=== PATIENT | female | born 1935 | race Caucasian/White ===

== ENCOUNTER 2017-04-22 11:33 | Emergency (ER) | payer MEDICARE, BC ==
[2017-04-22] MEDS: BENZONATATE 100 MG CAPSULE PO ONE (12:03)
--- NOTE | 2017-04-22 12:15 | Emergency Department Record ---
History of Present Illness - General Chief Complaint: Cough Stated Complaint: COUGH Time Seen by Provider: 04/22/17 11:52 Source: Patient Mode of Arrival: Wheelchair Limitations: No limitations - History of Present Illness Initial Comments: The patient is here due to coughing for one day. She denies any CP, SOB, fever, chills, or sputum production but is having significant coughing fits. There is no reported Ap, nausea, vomiting, or diarrhea. MD Complaint: Cough Onset/Timin -: Days(s) Consistency: Constant - Related Data Home Medications Medication Instructions Recorded Confirmed Last Taken Aspirin [Adult Aspirin Regimen] 81 mg PO DAILY 04/22/17 04/22/17 04/22/17 Diltiazem HCl [Diltiazem 24Hr ER] 180 mg PO DAILY 04/22/17 04/22/17 04/22/17 Furosemide [Furosemide] 40 mg PO DAILY 04/22/17 04/22/17 04/22/17 Potassium Chloride [Klor-Con M20] 20 meq PO DAILY 04/22/17 04/22/17 04/22/17 Rosuvastatin Calcium [Rosuvastatin 10 mg PO DAILY 04/22/17 04/22/17 04/22/17 Calcium] Warfarin Sodium [Warfarin Sodium] 2.5 mg PO DAILY 04/22/17 04/22/17 04/22/17 Previous Rx's Medication Instructions Recorded Albuterol Sulfate [Proair Hfa] 2 puff IH QID PRN #1 inhaler 04/22/17 Benzonatate [Tessalon] 1 cap PO Q8H PRN #20 cap 04/22/17 Doxycycline Monohydrate [Mondoxyne 100 mg PO BID #14 capsule 04/22/17 Nl] Allergies Allergy/AdvReac Type Severity Reaction Status Date / Time NO KNOWN DRUG ALLERGY Allergy PT UNSURE Uncoded 04/22/17 11:34 OF REACTION Travel Screening - Travel/Exposure Within Last 30 Days Have you traveled within the last 30 days?: No - Travel/Exposure Within Last Year Have you traveled outside the [place] in the last year?: No - Additonal Travel Details Have you been exposed to anyone with a communicable illness?: No - Travel Symptoms Symptom Screening: None Review of Systems Constitutional: Reports: Malaise. Denies: Chills, Fever Eyes: Denies: Eye discharge ENT: Denies: Congestion Respiratory: Reports: Cough. Denies: Dyspnea, Hemoptysis, Stridor, Wheezes Cardiovascular: Denies: Arrhythmia, Chest pain Past Medical History - SOCIAL HISTORY Smoking Status: Never smoker Alcohol Use: None Drug Use: None - RESPIRATORY Hx Respiratory Disorders: No - CARDIOVASCULAR Hx Cardio Disorders: Yes Hx CHF: Yes Comment:: high cholesterol - NEURO Hx Neuro Disorders: No - GI Hx GI Disorders: No - Hx Genitourinary Disorders: No - ENDOCRINE Hx Endocrine Disorders: Yes Hx Diabetes: Yes (diet controlled) - MUSCULOSKELETAL Hx Musculoskeletal Disorders: No - PSYCH Hx Psych Problems: No - HEMATOLOGY/ONCOLOGY Hx Hematology/Oncology Disorders: No Family Medical History Any Significant Family History?: No Physical Exam - General General Appearance: Alert, Oriented x3, Cooperative, No acute distress - Head Head exam: Atraumatic, Normocephalic, Normal inspection - Eye Eye exam: Normal appearance, PERRL - ENT Throat exam: Normal inspection. negative: Tonsillar erythema, Tonsillar exudate - Neck Neck exam: Normal inspection, Full ROM. negative: Tenderness - Respiratory Respiratory exam: Normal lung sounds bilaterally. negative: Rales, Respiratory distress, Rhonchi, Stridor, Wheezes - Cardiovascular Cardiovascular Exam: Regular rate, Normal rhythm, Normal heart sounds - Extremities Extremities exam: Pedal edema (chronic.). negative: Normal inspection Course Vital Signs 04/22/17 11:46 Temperature 98.4 F Pulse Rate 74 Respiratory 20 Rate Blood Pressure 129/49 Pulse Ox 92 L - Reevaluation(s) Reevaluation #1: The patient is doing OK at this time. She is still coughing but her O2 sats are 92-95%. I did discuss the lab results and the need for F/U. 04/22/17 13:08 Medical Decision Making - Data Complexity MDM Data: Labs Ordered and/or Reviewed, X-Ray Ordered and/or Reviewed - Lab Data Result diagrams: 04/22/17 12:06 04/22/17 12:06 - Radiology Data Radiology results: Report reviewed (CXR: Chronic interstitial changes, no acute infiltrate.) Disposition Disposition: Discharge Clinical Impression: Upper respiratory infection, acute Disposition: Home, Self-Care Condition: (2) Stable Instructions: Upper Respiratory Infection (ED) Additional Instructions: Please take the Doxycycline as directed and use the Tessalon and Proventil as directed. Please see your PCP early next week for recheck. Return to the ER for any worsening cough, any trouble breathing or fever. Prescriptions: Albuterol Sulfate [Proair Hfa] 2 puff IH QID PRN #1 inhaler PRN Reason: Cough And Difficulty Breathing Benzonatate [Tessalon] 1 cap PO Q8H PRN #20 cap PRN Reason: Cough Doxycycline Monohydrate [Mondoxyne Nl] 100 mg PO BID #14 capsule Forms: Patient Portal Access Time of Disposition: 13:11 Quality - Quality Measures Quality Measures: N/A - Blood Pressure Screening View Details: Yes Does Patient Have Any of the Following: No Blood Pressure Classification: Normal BP Reading Systolic Measurement: 119 Diastolic Measurement: 57 Screening for High Blood Pressure: < Normal BP, F/U Not Required > [G8783]
[2017-04-22 12:18] LABS: HEMATOCRIT 39.1 % (35.0-47.0); HEMOGLOBIN 12.2 gm/dl (11.6-16.0); MEAN CORPUSCULAR HEMOGLOBIN 26.5 pg (27-33); MEAN CORPUSCULAR HGB CONC 31.2 g/dl (32-36); MEAN PLATELET VOLUME 9.5 fl (7.4-10.4); PLATELET COUNT 222 K/uL (130-400); RED CELL DISTRIBUTION WIDTH 18.5 % (11.5-14.5)
[2017-04-22 12:30] LABS: INR 2.19; PARTIAL THROMBOPLASTIN TIME 36.3 SECONDS (24.5-39.1); PLATELET ESTIMATE NORMAL (NORMAL); PROTHROMBIN TIME (PATIENT) 23.8 SECONDS (9.5-12.1)
[2017-04-22 12:31] LABS: CREATININE 1.1 mg/dL (0.5-0.9)
[2017-04-22] MEDS: DOXYCYCLINE HYCLATE 100 MG CAPSULE PO ONE (12:59)
--- NOTE | 2017-04-23 07:20 | RADIOLOGY REPORT ---
EXAM: CHEST, TWO VIEWS HISTORY: CHRONIC NONPRODUCTIVE COUGH. TECHNIQUE: Upright PA and lateral views of the chest were obtained. Comparison: Chest single view dated 09/06/11. FINDINGS: The cardiac silhouette projects mildly enlarged. No pulmonary venous hypertension is seen. Mixed primarily coarse reticular opacities are noted in each lung most pronounced in the lower zones. These are more pronounced than previously demonstrated. These findings are suspicious for pulmonary fibrosis/chronic interstitial change. Mild superimposed alveolitis particularly in the right mid to lower lung would be difficult to, however, exclude. No lung consolidation, costophrenic angle blunting or pneumothorax. There are degenerative changes scattered within the visualized spine associated with accentuation of the normal thoracic kyphosis, IMPRESSION: 1. CARDIOMEGALY WITHOUT PULMONARY VENOUS HYPERTENSION. 2. MIXED PRIMARILY RETICULAR OPACITIES SCATTERED IN EACH LUNG MOST PRONOUNCED IN THE LOWER ZONES SUSPICIOUS FOR CHRONIC INTERSTITIAL CHANGE/FIBROSIS. MINOR UNDERLYING ALVEOLITIS WOULD BE DIFFICULT TO EXCLUDE, PARTICULARLY AT THE MID TO LOWER RIGHT LUNG LEVEL. A COMPONENT OF INTERSTITIAL EDEMA THOUGH LESS LIKELY IS NOT EXCLUDED. JOB NUMBER: [id number] [facility]
== END 2017-04-22 13:24 | disposition home or self-care (01) ==
LOC: ER 11:33
DX: J06.9 Acute upper respiratory infection, unspecified (principal); R05 Cough; I50.9 Heart failure, unspecified; Z79.01 Long term (current) use of anticoagulants
CPT/HCPCS: 71046; 80048; 85027; 85610; 85730; 99283; 99284

== ENCOUNTER 2017-04-23 08:26 | Inpatient (IN) | payer MEDICARE, BC ==
[2017-04-23] MEDS ORDERED: SODIUM CHLORIDE 0.9% 500 ML IV ONE (08:27)
[2017-04-23] MEDS ORDERED: ACETAMINOPHEN 1,000 MG/100 ML BTL IVPB ONE (08:28)
--- NOTE | 2017-04-23 08:34 | Emergency Department Record ---
History of Present Illness - General Chief Complaint: Fall Injury Stated Complaint: fall Time Seen by Provider: 04/23/17 08:26 Source: Patient, Family, EMS Mode of Arrival: Ambulatory Limitations: No limitations - History of Present Illness Initial Comments: 81 yo female presents after a fall. She was using her walker going to the bathroom. She lost control and fell. She injured her left knee. She was not able to stand up du to pain and swelling. She is on Coumadin. She did not his her head. No other injuries. She denies any LOC. No neck pain, chest pain or back pain. No hip pain. She has had a recent URI. Her PCP is Dr Shelby. She is on Coumadin for atrial fibrillation. The patient lives with her son. She had called him for help when she was unable to get up on her own. Complaint: Fall -: Hour(s) (1) Fall From: Standing When Fall Occurred: 1 hour DEBONER Fall Witnessed: No Place Fall Occurred: Home Loss of Consciousness: None Symptoms Prior to Fall: None Location: Other (knee left) Location - Extremities: Left: Knee Severity: Severe Quality: Aching Context: Recent illness (URI) Associated Symptoms: Denies - Beata Coma Scale Eye Response: (4) Open spontaneously Motor Response: (6) Obeys commands Verbal Response: (5) Oriented Beata Total: 15 - Related Data Home Medications Medication Instructions Recorded Confirmed Last Taken Metoprolol Tartrate [Lopressor] 50 mg PO BID 04/23/17 04/23/17 1 Day Ago ~04/22/17 Previous Rx's Medication Instructions Recorded Albuterol Sulfate [Proair Hfa] 2 puff IH QID PRN #1 inhaler 04/22/17 Benzonatate [Tessalon] 1 cap PO Q8H PRN #20 cap 04/22/17 Doxycycline Monohydrate [Mondoxyne 100 mg PO BID #14 capsule 04/22/17 Nl] Allergies Allergy/AdvReac Type Severity Reaction Status Date / Time NO KNOWN DRUG ALLERGY Allergy PT UNSURE Uncoded 04/23/17 08:33 OF REACTION Review of Systems Constitutional: Denies: Chills, Fever, Malaise, Night sweats, Weakness Eyes: Denies: Eye discharge, Eye pain, Photophobia, Vision change ENT: Reports: Congestion. Denies: Throat pain Respiratory: Reports: Cough. Denies: Dyspnea, Hemoptysis, Stridor, Wheezes Cardiovascular: Reports: Arrhythmia, Edema. Denies: Chest pain, Palpitations, Syncope Endocrine: Denies: Fatigue, Polydipsia Gastrointestinal: Denies: Abdominal pain, Diarrhea, Nausea, Vomiting Genitourinary: Denies: Dysuria Musculoskeletal: Reports: As per HPI, Arthralgia, Joint swelling, Myalgia. Denies: Back pain, Neck pain Skin: Reports: As per HPI, Bruising, Change in color Neurological: Denies: Confusion, Headache, Numbness, Tremors, Vertigo, Weakness Psychiatric: Denies: Anxiety Hematological/Lymphatic: Denies: Blood Clots, Easy bleeding, Easy bruising Past Medical History - SOCIAL HISTORY Smoking Status: Never smoker Drug Use: None - RESPIRATORY Hx Respiratory Disorders: No - CARDIOVASCULAR Hx Cardio Disorders: Yes Hx CHF: Yes Comment:: high cholesterol - NEURO Hx Neuro Disorders: No - GI Hx GI Disorders: No - Hx Genitourinary Disorders: No - ENDOCRINE Hx Endocrine Disorders: Yes Hx Diabetes: Yes (diet controlled) - MUSCULOSKELETAL Hx Musculoskeletal Disorders: No - PSYCH Hx Psych Problems: No - HEMATOLOGY/ONCOLOGY Hx Hematology/Oncology Disorders: No Physical Exam - General General Appearance: Alert, Oriented x3, Cooperative, No acute distress Limitations: No limitations - Head Head exam: Atraumatic, Normocephalic, Normal inspection Head exam detail: negative: Abrasion, Contusion, Hematoma, Laceration - Eye Eye exam: Normal appearance, PERRL. negative: Conjunctival injection, Periorbital swelling, Scleral icterus - ENT ENT exam: Normal exam, Mucous membranes moist Ear exam: Normal external inspection Nasal Exam: Normal inspection Mouth exam: Normal external inspection Teeth exam: Normal inspection Throat exam: Normal inspection. negative: Tonsillar erythema, Tonsillomegaly, Tonsillar exudate, R peritonsillar mass, L peritonsillar mass - Neck Neck exam: Normal inspection, Full ROM. negative: Tenderness - Respiratory Respiratory exam: Normal lung sounds bilaterally, Decreased breath sounds, Rhonchi. negative: Accessory muscle use, Prolonged expiratory, Respiratory distress, Stridor, Wheezes - Cardiovascular Cardiovascular Exam: Irregular rhythm. negative: Regular rate Peripheral Pulses: 2+: Radial (R), Radial (L) - GI/Abdominal GI/Abdominal exam: Soft. negative: Distended, Guarding, Rebound, Rigid, Tenderness - Rectal Rectal exam: Deferred - exam: Deferred - Extremities Extremities exam: Joint swelling, Normal capillary refill, Tenderness, Other ( hip and ankle are non tender, She was able to bear weight. She has some pain laterally with ROM). negative: Normal inspection, Calf tenderness, Full ROM, Pedal edema Image of Full Body: 1 - lateral knee tenderness, lateral knee hematoma, intact skin, pain with ROM - Back Back exam: Reports: Normal inspection, Full ROM. Denies: Muscle spasm, Rash noted, Tenderness - Neurological Neurological exam: Alert, Normal gait, Oriented X3 - Psychiatric Psychiatric exam: Normal affect, Normal mood - Skin Skin exam: Dry, Intact, Warm. negative: Normal color (bruise to lateral knee) Course - Reevaluation(s) Reevaluation #1: 04/23/17 08:39 ED visit from yesterday reviewed Chronic changes on the CXR. Rx provided for bronchitis. EKG 08:34 Atrial fibrillation, rate of 99, intervals RBBB, Qtc 493, diffuse non specific ST changes. Prior was on 10/16/11 was afib 04/23/17 08:44 04/23/17 08:51 No acute changes on the CBC 04/23/17 09:06 The Influenza A is positive The CMP with mild changes in AG and HCO3. 04/23/17 09:07 INR is 2.2 04/23/17 09:08 The XR was read as osteopenia no acute fracture 04/23/17 09:20 The patient is not better from her fly symptoms. Her oxygen levels drop to upper 80's. Given her frail state and injury she will be admitted to [facility]. I LINDA Bain regarding admission. Tamiflu started. 04/23/17 09:29 Admission orders were placed Medical Decision Making - Lab Data Result diagrams: 04/23/17 08:30 04/23/17 08:30 Disposition Disposition: Admit Clinical Impression: Influenza A, Hematoma, Hypoxia Knee contusion Qualifiers: Encounter type: initial encounter Laterality: left Qualified Code(s): S80.02XA - Contusion of left knee, initial encounter Disposition: Still a Patient at [facility] Decision to Admit: Admit from ER Decision to Admit Date: 04/23/17 Decision to Admit Time: :11 Forms: Patient Portal Access Time of Disposition: :11 Quality - Quality Measures Quality Measures: N/A - Blood Pressure Screening Does Patient Have Any of the Following: No Blood Pressure Classification: Hypertensive Reading Systolic Measurement: 132 Diastolic Measurement: 115 Screening for High Blood Pressure: < Pre-Hypertensive BP, F/U Documented > [ G8950] Pre-Hypertensive Follow-up Interventions: Referral to alternative/primary care provider.
[2017-04-23 08:41] LABS: BASO % 0.2 % (0-6); EOS % 0.2 % (0-6); HEMATOCRIT 40.5 % (35.0-47.0); HEMOGLOBIN 12.6 gm/dl (11.6-16.0); LYMPH % 4.9 % (16-45); MEAN CELL VOLUME 85.4 fl (81-97); MEAN CORPUSCULAR HEMOGLOBIN 26.6 pg (27-33); MEAN CORPUSCULAR HGB CONC 31.1 g/dl (32-36); MEAN PLATELET VOLUME 9.5 fl (7.4-10.4); MONO % 9.7 % (0-9); PLATELET COUNT 207 K/uL (130-400); RED BLOOD COUNT 4.74 M/uL (3.80-5.40); RED CELL DISTRIBUTION WIDTH 18.7 % (11.5-14.5); WHITE BLOOD COUNT W/O DIFF 4.9 K/uL (4.2-12.2)
[2017-04-23 08:54] LABS: INR 2.26; PARTIAL THROMBOPLASTIN TIME 37.1 SECONDS (24.5-39.1); PROTHROMBIN TIME (PATIENT) 24.6 SECONDS (9.5-12.1)
[2017-04-23 08:55] LABS: BLOOD UREA NITROGEN 21 mg/dL (8-23); CREATININE 0.9 mg/dL (0.5-0.9); EST GLOMERULAR FILTRATION RATE > 60 mL/min
[2017-04-23 08:56] LABS: TOTAL PROTEIN 7.5 g/dL (6.6-8.7)
[2017-04-23 08:58] LABS: GLUCOSE,RANDOM 149 mg/dL (74-109)
[2017-04-23 09:00] LABS: ALT/SGPT 13 U/L (<33)
[2017-04-23 09:01] LABS: ALB/GLOB RATIO 1.1 (1.1-1.8); ALKALINE PHOSPHATASE 103 U/L (35-104); AST/SGOT 31 U/L (10.0-35.0)
[2017-04-23 09:03] LABS: INFLUENZA A POSITIVE (NEGATIVE); INFLUENZA B NEGATIVE (NEGATIVE)
[2017-04-23] MEDS ORDERED: OSTELTAMIVIR 75 MG CAP PO ONE (09:05)
[2017-04-23] MEDS ORDERED: BENZONATATE 100 MG CAPSULE PO PRN (09:18)
[2017-04-23 09:45] LABS: ABO GROUP O; RH TYPE POSITIVE
[2017-04-23 09:51] LABS: ANTIBODY SCREEN NEGATIVE (NEGATIVE)
[2017-04-23] MEDS ORDERED: DOXYCYCLINE HYCLATE 100 MG CAPSULE PO SCH (10:00)
[2017-04-23] MEDS ORDERED: POTASSIUM CHLORIDE 20 MEQ TABLET PO SCH (10:00)
[2017-04-23] MEDS: FUROSEMIDE 40 MG TABLET PO SCH ×2 (11:17→13:53)
[2017-04-23] MEDS: METOPROLOL TART 50 MG TABLET PO SCH ×2 (11:17→22:55)
[2017-04-23] MEDS: ATORVASTATIN 20 MG TABLET PO SCH (11:17)
[2017-04-23] MEDS: DILTIAZEM 180MG CR CAPSULE PO SCH (11:18)
[2017-04-23] MEDS ORDERED: ACETAMINOPHEN 1,000 MG/100 ML BTL IVPB SCH (12:41)
[2017-04-23] MEDS ORDERED: 0.9 % SODIUM CHLORIDE 1000ML 1,000 ML IV PRN (12:41)
[2017-04-23] MEDS ORDERED: MORPHINE SULFATE 5 MG/ML PFS IVP PRN ×2 (12:41→15:21)
--- NOTE | 2017-04-23 14:30 | RADIOLOGY REPORT ---
EXAM: LEFT KNEE, TWO VIEWS HISTORY: FALL WITH TRAUMA TO ANTEROLATERAL ASPECT OF KNEE. COUMADIN THERAPY. TECHNIQUE: AP and crosstable lateral views of the left knee were obtained. Encounter: Initial. FINDINGS: There is mild diffuse osteopenia. No acute fracture, dislocation, or destructive bone lesion is seen. There are mild osteoarthritic changes of the medial and lateral compartments. Moderate to severe degenerative change of the patellofemoral compartment. No definite joint effusion. There is an area of soft tissue swelling anterolaterally measuring approximately 5.8 x 4.9 cm. Given history of trauma, this is likely a hematoma. IMPRESSION: 1. OSTEOPENIA. NO ACUTE FRACTURE NOR DISLOCATION. 2. TRICOMPARTMENTAL DEGENERATIVE CHANGES MOST PRONOUNCED IN THE PATELLOFEMORAL JOINT WHERE THE CHANGES ARE MODERATE TO SEVERE. 3. MODERATE ANTEROLATERAL SOFT TISSUE SWELLING SUSPICIOUS FOR HEMATOMA. JOB NUMBER: [id number] MTDD
[2017-04-23] MEDS ORDERED: 0.9 % SODIUM CHLORIDE 1000ML 1,000 ML IV ONE (15:20)
[2017-04-23] MEDS: ACETAMINOPHEN 500 MG TABLET PO SCH (17:33)
[2017-04-23] MEDS: OSTELTAMIVIR 75 MG CAP PO SCH (22:55)
[2017-04-24] MEDS: ACETAMINOPHEN 500 MG TABLET PO SCH ×4 (05:43→17:25)
[2017-04-24 07:44] LABS: INR 1.67; PROTHROMBIN TIME (PATIENT) 18.1 SECONDS (9.5-12.1)
[2017-04-24] MEDS: METOPROLOL TART 50 MG TABLET PO SCH ×2 (10:16→22:01)
[2017-04-24] MEDS: DILTIAZEM 180MG CR CAPSULE PO SCH (10:16)
[2017-04-24] MEDS: ATORVASTATIN 20 MG TABLET PO SCH (10:17)
[2017-04-24] MEDS: OSTELTAMIVIR 75 MG CAP PO SCH ×2 (10:17→22:02)
[2017-04-25] MEDS: ACETAMINOPHEN 500 MG TABLET PO SCH ×3 (06:07→13:12)
[2017-04-25 07:30] LABS: HEMATOCRIT 36.4 % (35.0-47.0); HEMOGLOBIN 11.2 gm/dl (11.6-16.0)
[2017-04-25 07:40] LABS: INR 1.58; PROTHROMBIN TIME (PATIENT) 17.1 SECONDS (9.5-12.1)
[2017-04-25 07:47] LABS: BLOOD UREA NITROGEN 20 mg/dL (8-23); CREATININE 0.7 mg/dL (0.5-0.9); EST GLOMERULAR FILTRATION RATE > 60 mL/min; GLUCOSE,RANDOM 88 mg/dL (74-109)
[2017-04-25] MEDS: ATORVASTATIN 20 MG TABLET PO SCH (10:45)
[2017-04-25] MEDS: OSTELTAMIVIR 75 MG CAP PO SCH (10:46)
[2017-04-25] MEDS: METOPROLOL TART 50 MG TABLET PO SCH (10:46)
[2017-04-25] MEDS: DILTIAZEM 180MG CR CAPSULE PO SCH (10:47)
[2017-04-25] MEDS ORDERED: ALBUTEROL HFA 8 GM INHALER INH SCH (14:00)
--- NOTE | 2017-04-25 14:37 | Discharge Note ---
VTE H&P Assessment - Risk for VTE Risk for VTE: Yes Risk Level: Moderate Risk Assessment Date: 04/23/17 Risk Assessment Time: 10:00 VTE Orders Placed or Will Be Placed: No VTE Reason for No Prophylaxis: Complication of Medical Care (on coumadin ) Discharge Medications - Discharge Medications Prescriptions: Albuterol Sulfate [Ventolin Hfa] 2 puff INH RESP.Q4H.WA #1 inhaler Oseltamivir Phosphate [Tamiflu] 75 mg PO BID #10 capsule Home Medications: Ambulatory Orders Albuterol Sulfate [Proair Hfa] 2 puff IH QID PRN #1 inhaler 04/22/17 [Last Taken 1 Day Ago ~04/22/17] Benzonatate [Tessalon Perles] 1 cap PO Q8H PRN #20 cap 04/22/17 [Last Taken 1 Day Ago ~04/22/17] Diltiazem HCl [Diltiazem 24Hr ER] 180 mg PO DAILY 04/22/17 [Last Taken 04/22/17] Rosuvastatin Calcium 10 mg PO DAILY 04/22/17 [Last Taken 04/22/17] Metoprolol Tartrate [Lopressor] 50 mg PO BID 04/23/17 [Last Taken 1 Day Ago ~02/27] Albuterol Sulfate [Ventolin Hfa] 2 puff INH RESP.Q4H.WA #1 inhaler 04/25/17 [ Last Taken Unknown] Oseltamivir Phosphate [Tamiflu] 75 mg PO BID #10 capsule 04/25/17 [Last Taken Unknown] Discharge Note - Date Date of Discharge Note: 04/25/17 Disposition: Home, Self-Care Condition: (1) Good Additional Instructions: follow up with Dr. Shelby in one week off coumadin and aspirin for one week because of large hematoma left knee abelino wrap for left leg may leave it off at night tamiflu 75 mg Twice a day for 5 more days stop lasix and potassium Forms: Patient Portal Access
--- NOTE | 2017-04-26 07:52 | History and Physical Report ---
DATE OF ADMISSION: 04/23/2017 Surgeon: Wilbur Bain DO CHIEF COMPLAINT: Cough, wheezing, short of breath, positive for influenza, weakness, and large hematoma on the left lateral knee area, from a fall. HISTORY OF PRESENT ILLNESS: This 81-year-old female has a cough, congestion, wheezing, and weakness. She fell down at home and she came in by ambulance to the ER, evaluated by Dr. Forte. The patient was evaluated the day before by Dr. Wylie with a diagnosis of upper respiratory infection and started on doxycycline twice a day. The patient was too weak to go home, Dr. Forte felt that her respiratory status was worse with wheezing and having a pulse OX of 91% on room air, occasionally dipping down to 88% according to my phone conversation with him, but it is not documented in the chart. PAST MEDICAL HISTORY: Atrial fibrillation, on Coumadin therapy. Hypercholesterolemia, hypertension, diet-controlled diabetes. PAST SURGICAL HISTORY: Hysterectomy, breast biopsy. MEDICATIONS ON ADMISSION: 1. Coumadin daily, the exact dose will have to be explored, says 2.5 on the chart. 2. Crestor 10 mg daily. 3. Potassium chloride 20 mg daily. 4. Metoprolol tartrate 50 mg b.i.d. 5. Lasik 40 mg daily. 6. She was started on doxycycline yesterday twice a day. I am going to stop that at this time, because of diagnosis of influenza. 7. Diltiazem 180 mg daily. 8. Tessalon 1 cap q.8h. p.r.n. 9. Aspirin 81 mg daily. 10. ProAir inhaler 2 puffs q.i.d. p.r.n. ALLERGIES: No known drug allergies. FAMILY PSYCHOSOCIAL HISTORY: Documented in chart. She has never smoked. No drug or alcohol use. REVIEW OF SYSTEMS: HEENT: She has congestion, cough, cold for the last 3 days. CARDIOVASCULAR: No chest pain, palpitations, or arrhythmias. RESPIRATORY: She is wheezing and coughing, congested. GASTROINTESTINAL: No nausea, vomiting, diarrhea, black stools or bloody stools. GENITOURINARY: No dysuria, hematuria, or frequency or burning on urination. MUSCULOSKELETAL: No joint or bone abnormalities. She does have a large bruise on the left knee, lateral side, with an Deyvi wrap on it from the emergency department. NEUROLOGIC: No CVA paralysis or paresthesias. GYNECOLOGIC: No abnormal lumps in her breasts or vaginal bleeding. ENDOCRINE: She has diet controlled diabetes. No hypothyroidism. INTEGUMENT: No rash, ulcer, changes of moles, yellow skin, but she has a large hematoma on the lateral side of her left knee. PHYSICAL EXAMINATION: GENERAL: Height is 4 feet 11 inches, weight is 162 pounds. VITAL SIGNS: Temperature 98.7, pulse is 76, blood pressure is 131/67, respiratory rate is 22, pulse OX is 91% on 2 liters of O2. HEENT: Pupils are equal, round, and reactive to light and accomodation. Extraocular muscles intact. Throat is clear. Nose is clear. Tympanic membranes are leonard. She has congestion and posterior nasal drainage. No sore throat. NECK: Supple. No jugular venous distention, no hepatojugular reflux, no carotid bruits. Thyroid is smooth. CARDIOVASCULAR: Regular rate and rhythm without murmurs, clicks, rubs, or gallops. RESPIRATORY: Wheezing bilaterally with deep inspiration and coughing with deep inspiration, spasmodic. ABDOMEN: Soft, nontender, no hepatosplenomegaly, no mass, no tenderness. Bowel sounds are active, no bruits. EXTREMITIES: No pitting edema, no cyanosis, no clubbing. Full range of motion, peripheral pulses are good. There is a hematoma on the left lateral knee with an Deyvi wrap on it. BREASTS: Deferred. GYNECOLOGIC: Deferred. RECTAL: Deferred. NEUROLOGIC: Cranial nerves 2 through 12 intact. No gross defects. Sensation normal, strength normal, deep tendon reflexes equal bilaterally. Babinski's is negative. MENTAL STATUS: Alert and oriented x 3. IMPRESSION: 1. Influenza A. 2. Bronchitis. 3. Hypoxia with wheezing and coughing. 4. Hematoma of the left lateral leg area with an Deyvi wrap on it. 5. History of atrial fibrillation, on Coumadin therapy. 6. History of hypercholesterolemia. 7. History of hypertension. PLAN: 1. Cautious IV fluids. 2. We will stop the Lasik and potassium, stop the doxycycline. Continue the Tamiflu. 3. Gentle Deyvi wrap on the hematoma. 4. Stop the Coumadin for a few days to let this hematoma at least solidify. MTDD
--- NOTE | 2017-04-26 08:10 | Discharge Summary ---
DATE OF ADMISSION: 04/23/2017 DATE OF DISCHARGE: 04/25/2017 Attending physician: Wilbur Bain DO DISCHARGE DIAGNOSES: 1. Influenza bronchitis. 2. Hypoxia, which has resolved. 3. Hematoma, large, left knee area. 4. History of atrial fibrillation, on Coumadin. REASON FOR HOSPITALIZATION: Cough, congestion, and she fell, was very weak, could not get up, had a large hematoma to the left lower leg, and then she is positive for influenza A. She also has atrial fibrillation, on Coumadin therapy, and because of the hematoma, will stop the Coumadin and aspirin while the hematoma is at least coalescing, approximately 1 week. SIGNIFICANT FINDINGS: X-ray of the knee was negative for fracture. The chest x-ray, which was done on 04/22/2017, when she was in the emergency department, saw Dr. Wylie, showed cardiomegaly without pulmonary vascular congestion, chronic interstitial changes, fibrosis, but no acute infiltrate identified. LABORATORY AND TEST DATA: Influenza A positive. Her white count was 4900, hemoglobin was 12.6, her pulse OX in the emergency department was 88-87%. Dr. Wylie was concerned, wanted her admitted to the hospital to make sure she was stable. The PT/INR when she came in was 2.26. We let it drift down because of the large hematoma on the leg, rather than reversing it. On discharge, the PT/INR was 1.58. I recommended staying off the Coumadin and aspirin for 1 week and then restarting the Coumadin at that time if Dr. Shelby feels it is okay. The patient was started on Tamiflu 75 mg twice a day. The doxycycline was stopped. The Lasix and potassium were stopped. She was started on Ventolin inhaler 2 puffs 4 times a day. HOSPITAL COURSE: Gradually improved, walking around the room, with pulse OX being checked for respiratory. She did not qualify for home oxygen. She is stable to go home at this time. CONDITION ON DISCHARGE: Much improved. DISCHARGE INSTRUCTIONS: 1. Follow up with Dr. Shelyb in 1 week, sometime next week. 2. Off the Coumadin for [address] Shelby feels it is okay, she can restart the Coumadin back up again. 3. Ventolin inhaler 2 puffs 4 times a day. 4. Stop the Lasix. 5. Stop the potassium. 6. Tamiflu 75 mg b.i.d. for 5 more days. 7. Deyvi wrap to the left leg and the Deyvi wrap can be left off at night. 8. Continue her home medications of Crestor daily. 9. Lopressor twice a day 50 mg. 10. Stop the doxycycline because she has got influenza. 11. Diltiazem 180 mg once a day. 12. Tessalon Stevenes p.r.n. 13. Stop the aspirin. 14. Continue the inhaler of Ventolin. CC: Feliciano Shelby, DO KHAND
== END 2017-04-25 16:45 | disposition home or self-care (01) | DRG 195 ==
LOC: ER 08:26 → MEDSURG 10:47
PROVIDERS: ADMIT Emergency Medicine; ATTEND Emergency Medicine
DX: J10.1 Influenza due to other identified influenza virus with other respiratory manifestations (principal); I48.91 Unspecified atrial fibrillation; Z79.01 Long term (current) use of anticoagulants; E78.00 Pure hypercholesterolemia, unspecified; I10 Essential (primary) hypertension; S80.02XA Contusion of left knee, initial encounter; W18.30XA Fall on same level, unspecified, initial encounter; Z91.81 History of falling
CPT/HCPCS: 36416; 80048; 80053; 80320; 82948; 85014; 85018; 85027; 85610; 85730; 86850; 86900; 86901; 87400; 93005; 93010; 93041; 94620; 94640; 94760; 94761; 96374; 99223; 99233; 99239; 99285

== ENCOUNTER 2017-06-06 19:26 | Inpatient (IN) | payer MEDICARE, BC ==
[2017-06-06 19:50] LABS: BASO % 0.2 % (0-6); EOS % 0.6 % (0-6); GRAN % 79.2 % (47-80); HEMATOCRIT 41.1 % (35.0-47.0); HEMOGLOBIN 12.6 gm/dl (11.6-16.0); LYMPH % 6.5 % (16-45); MEAN CELL VOLUME 88.6 fl (81-97); MEAN CORPUSCULAR HEMOGLOBIN 27.2 pg (27-33); MEAN CORPUSCULAR HGB CONC 30.7 g/dl (32-36); MEAN PLATELET VOLUME 9.2 fl (7.4-10.4); MONO % 13.5 % (0-9); PLATELET COUNT 230 K/uL (130-400); RED BLOOD COUNT 4.64 M/uL (3.80-5.40); RED CELL DISTRIBUTION WIDTH 20.4 % (11.5-14.5); WHITE BLOOD COUNT W/O DIFF 6.2 K/uL (4.2-12.2)
[2017-06-06 19:59] LABS: BLOOD UREA NITROGEN 14 mg/dL (8-23); CREATININE 0.8 mg/dL (0.5-0.9); EST GLOMERULAR FILTRATION RATE > 60 mL/min
[2017-06-06 20:00] LABS: TOTAL PROTEIN 7.1 g/dL (6.6-8.7)
[2017-06-06 20:02] LABS: GLUCOSE,RANDOM 148 mg/dL (74-109)
[2017-06-06 20:05] LABS: ALB/GLOB RATIO 1.1 (1.1-1.8); ALBUMIN 3.7 g/dL (4.0-5.0); ALKALINE PHOSPHATASE 103 U/L (35-104); ALT/SGPT 9 U/L (<33); AST/SGOT 18 U/L (10.0-35.0)
--- NOTE | 2017-06-06 20:13 | Emergency Department Record ---
History of Present Illness - General Chief Complaint: Shortness of breath Stated Complaint: JOB,CANT EAT,NAUSEA,WEAK Time Seen by Provider: 06/06/17 19:46 Source: Patient, Family Mode of Arrival: Wheelchair Limitations: No limitations - History of Present Illness Initial Comments: pt was recently hospitalized for the flu and had fallen injuring her knee, therefore her coumadin was stopped. she has a hx of a fib. she has been getting increasingly sob the last 2 days. MD Complaint: Cough, Shortness of breath Onset/Timin -: Days(s) Consistency: Getting worse Improves With: Nothing Worsens With: Exertion Known History Of: Congestive heart failure, Recurrent pneumonia Context: Recent illness, Recent URI Associated Symptoms: Cough, lower extremity pain, Sputum production - Related Data Home Oxygen Therapy: No Home Medications Medication Instructions Recorded Confirmed Last Taken Aspirin 81 mg PO DAILY 06/06/17 06/06/17 Unknown Previous Rx's Medication Instructions Recorded Albuterol Sulfate [Proair Hfa] 2 puff IH QID PRN #1 inhaler 04/22/17 Albuterol Sulfate [Ventolin Hfa] 2 puff INH RESP.Q4H.WA #1 inhaler 04/25/17 Allergies Allergy/AdvReac Type Severity Reaction Status Date / Time NO KNOWN DRUG ALLERGY Allergy PT UNSURE Uncoded 04/23/17 08:33 OF REACTION Travel Screening - Travel/Exposure Within Last 30 Days Have you traveled within the last 30 days?: No - Travel Symptoms Symptom Screening: None Review of Systems Reviewed: No additional complaints except as noted below Constitutional: Reports: As per HPI. Denies: Chills, Fever, Malaise, Night sweats, Weakness, Weight change Eyes: Reports: As per HPI. Denies: Eye discharge, Eye pain, Photophobia, Vision change ENT: Reports: As per HPI, Congestion. Denies: Dental pain, Ear pain, Epistaxis , Hearing loss, Throat pain Respiratory: Reports: As per HPI, Cough, Dyspnea. Denies: Hemoptysis, Stridor, Wheezes Cardiovascular: Reports: As per HPI. Denies: Arrhythmia, Chest pain, Dyspnea on exertion, Edema, Murmurs, Orthopnea, Palpitations, Paroxysmal nocturnal dyspnea, Rheumatic Fever, Syncope Endocrine: Reports: As per HPI. Denies: Fatigue, Heat or cold intolerance, Polydipsia, Polyuria Gastrointestinal: Reports: As per HPI. Denies: Abdominal pain, Constipation, Diarrhea, Hematemesis, Hematochezia, Melena, Nausea, Vomiting Genitourinary: Reports: As per HPI. Denies: Abnormal menses, Discharge, Dyspareunia, Dysuria, Frequency, Hematuria, Incontinence, Retention, Urgency Musculoskeletal: Reports: As per HPI. Denies: Arthralgia, Back pain, Gout, Joint swelling, Myalgia, Neck pain Skin: Reports: As per HPI, Rash. Denies: Bruising, Change in color, Change in hair/nails, Lesions, Pruritus Neurological: Reports: As per HPI. Denies: Abnormal gait, Confusion, Headache, Numbness, Paresthesias, Seizure, Tingling, Tremors, Vertigo, Weakness Psychiatric: Reports: As per HPI. Denies: Anxiety, Auditory hallucinations, Depression, Homicidal thoughts, Suicidal thoughts, Visual hallucinations Hematological/Lymphatic: Reports: As per HPI. Denies: Anemia, Blood Clots, Easy bleeding, Easy bruising, Swollen glands Past Medical History - SOCIAL HISTORY Smoking Status: Never smoker - RESPIRATORY Hx Respiratory Disorders: No - CARDIOVASCULAR Hx Cardio Disorders: Yes Hx CHF: Yes Hx Irregular Heartbeat: Yes (Atrial fib) Comment:: high cholesterol - NEURO Hx Neuro Disorders: No - GI Hx GI Disorders: No - Hx Genitourinary Disorders: No - ENDOCRINE Hx Endocrine Disorders: Yes Hx Diabetes: Yes (diet controlled) - MUSCULOSKELETAL Hx Musculoskeletal Disorders: No - PSYCH Hx Psych Problems: No - HEMATOLOGY/ONCOLOGY Hx Hematology/Oncology Disorders: No Family Medical History Any Significant Family History?: Yes Hx Diabetes: Mother Hx Resp Disorders: Mother *Resp Comment: TB Physical Exam - General General Appearance: Alert, Oriented x3, Cooperative, Mild distress - Head Head exam: Normal inspection - Eye Eye exam: Normal appearance, PERRL, EOMI Pupils: Normal accommodation - ENT ENT exam: Normal exam, Mucous membranes moist, Normal external ear exam, Normal orophraynx Ear exam: Normal external inspection. negative: External canal tenderness Nasal Exam: Normal inspection. negative: Discharge, Sinus tenderness Mouth exam: Normal external inspection, Tongue normal Teeth exam: Normal inspection. negative: Dental caries Throat exam: Normal inspection. negative: Tonsillar erythema, Tonsillar exudate - Neck Neck exam: Normal inspection, Full ROM. negative: Tenderness - Respiratory Respiratory exam: Normal lung sounds bilaterally. negative: Respiratory distress - Cardiovascular Cardiovascular Exam: Regular rate, Normal rhythm, Normal heart sounds - GI/Abdominal GI/Abdominal exam: Soft, Normal bowel sounds. negative: Tenderness - Rectal Rectal exam: Deferred - exam: Deferred - Extremities Extremities exam: Full ROM, Normal capillary refill, Pedal edema, Tenderness - Back Back exam: Reports: Normal inspection, Full ROM. Denies: Muscle spasm, Rash noted, Tenderness - Neurological Neurological exam: Alert, CN II-XII intact, Normal gait, Oriented X3 - Psychiatric Psychiatric exam: Normal affect, Normal mood - Skin Skin exam: Dry, Intact, Normal color, Warm Course Vital Signs 06/06/17 06/06/17 19:31 19:38 Temperature 97.4 F L Pulse Rate 73 Pulse Rate [ 70 Pulse Ox Probe] Respiratory 26 H 24 Rate Blood Pressure 138/52 Blood Pressure 138/52 [Left Arm] Pulse Ox 86 L 93 L Medical Decision Making - Lab Data Result diagrams: 06/06/17 19:40 06/06/17 19:40 Lab Results 06/06/17 06/06/17 06/06/17 Range/Units 19:40 19:40 19:40 WBC 6.2 (4.2-12.2) K/uL RBC 4.64 (3.80-5.40) M/uL Hgb 12.6 (11.6-16.0) gm/dl Hct 41.1 (35.0-47.0) % MCV 88.6 (81-97) fl MCH 27.2 (27-33) pg MCHC 30.7 L (32-36) g/dl RDW 20.4 H (11.5-14.5) % Plt Count 230 (130-400) K/uL MPV 9.2 (7.4-10.4) fl Gran % 79.2 (47-80) % Lymphocytes % 6.5 L (16-45) % Monocytes % 13.5 H (0-9) % Eosinophils % 0.6 (0-6) % Basophils % 0.2 (0-6) % D-Dimer 0.80 H (0-0.59) mg/L FEU Sodium 137 (136-145) mmol/L Potassium 4.3 (3.4-4.5) mmol/L Chloride 102 (98-107) mmol/L Carbon Dioxide 22.0 (22-29) mmol/L Anion Gap 13.0 (7-16) BUN 14 (8-23) mg/dL Creatinine 0.8 (0.5-0.9) mg/dL Estimated GFR > 60 mL/min Random Glucose 148 H (74-109) mg/dL Calcium 8.8 (8.8-10.2) mg/dL Total Bilirubin 1.70 H (0.2-1.0) mg/dL Total Protein 7.1 (6.6-8.7) g/dL Disposition Disposition: Admit Clinical Impression: Hypoxia Pneumonia Qualifiers: Pneumonia type: due to unspecified organism Laterality: unspecified laterality Lung location: unspecified part of lung Qualified Code(s): J18.9 - Pneumonia, unspecified organism CHF (congestive heart failure) Qualifiers: Heart failure type: unspecified Heart failure chronicity: acute Qualified Code( s): I50.9 - Heart failure, unspecified Disposition: Still a Patient at [facility] Decision to Admit: Admit from ER Decision to Admit Date: 06/06/17 Decision to Admit Time: 22:51 Condition: (2) Stable Forms: Patient Portal Access Quality - Quality Measures Quality Measures: N/A - Blood Pressure Screening Does Patient Have Any of the Following: No Blood Pressure Classification: Pre-Hypertensive BP Reading Systolic Measurement: 138 Diastolic Measurement: 52 Screening for High Blood Pressure: < Pre-Hypertensive BP, F/U Documented > [ [id number]] Pre-Hypertensive Follow-up Interventions: Follow-up with rescreen every year.
[2017-06-06] MEDS ORDERED: FUROSEMIDE IV 40MG/4ML VIAL IVP ONE (22:42)
[2017-06-06] MEDS ORDERED: CEFTRIAXONE SODIUM 1 GM in 0.9 % SODIUM CHLORIDE 100ML 100 ML IVPB ONE (22:46)
[2017-06-06] MEDS ORDERED: CEFTRIAXONE SODIUM 1 GM in 0.9 % SODIUM CHLORIDE 100ML 100 ML IVPB SCH (23:39)
[2017-06-06] MEDS ORDERED: TEMAZEPAM 15 MG CAPSULE PO PRN (23:39)
[2017-06-06] MEDS ORDERED: NITROGLYCERIN 0.4MG SL TABLET #25 BTL SL PRN (23:39)
[2017-06-06] MEDS ORDERED: ACETAMINOPHEN 500 MG TABLET PO PRN (23:39)
[2017-06-07] MEDS: AZITHROMYCIN 500 MG in 0.9 % SODIUM CHLORIDE 250ML 250 ML IVPB SCH ×2 (01:24→22:51)
[2017-06-07] MEDS ORDERED: PNEUM 13-VAL/PF 0.5 ML IM ONE (01:31)
[2017-06-07 05:30] LABS: CKMB 1.8 ng/mL (<3.77)
--- NOTE | 2017-06-07 07:05 | History & Physical ---
History of Present Illness - Date of Service Date of Service for History & Physical: 06/07/17 - History of Present Illness Admitting Diagnosis: chf, pneumonia, sob, hypoxia History of Present Illness: 81 yo female admitted w/ PNA and fluid overload. Patient presented to our ED after 3-4 days of worsening weakness, shortness of breath and decreased appetite. States she was admitted to Dr. Bain about four weeks ago with influenza. Since patient's previous hospitalization, she's been off her anticoagulation and diuretic therapy. Patient's anticoagulation was stopped due to hematoma of lateral left knee. Prior to her last admission, patient had fallen and hit her left knee. This area has not completely healed and she has continues to have drainage from site. While in the ED, VS's relatively stable aside from O2 of 86% on RA and RR of 26. Blood work obtained and demonstrated normal H/H, glucose 148, d-dimer 0.80 , BNP 7861, trop 0.014, 0.010, CKMB 1.8, EKG: a flutter, and CTA: negative for PE, aneurysm, CMG, interstitial edema, pneumonitis, air space opacities b/l , fibrotic changes of the lung and small B/L pleural effusions. Patient was started on 1 gm of IV Rocephin Q24H, 500 mg of IV Azithromycin daily, 40 mg of IV Lasix, monorail hooker and 2L's of supplemental O2. Patient admitted to the floor for further medical management. 06/07- This morning, patient is lying comfortably in bed with her son at bedside. States she wants to get out of here and go home. She was up all night urination as she received 40 mg of IV Lasix in the ED prior to admission. She admits to frequent urination, weakness, LLE pain where she injured it 4 weeks ago, SOB, cough (non productive), and decreased appetite. She denies CP, heart palpitations, abd pain, n/v, dysuria, hematuria, fever, chills, headache, lightheadedness or dizziness. Patient denies history of CHF. states she has not been taking her Lasix or potassium over the past 4 weeks. She's also been without her anticoagulation since her previous admission. According to Inez, she saw Dr. Shelby a few weeks ago and he placed her on an antibiotic cream for her left knee wound. No cultures of area have been obtained. She was placed on a regular aspirin and coumadin held. She denies h/o MRSA. She's a patient of Dr. Fierro, though hasn't seen him in 2 years. She denies any additional concerns at this time. PCP: Dr. Lindsey Correction[facility] Therapy Director: Dr. Fierro Travel Screening - Travel/Exposure Within Last 30 Days Have you traveled within the last 30 days?: No - Travel/Exposure Within Last Year Have you traveled outside the [place] in the last year?: No - Additonal Travel Details Have you been exposed to anyone with a communicable illness?: No - Travel Symptoms Symptom Screening: Weakness Review of Systems Constitutional: Reports: Chills (at night), Weakness. Denies: Fever, Malaise, Night sweats, Weight change Eyes: Denies: Eye discharge ENT: Reports: Congestion. Denies: Dental pain, Ear pain, Epistaxis, Hearing loss, Throat pain Respiratory: Reports: Cough, Dyspnea. Denies: Hemoptysis, Stridor, Wheezes Cardiovascular: Reports: Arrhythmia (atrial flutter), Dyspnea on exertion, Edema (stable per patient and son, stasis dermatitis w/ bulla noted b/l LE), Paroxysmal nocturnal dyspnea. Denies: Chest pain, Orthopnea, Palpitations, Syncope Endocrine: Reports: Fatigue Gastrointestinal: Denies: Abdominal pain, Constipation, Diarrhea, Hematochezia, Melena, Nausea, Vomiting Genitourinary: Denies: Dysuria, Hematuria, Incontinence Musculoskeletal: Reports: Back pain (chornic). Denies: Gout, Joint swelling Skin: Reports: Change in color (left knee wound, drainage, pain at site, swelling of LE at baseline per patient). Denies: Bruising, Change in hair/nails , Lesions, Pruritus, Rash Neurological: Reports: Weakness. Denies: Abnormal gait, Confusion, Headache, Numbness, Paresthesias, Seizure, Tingling, Tremors, Vertigo Psychiatric: Denies: Anxiety, Auditory hallucinations, Depression, Homicidal thoughts, Suicidal thoughts, Visual hallucinations Hematological/Lymphatic: Denies: Anemia, Blood Clots, Easy bleeding, Easy bruising, Swollen glands Past Medical History - SOCIAL HISTORY Smoking Status: Never smoker Alcohol Use: None Drug Use: None - RESPIRATORY Hx Respiratory Disorders: No Hx Asthma: No Hx Bronchitis: No Hx COPD: No Hx Dyspnea: No Hx Pneumonia: No Hx Pulmonary Embolism: No Hx Sleep Apnea: No Hx Tuberculosis: No Hx of CPAP: No - CARDIOVASCULAR Hx Cardio Disorders: Yes Hx Abnormal EKG: No Hx Cardiac Cath: No Hx Chest Pain: No Hx CHF: Yes (patient denies CHF) Hx Deep Vein Thrombosis: No Hx Edema: Yes Hx Heart Attack: No Hx Hypertension: No Hx Hypotension: No Hx Irregular Heartbeat: Yes (Atrial fib) Hx Palpitations: No Hx Pacemaker/Defib: No Hx Vascular Disease: No Comment:: high cholesterol - NEURO Hx Neuro Disorders: No Hx Brain Tumor: No Hx CVA: No Hx Dementia: No Hx Dizziness: No Hx Headaches: No Hx Neuropathy: No Hx Parkinson's Disease: No Hx Seizures: No Hx Speech Problem: No Hx TIA: No - GI Hx GI Disorders: No Hx Abdominal Pain: No Hx Celiac Disease: No Hx Crohn's Disease: No Hx Diverticulitis: No Hx GI Bleed: No Hx Reflux: No Hx Hepatitis/Jaundice: No Hx Hiatal Hernia: No Hx Irritable Bowel: No Hx Liver Disease: No Hx Nausea/Vomiting: No Hx Obstructive Bowel: No Hx Pancreatitis: No Hx Rectal Bleeding: No Hx Ulcer: No Hx Wt Loss/Wt Gain: No Hx of Polyps: No - Hx Genitourinary Disorders: No Hx Bladder Problem: No Hx Dialysis: No Hx Kidney Stones: No Hx Renal Disease: No Hx UTI: No - ENDOCRINE Hx Endocrine Disorders: Yes Hx Diabetes: Yes (diet controlled) Hx Thyroid Disease: No - MUSCULOSKELETAL Hx Musculoskeletal Disorders: No Hx Arthritis: No Hx Back Injury: No Hx Fibromyalgia: No Hx Gout: No Hx Musculoskeletal Disease: No Hx Osteoporosis: No - PSYCH Hx Psych Problems: No Hx Anxiety: No Hx Behavior Problems: No Hx Depression: No Hx Emotional Abuse: No Hx Sexual Abuse: No Hx Suicide Attempt: No Major Depressive Episode: No Feelings of Hopelessness: No - HEMATOLOGY/ONCOLOGY Hx Hematology/Oncology Disorders: No Hx Anemia: No Hx Blood Disorders: No Hx Bruising: No Hx Cancer: No Hx Clotting Problems: No Hx Sickle Cell Disease: No Hx Unexplained Bleeding: No Hx Blood Transfusions: No Hx Blood Transfusion Reaction: No Family Medical History Any Significant Family History?: Yes Hx Diabetes: Mother Hx Heart Disease: Father *Heart Comment: afib Hx Resp Disorders: Grandparents *Resp Comment: TB H&P Meds/Allergies - Allergies Allergies: Allergies Allergy/AdvReac Type Severity Reaction Status Date / Time NO KNOWN DRUG ALLERGY Allergy PT UNSURE Uncoded 04/23/17 08:33 OF REACTION - Home Medications Home Medications Medication Instructions Recorded Confirmed Last Taken Aspirin 81 mg PO DAILY 06/06/17 06/06/17 Unknown Previous Rx's Medication Instructions Recorded Albuterol Sulfate [Proair Hfa] 2 puff IH QID PRN #1 inhaler 04/22/17 Albuterol Sulfate [Ventolin Hfa] 2 puff INH RESP.Q4H.WA #1 inhaler 04/25/17 - Active Medications Active Medications: Current Medications Acetaminophen (Tylenol 500mg Tab) 1,000 mg PO Q6H PRN PRN Reason: PAIN/TEMP Albuterol Sulfate () 2.5 mg INH RESP.Q4H.WA PRN PRN Reason: DIFFICULTY IN BREATHING Aspirin (Ecotrin (Ec)) 325 mg PO DAILY [facility] Furosemide (Lasix Iv) 20 mg IVP DAILY [facility] Azithromycin 500 mg/ Sodium (Chloride) 250 mls @ 250 mls/hr IVPB Q24H [facility] Stop: 06/11/17 23:40 Last Infusion: 06/07/17 02:30 Dose: Infused Ceftriaxone Sodium 1 gm/ (Sodium Chloride) 100 mls @ 200 mls/hr IVPB Q24H [facility] Stop: 06/11/17 23:40 Last Admin: 06/06/17 23:43 Dose: Not Given Metoprolol Tartrate (Lopressor) 50 mg PO BID [facility] Nitroglycerin (Nitrostat 0.4mg) 0.4 mg SL Q5MIN PRN PRN Reason: CHEST PAIN Non-Formulary Medication (Diltiazem Hcl [Diltiazem 24hr Er]) 180 mg PO DAILY [facility] Non-Formulary Medication (Rosuvastatin Calcium [Rosuvastatin Calcium]) 10 mg PO DAILY [facility] Temazepam (Restoril) 15 mg PO QHS PRN PRN Reason: INSOMNIA Physical Exam - Vital Signs Vital Signs: Vital Signs - Last 24 Hrs Temp Pulse Pulse Resp BP Pulse Ox 06/07/17 05:00 97.5 F L 74 20 134/69 93 L 06/06/17 23:39 97.9 F 75 24 131/71 93 L - General General Appearance: Alert, Oriented x3, Cooperative, No acute distress Limitations: No limitations - Head Head exam: Normal inspection - Eye Eye exam: Normal appearance, PERRL, EOMI Pupils: Normal accommodation - ENT ENT exam: Normal exam, Mucous membranes moist, Normal external ear exam, Normal orophraynx Ear exam: Normal external inspection. negative: External canal tenderness Nasal Exam: Normal inspection. negative: Discharge, Sinus tenderness Mouth exam: Normal external inspection, Tongue normal Teeth exam: Normal inspection. negative: Dental caries Throat exam: Normal inspection. negative: Tonsillar erythema, Tonsillar exudate - Neck Neck exam: Normal inspection, Full ROM. negative: Tenderness - Respiratory Respiratory exam: Normal lung sounds bilaterally, Rhonchi (b/l bases). negative : Respiratory distress, Wheezes - Cardiovascular Cardiovascular Exam: Regular rate, Irregular rhythm. negative: Tachycardia - GI/Abdominal GI/Abdominal exam: Soft, Normal bowel sounds. negative: Tenderness - Rectal Rectal exam: Deferred - exam: Deferred - Extremities Extremities exam: Full ROM, Normal capillary refill, Pedal edema, Tenderness - Back Back exam: Reports: Normal inspection, Full ROM. Denies: Muscle spasm, Rash noted, Tenderness - Neurological Neurological exam: Alert, CN II-XII intact, Oriented X3 - Psychiatric Psychiatric exam: Normal affect, Normal mood - Skin Skin exam: Abrasion (left lateral knee- open wound, drainage present, packed, 4cm deep, wounds connect), Dry, Erythema (left lateral knee wound), Intact, Warm Type of lesion: Other (b/l LE stasis dermaitits, bulla b/l). negative: Rash Description of rash: negative: Swelling Results - Labs Result Diagrams: 06/06/17 19:40 06/06/17 19:40 Labs Last 24 Hours: Laboratory Results - last 24 hr 06/07/17 06/07/17 05:00 05:05 CK-MB (CK-2) Cancelled 1.8 Troponin T < 0.010 VTE H&P Assessment - Risk for VTE Risk for VTE: Yes Risk Level: High Risk Assessment Date: 06/07/17 Risk Assessment Time: 10:00 VTE Orders Placed or Will Be Placed: No VTE Reason for No Prophylaxis: Not Indicated (patient with left knee hematoma/ wound) Plan - Inpatient Certification Inpatient Certification: Admit to inpatient care: Based on my medical assessment, after consideration of patient's risk factors (age, co-morbidities and patient presenting symptoms and acuity), I expect that this patient will remain in the hospital greater than or equal to two midnights and that the services needed warrant inpatient care because: Patient Risk Factors: [] Estimated length of stay: [] The patient may reasonably be expected to be discharged or transferred to a hospital within 96 hours after admission to [facility]. Services needed: [] Post hospital care (if known): [] I certify that my determination is in accordance with my understanding of Medicare requirements for reasonable and necessary inpatient services. - Detailed Diagnosis and Plan (1) CHF (congestive heart failure) Current Visit: Yes Status: Acute Qualifiers: Heart failure type: unspecified Heart failure chronicity: acute Qualified Code(s): I50.9 - Heart failure, unspecified Base Code: I50.9 - HEART FAILURE, UNSPECIFIED Comment: 06/07 - DC IV Lasix, 40 mg of PO Lasix w/ potassium supplemenation - ECHO, complete cardiac enzymes, monorail hooker - monitor Is & Os - cardiac, low sodium diet - Outpatient Cardiology follow up with Dr. Fierro (2) Pneumonia Current Visit: Yes Status: Acute Qualifiers: Pneumonia type: due to unspecified organism Laterality: unspecified laterality Lung location: unspecified part of lung Qualified Code(s): J18.9 - Pneumonia, unspecified organism Base Code: J18.9 - PNEUMONIA, UNSPECIFIED ORGANISM Comment: 06/07 - CTA: B/L air space opacities - no sputum productive - normal WBC, afebrile - IV Rocephin changed to Q12H, Continue 500 mg of IV Azithromycin daily - repeat imaging once d/cd (3) Knee contusion Current Visit: No Status: Acute Base Code: S80.00XA - CONTUSION OF UNSPECIFIED KNEE, INITIAL ENCOUNTER Comment: 06/07 - large, open, draining left lateral knee wound. Two separate areas, 4cm in depth which fistulize. - CT of left knee - cultures of open wound obtained - IV Rocephin and Azithromycin on board - daily packing and dressing changes - keep site clean and covered - hold anticoag until wound is more healed (4) DVT prophylaxis Current Visit: Yes Status: Acute Base Code: [id number] - Comment: 06/07 - CHADVASC score >3 noting age, female, likely HF. Patient will need anticoagulation. - patient is high risk. discussed risk vs. beneft with patient and son. will continue full asa noting left knee hematoma. once wound has healed, will re start anticoagulation. Encouraged frequent ambulation. (5) DNR (do not resuscitate) Current Visit: Yes Status: Acute Base Code: Z66 - DO NOT RESUSCITATE Comment: 06/07 - discussed with patient and son. DPOA paper work given. will place order for DNR.
--- NOTE | 2017-06-07 07:34 | CT ANGIOGRAM REPORT ---
EXAM: CTA OF THE CHEST HISTORY: SHORTNESS OF BREATH. TECHNIQUE: CTA of the chest was performed using the pulmonary embolus protocol following IV administration of 90 ml of Omnipaque 350 contrast. Axial images were obtained with coronal and sagittal MIP reconstructions. Comparison: None. FINDINGS: The visualized thyroid gland enhances normally. The mediastinal vasculature enhances normally. There is no intraluminal filling defect to suggest pulmonary embolus. Negative for thoracic aortic aneurysm or dissection. Cardiomegaly. Small bilateral pleural effusions. Multiple nonenlarged as well as enlarged mediastinal lymph nodes. The largest is in the subcarinal region and measures approximately 2.5 x 1.9 cm. Coronary artery calcification. Limited evaluation of the upper abdomen shows motion artifact. The osseous structures are grossly intact. No pneumothorax. The visualized airways are patent. Air space opacities bilaterally with coarse interstitial changes which may reflect interstitial edema and/or pneumonitis. Findings suggestive of minor fibrotic change in each lung base as well. IMPRESSION: 1. NEGATIVE FOR PULMONARY EMBOLUS, THORACIC AORTIC ANEURYSM, OR DISSECTION. 2. CARDIOMEGALY. FINDINGS SUGGESTIVE OF INTERSTITIAL EDEMA AND/OR PNEUMONITIS. SUPERIMPOSED AIR SPACE OPACITIES BILATERALLY. 3. UNDERLYING FIBROTIC CHANGES IN THE LUNG BASES. SMALL BILATERAL PLEURAL EFFUSIONS. JOB [facility]BER: [id number] [facility]
[2017-06-07] MEDS ORDERED: DILTIAZEM 180MG CR CAPSULE PO SCH (10:00)
[2017-06-07] MEDS: METOPROLOL TART 50 MG TABLET PO SCH ×2 (10:20→22:19)
[2017-06-07] MEDS: FUROSEMIDE IV 20MG/2ML VIAL IVP SCH (10:20)
[2017-06-07] MEDS: ASPIRIN 325 MG TAB ENTERIC-COATED PO SCH (10:20)
[2017-06-07] MEDS: CEFTRIAXONE SODIUM 1 GM in 0.9 % SODIUM CHLORIDE 100ML 100 ML IVPB SCH ×2 (11:35→22:14)
[2017-06-07] MEDS: ATORVASTATIN 20 MG TABLET PO SCH (14:16)
[2017-06-07] MEDS: DILTIAZEM 180MG CR CAPSULE PO SCH (14:16)
[2017-06-08 06:33] LABS: HEMATOCRIT 36.9 % (35.0-47.0); HEMOGLOBIN 10.8 gm/dl (11.6-16.0); MEAN CELL VOLUME 88.9 fl (81-97); MEAN CORPUSCULAR HGB CONC 29.3 g/dl (32-36); MEAN PLATELET VOLUME 9.7 fl (7.4-10.4); PLATELET COUNT 211 K/uL (130-400); RED BLOOD COUNT 4.15 M/uL (3.80-5.40); RED CELL DISTRIBUTION WIDTH 19.8 % (11.5-14.5); WHITE BLOOD COUNT W/O DIFF 4.3 K/uL (4.2-12.2)
[2017-06-08 07:14] LABS: BLOOD UREA NITROGEN 15 mg/dL (8-23); C-REACTIVE PROTEIN 5.11 mg/dL (<0.5); CREATININE 0.8 mg/dL (0.5-0.9); EST GLOMERULAR FILTRATION RATE > 60 mL/min; GLUCOSE,RANDOM 83 mg/dL (74-109)
[2017-06-08 07:55] LABS: ERYTHROCYTE SEDIMENTATION RATE 24 mm/hr (0-30)
[2017-06-08] MEDS: METOPROLOL TART 50 MG TABLET PO SCH ×2 (10:34→23:01)
[2017-06-08] MEDS: ASPIRIN 325 MG TAB ENTERIC-COATED PO SCH (10:34)
--- NOTE | 2017-06-08 10:51 | Physician Progress Note ---
Subjective - Date Date of Physician Progress Note: 06/08/17 - Subjective Subjective Comment: patient states she's feeling much better . she was able to get good sleep last night. cough is unchanged. afebrile. tolerating meals. no additional concerns at this time. Objective - Vital Signs Vital Signs: Vital Signs - Last 24 Hrs Temp Pulse Pulse Resp BP BP BP 06/08/17 09:31 20 06/08/17 09:00 91 H 79 20 06/08/17 08:12 98.5 F 79 20 106/50 06/08/17 05:00 98.5 F 75 20 118/66 06/08/17 01:00 60 20 06/07/17 21:00 97.7 F 80 22 122/54 06/07/17 17:00 97.8 F 73 18 107/55 06/07/17 13:00 97.8 F 87 18 104/48 06/07/17 11:25 97.5 F L 115/48 Pulse Ox 06/08/17 09:31 06/08/17 09:00 06/08/17 08:12 95 06/08/17 05:00 96 06/08/17 01:00 96 06/07/17 21:00 97 06/07/17 17:00 99 06/07/17 13:00 95 06/07/17 11:25 - General General Appearance: Alert, Oriented x3, Cooperative, No acute distress Limitations: No limitations - Head Head exam: Normal inspection - Eye Eye exam: Normal appearance, PERRL, EOMI Pupils: Normal accommodation - ENT ENT exam: Normal exam, Mucous membranes moist, Normal external ear exam, Normal orophraynx Ear exam: Normal external inspection. negative: External canal tenderness Nasal Exam: Normal inspection. negative: Discharge, Sinus tenderness Mouth exam: Normal external inspection, Tongue normal Teeth exam: Normal inspection. negative: Dental caries Throat exam: Normal inspection. negative: Tonsillar erythema, Tonsillar exudate - Neck Neck exam: Normal inspection, Full ROM. negative: Tenderness - Respiratory Respiratory exam: Normal lung sounds bilaterally, Rhonchi (b/l bases). negative : Respiratory distress, Wheezes - Cardiovascular Cardiovascular Exam: Regular rate, Irregular rhythm. negative: Tachycardia - GI/Abdominal GI/Abdominal exam: Soft, Normal bowel sounds. negative: Tenderness - Rectal Rectal exam: Deferred - exam: Deferred - Extremities Extremities exam: Full ROM, Normal capillary refill, Pedal edema, Tenderness - Back Back exam: Reports: Normal inspection, Full ROM. Denies: Muscle spasm, Rash noted, Tenderness - Neurological Neurological exam: Alert, CN II-XII intact, Oriented X3 - Psychiatric Psychiatric exam: Normal affect, Normal mood - Skin Skin exam: Abrasion (left lateral knee- open wound, drainage present, packed, 4cm deep, wounds connect), Dry, Erythema (left lateral knee wound), Intact, Warm Type of lesion: Other (b/l LE stasis dermaitits, bulla b/l). negative: Rash Description of rash: negative: Swelling Assessment and Plan - Assessment and Plan (1) CHF (congestive heart failure) Current Visit: Yes Status: Acute Qualifiers: Heart failure type: unspecified Heart failure chronicity: acute Qualified Code(s): I50.9 - Heart failure, unspecified Base Code: I50.9 - HEART FAILURE, UNSPECIFIED Comment: 06/08 - DC IV Lasix, 40 mg of PO Lasix w/ potassium supplemenation - CE negative x 3 - ECHO, manager room - monitor Is & Os, weight (165-> 162) - cardiac, low sodium diet - Outpatient Cardiology follow up with Dr. Fierro (2) Pneumonia Current Visit: Yes Status: Acute Qualifiers: Pneumonia type: due to unspecified organism Laterality: unspecified laterality Lung location: unspecified part of lung Qualified Code(s): J18.9 - Pneumonia, unspecified organism Base Code: J18.9 - PNEUMONIA, UNSPECIFIED ORGANISM Comment: 06/08 - CTA: B/L air space opacities - no sputum production - legionella pending - normal WBC, afebrile - Continue IV Rocephin Q12H. Azithromycin changed to PO 500 mg daily - repeat imaging once d/cd (3) Knee contusion Current Visit: No Status: Acute Base Code: S80.00XA - CONTUSION OF UNSPECIFIED KNEE, INITIAL ENCOUNTER Comment: 06/08 - large, open, draining left lateral knee wound. Two separate areas, 4cm in depth which fistulizes - CT of left knee today - cultures of open wound obtained & pending. - IV Rocephin Q12H and Azithromycin on board - daily packing and dressing changes - keep site clean and covered - hold anticoag until wound is more healed (4) DVT prophylaxis Current Visit: Yes Status: Acute Base Code: [id number] - Comment: 06/08 - CHADVASC score >3 noting age, female, likely HF. Patient will need anticoagulation. - patient is high risk. discussed risk vs. beneft with patient and son. will continue full asa noting left knee hematoma. once wound has healed, will re start anticoagulation. Encouraged frequent ambulation. (5) DNR (do not resuscitate) Current Visit: Yes Status: Acute Base Code: Z66 - DO NOT RESUSCITATE Comment: 06/08 - discussed with patient and son. DPOA paper work given. DNR order placed. Results - Labs Result Diagrams: 06/08/17 06:12 06/08/17 06:12 Labs Last 24 Hours: Laboratory Results - last 24 hr 06/07/17 06/07/17 06/07/17 13:29 13:29 21:00 WBC RBC Hgb Hct MCV MCH MCHC RDW Plt Count MPV Neutrophils % Band Neutrophils % Eosinophils % Basophils % Lymphocytes Monocytes Basophils ESR Eosinophil Count Sodium Potassium Chloride Carbon Dioxide Anion Gap BUN Creatinine Estimated GFR Random Glucose Calcium CK-MB (CK-2) 1.8 Troponin T < 0.010 Cancelled C-Reactive Protein NT-Pro-B Natriuret Pep 06/07/17 06/08/17 06/08/17 21:00 06:12 06:12 WBC 4.3 RBC 4.15 Hgb 10.8 L Hct 36.9 MCV 88.9 MCH 26.0 L MCHC 29.3 L RDW 19.8 H Plt Count 211 MPV 9.7 Neutrophils % 66.0 Band Neutrophils % 0.0 Eosinophils % Not Reportable Basophils % Not Reportable Lymphocytes 17.0 Monocytes 15.0 H Basophils 0.0 ESR 24 Eosinophil Count 2.0 Sodium 140 Potassium 3.3 L Chloride 102 Carbon Dioxide 26.0 Anion Gap 12.0 BUN 15 Creatinine 0.8 Estimated GFR > 60 Random Glucose 83 Calcium 8.2 L CK-MB (CK-2) Cancelled Troponin T C-Reactive Protein 5.11 H NT-Pro-B Natriuret Pep 3297.00 H 06/08/17 06:12 WBC RBC Hgb Hct MCV MCH MCHC RDW Plt Count MPV Neutrophils % Band Neutrophils % Eosinophils % Basophils % Lymphocytes Monocytes Basophils ESR Eosinophil Count Sodium Cancelled Potassium Cancelled Chloride Cancelled Carbon Dioxide Cancelled Anion Gap Cancelled BUN Cancelled Creatinine Cancelled Estimated GFR Cancelled Random Glucose Cancelled Calcium Cancelled CK-MB (CK-2) Troponin T C-Reactive Protein NT-Pro-B Natriuret Pep DVT/PE Assessment - Risk for VTE Risk for VTE: No Risk Level: High Risk Assessment Date: 06/07/17 Risk Assessment Time: 10:00 VTE Orders Placed or Will Be Placed: No VTE Reason for No Prophylaxis: Not Indicated (patient with left knee hematoma/ wound) - Active Medicaitons Current Medications: Current Medications Acetaminophen (Tylenol 500mg Tab) 1,000 mg PO Q6H PRN PRN Reason: PAIN/TEMP Albuterol Sulfate () 2.5 mg INH RESP.Q4H.WA PRN PRN Reason: DIFFICULTY IN BREATHING Aspirin (Ecotrin (Ec)) 325 mg PO DAILY [facility] Last Admin: 06/08/17 10:34 Dose: 325 mg Atorvastatin Calcium (Lipitor) 40 mg PO 1200 [facility] Last Admin: 06/07/17 14:16 Dose: 40 mg Azithromycin (Zithromax) 500 mg PO QHS [facility] Diltiazem HCl (Cardizem Cd) 180 mg PO 1500 [facility] Last Admin: 06/07/17 14:16 Dose: 180 mg Furosemide (Lasix Iv) 20 mg IVP DAILY [facility] Last Admin: 06/07/17 10:20 Dose: Not Given Ceftriaxone Sodium 1 gm/ (Sodium Chloride) 100 mls @ 200 mls/hr IVPB Q12H [facility] Stop: 06/12/17 11:01 Last Infusion: 06/07/17 22:45 Dose: Infused Metoprolol Tartrate (Lopressor) 50 mg PO BID [facility] Last Admin: 06/08/17 10:34 Dose: 50 mg Nitroglycerin (Nitrostat 0.4mg) 0.4 mg SL Q5MIN PRN PRN Reason: CHEST PAIN Temazepam (Restoril) 15 mg PO QHS PRN PRN Reason: INSOMNIA AMI Plan - Labs Result Diagrams: 06/08/17 06:12 06/08/17 06:12
[2017-06-08] MEDS: POTASSIUM CHLORIDE 10 MEQ TAB PO SCH (12:17)
[2017-06-08] MEDS: ATORVASTATIN 20 MG TABLET PO SCH (12:17)
[2017-06-08] MEDS: CEFTRIAXONE SODIUM 1 GM in 0.9 % SODIUM CHLORIDE 100ML 100 ML IVPB SCH ×2 (12:17→23:02)
[2017-06-08] MEDS: FUROSEMIDE IV 20MG/2ML VIAL IVP SCH (13:00)
--- NOTE | 2017-06-08 13:38 | CT SCAN REPORT ---
EXAM: CT OF THE LEFT LOWER EXTREMITY WITH CONTRAST HISTORY: FOLLOW-UP LEFT LOWER EXTREMITY HEMATOMA POST INJURY. OPEN WOUND. TECHNIQUE: Contrast enhanced helical CT examination of the left lower extremity was performed from the level of the distal thigh down to the level of the distal shafts of the tibia and fibula. 90 ml of Omnipaque 300 utilized. Comparison: Radiographic examination of the left knee dated 04/23/17. FINDINGS: There is diffuse osteopenia. No acute fracture, dislocation, nor destructive bone lesion is seen. 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 No lytic or blastic bone lesion. There is mild atherosclerosis involving the distal superficial femoral artery, popliteal artery, and lower leg artery is without evidence of clinically significant stenosis. There is diffuse skin thickening primarily involving the lower leg. There are associated skin nodules of indeterminate etiology. Additionally, there is a walled off cutaneous/subcutaneous fluid collection laterally at the level of the knee. This measures 7 cm in AP x 1.8 cm transverse x 6 cm craniocaudad. This collection does appear to communicate with the skin surface. Diagnostic considerations include abscess versus old hematoma. Mild adjacent subcutaneous fat stranding. No other soft tissue mass is seen. IMPRESSION: 1. DIFFUSE OSTEOPENIA. NO ACUTE OSSEOUS ABNORMALITY. TRICOMPARTMENTAL DEGENERATIVE CHANGES OF THE LEFT KNEE. 2. WALLED OFF CUTANEOUS/SUBCUTANEOUS FLUID COLLECTION IN THE LATERAL SOFT TISSUES AT THE LEVEL OF THE KNEE MEASURING 6-7 CM IN MAXIMUM DIAMETER AND 1.8 CM IN DEPTH. THIS APPEARS TO COMMUNICATE WITH THE SKIN SURFACE AND LIKELY RELATES TO A DRAINING CHRONIC HEMATOMA THOUGH ABSCESS FORMATION CANNOT BE EXCLUDED. 3. DIFFUSE SKIN THICKENING THROUGHOUT THE LOWER LEG. JOB NUMBER: [id number] [facility]
[2017-06-08] MEDS: DILTIAZEM 180MG CR CAPSULE PO SCH (15:25)
--- NOTE | 2017-06-08 16:40 | Physician Progress Note ---
Subjective - Date Date of Physician Progress Note: 06/08/17 - Subjective Subjective Comment: patient had a lot of artifact on cardiac rehabilitation program director around 1300 today. nursing replaced leads and cardiac rehabilitation program director demonstrates atrial fibrillation. Patient is asymptomatic and VSS. She denies cp, sob, walter, heart palpitations or lightheadedness. she has an ECHO ordered for today. she's on metoprolol and cardizem. not anti coagulated noting large left knee wound. Dr. Fierro is her quality assurance coach and will be consulted to see her in the morning. Objective - Vital Signs Vital Signs: Vital Signs - Last 24 Hrs Temp Pulse Pulse Resp BP BP Pulse Ox 06/08/17 13:00 83 18 119/65 94 L 06/08/17 09:31 20 06/08/17 09:00 91 H 79 20 06/08/17 08:12 98.5 F 79 20 106/50 95 06/08/17 05:00 98.5 F 75 20 118/66 96 06/08/17 01:00 60 20 96 06/07/17 21:00 97.7 F 80 22 122/54 97 06/07/17 17:00 97.8 F 73 18 107/55 99 - General General Appearance: Alert, Oriented x3, Cooperative, No acute distress Limitations: No limitations - Head Head exam: Normal inspection - Eye Eye exam: Normal appearance, PERRL, EOMI Pupils: Normal accommodation - ENT ENT exam: Normal exam, Mucous membranes moist, Normal external ear exam, Normal orophraynx Ear exam: Normal external inspection. negative: External canal tenderness Nasal Exam: Normal inspection. negative: Discharge, Sinus tenderness Mouth exam: Normal external inspection, Tongue normal Teeth exam: Normal inspection. negative: Dental caries Throat exam: Normal inspection. negative: Tonsillar erythema, Tonsillar exudate - Neck Neck exam: Normal inspection, Full ROM. negative: Tenderness - Respiratory Respiratory exam: Normal lung sounds bilaterally, Rhonchi (b/l bases). negative : Respiratory distress, Wheezes - Cardiovascular Cardiovascular Exam: Regular rate, Irregular rhythm. negative: Tachycardia - GI/Abdominal GI/Abdominal exam: Soft, Normal bowel sounds. negative: Tenderness - Rectal Rectal exam: Deferred - exam: Deferred - Extremities Extremities exam: Full ROM, Normal capillary refill, Pedal edema, Tenderness - Back Back exam: Reports: Normal inspection, Full ROM. Denies: Muscle spasm, Rash noted, Tenderness - Neurological Neurological exam: Alert, CN II-XII intact, Oriented X3 - Psychiatric Psychiatric exam: Normal affect, Normal mood - Skin Skin exam: Abrasion (left lateral knee- open wound, drainage present, packed, 4cm deep, wounds connect), Dry, Erythema (left lateral knee wound), Intact, Warm Type of lesion: Other (b/l LE stasis dermaitits, bulla b/l). negative: Rash Description of rash: negative: Swelling Assessment and Plan - Assessment and Plan (1) CHF (congestive heart failure) Current Visit: Yes Status: Acute Qualifiers: Heart failure type: unspecified Heart failure chronicity: acute Qualified Code(s): I50.9 - Heart failure, unspecified Base Code: I50.9 - HEART FAILURE, UNSPECIFIED Comment: 06/08 - DC IV Lasix, 40 mg of PO Lasix w/ potassium supplemenation - CE negative x 3 - ECHO, cardiac rehabilitation program director - monitor Is & Os, weight (165-> 162) - cardiac, low sodium diet - Outpatient Cardiology follow up with Dr. Fierro (2) Pneumonia Current Visit: Yes Status: Acute Qualifiers: Pneumonia type: due to unspecified organism Laterality: unspecified laterality Lung location: unspecified part of lung Qualified Code(s): J18.9 - Pneumonia, unspecified organism Base Code: J18.9 - PNEUMONIA, UNSPECIFIED ORGANISM Comment: 06/08 - CTA: B/L air space opacities - no sputum production - legionella pending - normal WBC, afebrile - Continue IV Rocephin Q12H. Azithromycin changed to PO 500 mg daily - repeat imaging once d/cd (3) Knee contusion Current Visit: No Status: Acute Base Code: S80.00XA - CONTUSION OF UNSPECIFIED KNEE, INITIAL ENCOUNTER Comment: 06/08 - large, open, draining left lateral knee wound. Two separate areas, 4cm in depth which fistulizes - CT of left knee today - cultures of open wound obtained & pending. - IV Rocephin Q12H and Azithromycin on board - daily packing and dressing changes - keep site clean and covered - hold anticoag until wound is more healed (4) DVT prophylaxis Current Visit: Yes Status: Acute Base Code: [id number] - Comment: 06/08 - CHADVASC score >3 noting age, female, likely HF. Patient will need anticoagulation. - patient is high risk. discussed risk vs. beneft with patient and son. will continue full asa noting left knee hematoma. once wound has healed, will re start anticoagulation. Encouraged frequent ambulation. (5) DNR (do not resuscitate) Current Visit: Yes Status: Acute Base Code: Z66 - DO NOT RESUSCITATE Comment: 06/08 - discussed with patient and son. DPOA paper work given. DNR order placed. Results - Labs Result Diagrams: 06/08/17 06:12 06/08/17 06:12 Labs Last 24 Hours: Laboratory Results - last 24 hr 06/07/17 06/07/17 06/08/17 21:00 21:00 06:12 WBC 4.3 RBC 4.15 Hgb 10.8 L Hct 36.9 MCV 88.9 MCH 26.0 L MCHC 29.3 L RDW 19.8 H Plt Count 211 MPV 9.7 Neutrophils % 66.0 Band Neutrophils % 0.0 Eosinophils % Not Reportable Basophils % Not Reportable Lymphocytes 17.0 Monocytes 15.0 H Basophils 0.0 ESR 24 Eosinophil Count 2.0 Sodium Potassium Chloride Carbon Dioxide Anion Gap BUN Creatinine Estimated GFR Random Glucose Calcium CK-MB (CK-2) Cancelled Troponin T Cancelled C-Reactive Protein NT-Pro-B Natriuret Pep 06/08/17 06/08/17 06:12 06:12 WBC RBC Hgb Hct MCV MCH MCHC RDW Plt Count MPV Neutrophils % Band Neutrophils % Eosinophils % Basophils % Lymphocytes Monocytes Basophils ESR Eosinophil Count Sodium 140 Cancelled Potassium 3.3 L Cancelled Chloride 102 Cancelled Carbon Dioxide 26.0 Cancelled Anion Gap 12.0 Cancelled BUN 15 Cancelled Creatinine 0.8 Cancelled Estimated GFR > 60 Cancelled Random Glucose 83 Cancelled Calcium 8.2 L Cancelled CK-MB (CK-2) Troponin T C-Reactive Protein 5.11 H NT-Pro-B Natriuret Pep 3297.00 H DVT/PE Assessment - Risk for VTE Risk for VTE: No Risk Level: High Risk Assessment Date: 06/07/17 Risk Assessment Time: 10:00 VTE Orders Placed or Will Be Placed: No VTE Reason for No Prophylaxis: Not Indicated (patient with left knee hematoma/ wound) - Active Medicaitons Current Medications: Current Medications Acetaminophen (Tylenol 500mg Tab) 1,000 mg PO Q6H PRN PRN Reason: PAIN/TEMP Albuterol Sulfate () 2.5 mg INH RESP.Q4H.WA PRN PRN Reason: DIFFICULTY IN BREATHING Aspirin (Ecotrin (Ec)) 325 mg PO DAILY [facility] Last Admin: 06/08/17 10:34 Dose: 325 mg Atorvastatin Calcium (Lipitor) 40 mg PO 1200 [facility] Last Admin: 06/08/17 12:17 Dose: 40 mg Azithromycin (Zithromax) 500 mg PO QHS [facility] Diltiazem HCl (Cardizem Cd) 180 mg PO 1500 [facility] Last Admin: 06/08/17 15:25 Dose: 180 mg Furosemide (Lasix) 20 mg PO DAILY [facility] Ceftriaxone Sodium 1 gm/ (Sodium Chloride) 100 mls @ 200 mls/hr IVPB Q12H [facility] Stop: 06/12/17 11:01 Last Infusion: 06/08/17 13:14 Dose: Infused Metoprolol Tartrate (Lopressor) 50 mg PO BID [facility] Last Admin: 06/08/17 10:34 Dose: 50 mg Nitroglycerin (Nitrostat 0.4mg) 0.4 mg SL Q5MIN PRN PRN Reason: CHEST PAIN Potassium Chloride (Klor-Con) 10 meq PO DAILY [facility] Last Admin: 06/08/17 12:17 Dose: 10 meq Temazepam (Restoril) 15 mg PO QHS PRN PRN Reason: INSOMNIA AMI Plan - Labs Result Diagrams: 06/08/17 06:12 06/08/17 06:12
[2017-06-08] MEDS: AZITHROMYCIN 500 MG TABLET PO SCH (23:01)
[2017-06-09 07:27] LABS: BLOOD UREA NITROGEN 15 mg/dL (8-23); C-REACTIVE PROTEIN 4.07 mg/dL (<0.5); CREATININE 0.8 mg/dL (0.5-0.9); EST GLOMERULAR FILTRATION RATE > 60 mL/min; GLUCOSE,RANDOM 115 mg/dL (74-109)
[2017-06-09] MEDS: ASPIRIN 325 MG TAB ENTERIC-COATED PO SCH (09:09)
[2017-06-09] MEDS: METOPROLOL TART 50 MG TABLET PO SCH ×2 (09:10→21:11)
[2017-06-09] MEDS: POTASSIUM CHLORIDE 10 MEQ TAB PO SCH (09:10)
[2017-06-09] MEDS: FUROSEMIDE 20 MG TABLET PO SCH (09:10)
--- NOTE | 2017-06-09 11:47 | Rehab Evaluation ---
Patient Information - Patient Information Diagnosis: CHF, Pneumonia, SOB, Hypoxia Ordered Treatment: PT Evaluate and Treat Status: Initial Evaluation Surgery: No Past Medical/Surgical Hx: PAST MEDICAL/SURGICAL HISTORY Past Surgical History hyst breast biopsy PMH - Respiratory Hx Respiratory Disorders No Hx Asthma No Hx Bronchitis No Hx Chronic Obstructive No Pulmonary Disease (COPD) Hx Dyspnea No Hx Pneumonia No Hx Pulmonary Embolism No Hx Sleep Apnea No Hx Tuberculosis No Hx of CPAP No PMH - Cardiovascular Hx Cardiovascular Disorders Yes Hx Abnormal EKG No Hx Cardiac Catheterization No Hx Chest Pain No Hx Congestive Heart Failure Yes: patient denies CHF Hx Deep Vein Thrombosis No Hx Edema Yes Hx Heart Attack No Hx Hypertension No Hx Hypotension No Hx Irregular Heartbeat Yes: Atrial fib Hx Palpitations No Hx Pacemaker/Defibrillator No Hx Vascular Disease No Hx Transient Ischemic Attacks No (TIA) Comment: high cholesterol PMH - Neuro Hx Neurological Disorders No Hx Brain Tumor No Hx Cerebrovascular Accident No Hx Dementia No Hx Dizziness No Hx Headaches No Hx Neuropathy No Hx Parkinson's Disease No Hx Seizures No Hx Speech Problem No Hx Syncope No Hx Transient Ischemic Attacks No (TIA) PMH - GI Hx Gastrointestinal Disorders No Hx Abdominal Pain No Hx Celiac Disease No Hx Crohn's Disease No Hx Diverticulitis No Hx Gastrointestinal Bleed No Hx Gastroesophageal Reflux No Hx Hepatitis/Jaundice No Hx Hiatal Hernia No Hx Irritable Bowel No Hx Liver Disease No Hx Nausea/Vomiting No Hx Obstructive Bowel No Hx Pancreatitis No Hx Rectal Bleeding No Hx Ulcer No Hx Weight Loss/Weight Gain No PMH - Hx Genitourinary Disorders No Patient No Hx Bladder Problem No Hx Dialysis No Hx Kidney Stones No Hx Renal Disease No Hx Urinary Tract Infection No PMH - Endocrine Hx Endocrine Disorders Yes Hx Diabetes Yes: diet controlled Hx Thyroid Disease No PMH - Musculoskeletal Hx Musculoskeletal Disorders No Hx Arthritis No Hx Back Injury No Hx Fibromyalgia No Hx Gout No Hx Musculoskeletal Disease No Hx Osteoporosis No PMH - Psych Hx Psychiatric Problems No Hx Anxiety No Hx Behavior Problems No Hx Depression No Hx Emotional Abuse No Hx Sexual Abuse No Hx Suicide Attempt No Major Depressive Episode No Feelings of Hopelessness No PMH - Hematology/Oncology Hx Hematology/Oncology No Disorders Hx Anemia No Hx Blood Disorders No Hx Bruising No Hx Cancer No Hx Clotting Problems No Hx Sickle Cell Disease No Hx Unexplained Bleeding No Hx Blood Transfusion Reaction No Social History: Detail (The patient lives in a basement apartment with her son who lives upstairs. The apartment has no steps to enter as it has an exposed basement. The restroom has a standard toilet seat with grab bars present. The patient does not have the ability to shower in the apartment, but goes to her daughter's or granddaughter's house. She uses a 4WW for ambulation in the home and in the community.) Precautions: Amory, Other (Droplet) - Time With Patient Total Time Spent With Patient (Min): 30 Treatment Procedures: Detail (PT Initial Evaluation) Subjective Information - Subjective Information Per Patient (Said that she has shortness of breath with activity, but has no pain at this time.) Objective Data - Pain Pain Present: No Pain Scale Used: Numeric (1 - 10) - Mental Status Patient Orientation: Oriented x3 - Visual Perception Appears within normal limits for therapeutic activities - ROM Within normal limits (B Knees, Hips, and ankles were WNL) - Strength/Tone Within normal limits (R Hip Flexion 4/5, Hip Adduction/Abduction 4+/5, Knee Flexion/Extension 4/5, Ankle Dorsiflexion/Plantarflexion 4+/5 L Hip Flexion 4/5 , Hip Adduction/Abduction 4+/5, Knee Flexion/Extension 4/5, Ankle Dorsiflexion/ Plantarflexion 4+/5) - Bed Mobility Independent (Supine to sit - Independent, Sit to Supine - Independent, Scooting in Bed - Independent) - Transfers Independent (Sit to Stand - Independent, Stand to Sit - Independent,) - Balance Balance Sitting: Good (No LOB with sitting at EOB) Balance Standing: Good (Was able to stand quietly without use of walker with eyes open and eyes closed and without LOB. She was able to turn in a [place] without LOB.) - Sensation Intact - Gait Detail (The patient was able to ambulate with use of 2WW within her room with supervision only and did not have any LOB.) - Special Tests No Therapy Assessment - Therapy Assessment Detail (The patient had no limitations with ROM in either LE. She had moderate strength deficits in the LEs, and she has complaints of difficulty with lifting her LEs into bed. She had no difficulty with ambulation in the room, but has had prior complaints of SOB with activity. The patient would benefit from further Home Based PT for LE strengthening, transfer training, and gait training.) Problem List - Problem List Physical Therapy Problem List: Detail (1) Decreased strength in B LEs 2) Complaints of SOB with activity 3) Difficulty with transfers due to weight of LEs) Goals - Goals Physical Therapy Goals: 1) Increasing strength in all LE muscle groups to 4+/5 to help the patient lift LEs for bed transfers. 2) The patient will tolerate at least 20 minutes of therapy to increase functional endurance. 3) The patient will be independent with HEP to increase functional strength for transfers and gait activities. Prognosis - Prognosis Good Plan - Plan Physical Therapy Plan: The patient will be seen 1-2x/wk M-F for LE Strengthening , Gait activities, and transfer training.
[2017-06-09] MEDS: ATORVASTATIN 20 MG TABLET PO SCH (12:15)
[2017-06-09] MEDS: CEFTRIAXONE SODIUM 1 GM in 0.9 % SODIUM CHLORIDE 100ML 100 ML IVPB SCH ×2 (12:15→23:03)
--- NOTE | 2017-06-09 12:15 | Rehab Evaluation ---
Patient Information - Patient Information Diagnosis: CHF, Pneumonia, SOB, Hypoxia Ordered Treatment: OT Evaluate and Treat Status: Initial Evaluation Surgery: No Past Medical/Surgical Hx: PAST MEDICAL/SURGICAL HISTORY Past Surgical History hyst breast biopsy PMH - Respiratory Hx Respiratory Disorders No Hx Asthma No Hx Bronchitis No Hx Chronic Obstructive No Pulmonary Disease (COPD) Hx Dyspnea No Hx Pneumonia No Hx Pulmonary Embolism No Hx Sleep Apnea No Hx Tuberculosis No Hx of CPAP No PMH - Cardiovascular Hx Cardiovascular Disorders Yes Hx Abnormal EKG No Hx Cardiac Catheterization No Hx Chest Pain No Hx Congestive Heart Failure Yes: patient denies CHF Hx Deep Vein Thrombosis No Hx Edema Yes Hx Heart Attack No Hx Hypertension No Hx Hypotension No Hx Irregular Heartbeat Yes: Atrial fib Hx Palpitations No Hx Pacemaker/Defibrillator No Hx Vascular Disease No Hx Transient Ischemic Attacks No (TIA) Comment: high cholesterol PMH - Neuro Hx Neurological Disorders No Hx Brain Tumor No Hx Cerebrovascular Accident No Hx Dementia No Hx Dizziness No Hx Headaches No Hx Neuropathy No Hx Parkinson's Disease No Hx Seizures No Hx Speech Problem No Hx Syncope No Hx Transient Ischemic Attacks No (TIA) PMH - GI Hx Gastrointestinal Disorders No Hx Abdominal Pain No Hx Celiac Disease No Hx Crohn's Disease No Hx Diverticulitis No Hx Gastrointestinal Bleed No Hx Gastroesophageal Reflux No Hx Hepatitis/Jaundice No Hx Hiatal Hernia No Hx Irritable Bowel No Hx Liver Disease No Hx Nausea/Vomiting No Hx Obstructive Bowel No Hx Pancreatitis No Hx Rectal Bleeding No Hx Ulcer No Hx Weight Loss/Weight Gain No PMH - Hx Genitourinary Disorders No Patient No Hx Bladder Problem No Hx Dialysis No Hx Kidney Stones No Hx Renal Disease No Hx Urinary Tract Infection No PMH - Endocrine Hx Endocrine Disorders Yes Hx Diabetes Yes: diet controlled Hx Thyroid Disease No PMH - Musculoskeletal Hx Musculoskeletal Disorders No Hx Arthritis No Hx Back Injury No Hx Fibromyalgia No Hx Gout No Hx Musculoskeletal Disease No Hx Osteoporosis No PMH - Psych Hx Psychiatric Problems No Hx Anxiety No Hx Behavior Problems No Hx Depression No Hx Emotional Abuse No Hx Sexual Abuse No Hx Suicide Attempt No Major Depressive Episode No Feelings of Hopelessness No PMH - Hematology/Oncology Hx Hematology/Oncology No Disorders Hx Anemia No Hx Blood Disorders No Hx Bruising No Hx Cancer No Hx Clotting Problems No Hx Sickle Cell Disease No Hx Unexplained Bleeding No Hx Blood Transfusion Reaction No Social History: Detail (The patient lives in a basement apartment with her son who lives upstairs. The apartment has no steps to enter as it has an exposed basement. The restroom has a standard toilet seat with grab bars present. The patient does not have the ability to shower in the apartment, but goes to her daughter's or granddaughter's house. She uses a 4WW for ambulation in the home and in the community.) Precautions: [place], Other (Contact) - Time With Patient Total Time Spent With Patient (Min): 25 Treatment Procedures: Detail (OT eval LOW) Subjective Information - Subjective Information Per Patient (Pt does not use O2 at home but is currently on 2L of O2 while here at the hospital.) Objective Data - Mental Status Patient Orientation: Oriented x3 - Visual Perception Deficit (Pt states that "they" believe she is starting to go blind.) - ROM Not within normal limits (Pt is within normal limits on RUE for shld flex, abd, forearm sup/pron, elbow flex/ext. Pt has more of a mild deficit on the LUE. She shows L shld flex to ~130 deg and abd. Elbow flex/ext and forearm sup/pron WNL on the L side.) - Strength/Tone Not within normal limits (Pt is WNL on the RUE for MMT and is grossly 4+/5 for shld flex/ext, shld abd/add, elbow flex/ext. Pt is weaker on the Left side and is grossly 3+ to 4/5 for shld flex/ext, shld abd/add, elbow flex/ext MMT.) - Coordination Deficit (Pt shows difficulty touching each finger to thumb and believes this is because "she is going blind.") - Bed Mobility Independent - Transfers Independent - Balance Balance Sitting: Good - Sensation Intact - Gait Detail (Pt amb from bed to doorway with no LOB CGA using 2WW. Pt more out of breath post amb and strength testing.) - ADL's/IADL's Detail (Pt states that she can shower independently and was independent with drsg. However, on a "bad" day she would require assistance from son to don/doff socks and shoes. Pt able to doff L sock but unable to reach R sock to doff. 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 Her biggest issue currently is fatigue, shortness of breath, and decreased endurance that may affect safety within her home upon discharge. Feel pt may benefit from a few home therapy treatments to ensure safety within the home and increase pt's endurance to ADLs and mobility.) Problem List - Problem List Physical Therapy Problem List: Detail (1) Decreased strength in B LEs 2) Complaints of SOB with activity 3) Difficulty with transfers due to weight of LEs) Occupational Therapy Problem List: Detail (1. Decreased endurance for ADLs, 2. Weakness of LUE, 3. Decreased ability to amb household distances without shortness of breath.) Goals - Goals Physical Therapy Goals: 1) Increasing strength in all LE muscle groups to 4+/5 to help the patient lift LEs for bed transfers. 2) The patient will tolerate at least 20 minutes of therapy to increase functional endurance. 3) The patient will be independent with HEP to increase functional strength for transfers and gait activities. Occupational Therapy Goals: 1. Pt to be ind w/ ADLs with only occassional help with sock and shoe don. 2. Pt to be grossly 4/5 LUE shld flex/ext and shld abd/ add. 3. Pt to show increased endurance to complete ADLs and amb household distances with minimal SOB. Prognosis - Prognosis Good Plan - Plan Physical Therapy Plan: The patient will be seen 1-2x/wk M-F for LE Strengthening , Gait activities, and transfer training. Occupational Therapy Plan: Pt to be seen by OT 2-4x a week M-F during her stay at [facility]. Recommend a few home therapy visits upon d/c to further increase endurance and safety with ADLs and mobility.
--- NOTE | 2017-06-09 12:37 | Physician Progress Note ---
Subjective - Date Date of Physician Progress Note: 06/09/17 - Subjective Subjective Comment: sitting up in bed with family at bedside. states she's feeling more comfortable than when she came in. ambulation continues to be a problem as she' s very weak. dyspnea with ambulation continues. tolerating meals. + non productive cough. afebrile. Objective - Vital Signs Vital Signs: Vital Signs - Last 24 Hrs Temp Pulse Pulse Resp BP BP Pulse Ox 06/09/17 09:00 97.7 F 66 65 18 124/65 06/09/17 05:00 98.2 F 66 20 117/59 96 06/09/17 01:00 68 20 96 06/08/17 20:38 98.0 F 71 22 127/64 95 06/08/17 17:00 98.0 F 52 L 20 122/59 96 06/08/17 13:00 83 18 119/65 94 L - General General Appearance: Alert, Oriented x3, Cooperative, No acute distress Limitations: No limitations - Head Head exam: Normal inspection - Eye Eye exam: Normal appearance, PERRL, EOMI Pupils: Normal accommodation - ENT ENT exam: Normal exam, Mucous membranes moist, Normal external ear exam, Normal orophraynx Ear exam: Normal external inspection. negative: External canal tenderness Nasal Exam: Normal inspection. negative: Discharge, Sinus tenderness Mouth exam: Normal external inspection, Tongue normal Teeth exam: Normal inspection. negative: Dental caries Throat exam: Normal inspection. negative: Tonsillar erythema, Tonsillar exudate - Neck Neck exam: Normal inspection, Full ROM. negative: Tenderness - Respiratory Respiratory exam: Normal lung sounds bilaterally, Rhonchi (b/l bases). negative : Respiratory distress, Wheezes - Cardiovascular Cardiovascular Exam: Regular rate, Irregular rhythm. negative: Tachycardia - GI/Abdominal GI/Abdominal exam: Soft, Normal bowel sounds. negative: Tenderness - Rectal Rectal exam: Deferred - exam: Deferred - Extremities Extremities exam: Full ROM, Normal capillary refill, Pedal edema, Tenderness - Back Back exam: Reports: Normal inspection, Full ROM. Denies: Muscle spasm, Rash noted, Tenderness - Neurological Neurological exam: Alert, CN II-XII intact, Oriented X3 - Psychiatric Psychiatric exam: Normal affect, Normal mood - Skin Skin exam: Abrasion (left lateral knee- open wound, drainage present, packed, 4cm deep, wounds connect), Dry, Erythema (left lateral knee wound), Intact, Warm Type of lesion: Other (b/l LE stasis dermaitits, bulla b/l). 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 Fierro today. patient ECHO has not been read. - try to encourage patient to have OP nursing/PT/OT noting significant medical history and increased weakness. (2) Pneumonia Current Visit: Yes Status: Acute Qualifiers: Pneumonia type: due to unspecified organism Laterality: unspecified laterality Lung location: unspecified part of lung Qualified Code(s): J18.9 - Pneumonia, unspecified organism Base Code: J18.9 - PNEUMONIA, UNSPECIFIED ORGANISM Comment: 06/09 - CTA: B/L air space opacities - no sputum production - legionella pending - normal WBC, afebrile - Continue IV Rocephin Q12H. Azithromycin changed to PO 500 mg daily - repeat imaging once d/cd (3) Knee contusion Current Visit: No Status: Acute Base Code: S80.00XA - CONTUSION OF UNSPECIFIED KNEE, INITIAL ENCOUNTER Comment: 06/09 - large, open, draining left lateral knee wound. Two separate areas, 4cm in depth which fistulizes - CT of left knee: walled off cutaneous/subcutaneous fluid collection in the lateral soft tissues at the level of the knee measuring 6-7 cm in maximum diameter and 1.8 cm in depth. appears to communicare with the skin surface and likely relates to a draining hematoma though abscess formation cannot be r/o. - cultures of open wound obtained & pending. - IV Rocephin Q12H and Azithromycin on board - daily packing and dressing changes - keep site clean and covered - hold anticoag until wound is more healed (4) DVT prophylaxis Current Visit: Yes Status: Acute Base Code: [id number] - Comment: 06/09 - CHADVASC score >3 noting age, female, likely HF. Patient will need anticoagulation. - patient is high risk. discussed risk vs. beneft with patient and son. will continue full asa noting left knee hematoma. once wound has healed, will re start anticoagulation. Encouraged frequent ambulation as tolerated. (5) DNR (do not resuscitate) Current Visit: Yes Status: Acute Base Code: Z66 - DO NOT RESUSCITATE Comment: 06/09 - discussed with patient and son. DPOA paper work given. DNR order placed. Results - Labs Result Diagrams: 06/08/17 06:12 06/09/17 06:09 Labs Last 24 Hours: Laboratory Results - last 24 hr 06/09/17 06:09 Sodium 137 Potassium 3.5 Chloride 101 Carbon Dioxide 25.0 Anion Gap 11.0 BUN 15 Creatinine 0.8 Estimated GFR > 60 Random Glucose 115 H Calcium 8.0 L C-Reactive Protein 4.07 H NT-Pro-B Natriuret Pep 2891.00 H DVT/PE Assessment - Risk for VTE Risk for VTE: No Risk Level: High Risk Assessment Date: 06/07/17 Risk Assessment Time: 10:00 VTE Orders Placed or Will Be Placed: No VTE Reason for No Prophylaxis: Not Indicated (patient with left knee hematoma/ wound) - Active Medicaitons Current Medications: Current Medications Acetaminophen (Tylenol 500mg Tab) 1,000 mg PO Q6H PRN PRN Reason: PAIN/TEMP Albuterol Sulfate () 2.5 mg INH RESP.Q4H.WA PRN PRN Reason: DIFFICULTY IN BREATHING Aspirin (Ecotrin (Ec)) 325 mg PO DAILY [facility] Last Admin: 06/09/17 09:09 Dose: 325 mg Atorvastatin Calcium (Lipitor) 40 mg PO 1200 [facility] Last Admin: 06/09/17 12:15 Dose: 40 mg Azithromycin (Zithromax) 500 mg PO QHS [facility] Last Admin: 06/08/17 23:01 Dose: 500 mg Diltiazem HCl (Cardizem Cd) 180 mg PO 1500 [facility] Last Admin: 06/08/17 15:25 Dose: 180 mg Furosemide (Lasix) 20 mg PO DAILY [facility] Last Admin: 06/09/17 09:10 Dose: 20 mg Ceftriaxone Sodium 1 gm/ (Sodium Chloride) 100 mls @ 200 mls/hr IVPB Q12H [facility] Stop: 06/12/17 11:01 Last Admin: 06/09/17 12:15 Dose: 200 mls/hr Metoprolol Tartrate (Lopressor) 50 mg PO BID [facility] Last Admin: 06/09/17 09:10 Dose: 50 mg Nitroglycerin (Nitrostat 0.4mg) 0.4 mg SL Q5MIN PRN PRN Reason: CHEST PAIN Potassium Chloride (Klor-Con) 10 meq PO DAILY [facility] Last Admin: 06/09/17 09:10 Dose: 10 meq Temazepam (Restoril) 15 mg PO QHS PRN PRN Reason: INSOMNIA AMI Plan - Labs Result Diagrams: 06/08/17 06:12 06/09/17 06:09
[2017-06-09] MEDS: DILTIAZEM 180MG CR CAPSULE PO SCH (15:10)
[2017-06-09] MEDS: AZITHROMYCIN 500 MG TABLET PO SCH (21:11)
--- NOTE | 2017-06-09 21:26 | Medical Records Consult ---
DATE OF CONSULTATION: 06/09/17 INDICATION: A-FIB. CHF. ANTICOAGULATION HELD BY PRIMARY CARE PHYSICIAN. HISTORY: Inez Carrera is an 81-year-old female who hasn't been seen since 2012 in Cardiology Office. She was admitted with pneumonia and fluid overload. She was also admitted about a month ago for the same issue. Her primary care physician diagnosed her with influenza. She had a fall, it sounds like a mechanical fall. Primary care physician has discontinued the anticoagulation due to a hematoma. She also has not been taking her Lasix as directed. There was some confusion as to whether she should start it or not during her last hospital stay. She never really recovered from her previous hospitalization. She was very weak when she went home and that's when she had the fall. It sounds like she was discharged prematurely, as she stated she could barely get around. She has had an echocardiogram done but, unfortunately, no report is available for review. PAST MEDICAL HISTORY: Known history of carotid artery stenosis. 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 This was back in 2012. She did not want a surgical evaluation and wanted nothing done at that time and, again, she hasn't shown up in our office in over five years. Long- term anticoagulants. Pain and edema. A-fib. CAD. Abnormal EKG. CURRENT MEDICATIONS: Acetaminophen 1000 mg p.o. every six hours Albuterol Sulfate 2.5 mg every four hours w/a p.r.n. Aspirin 325 mg daily Lasix 20 mg IV push Azithromycin 500 mg Sodium Chloride 250 mL at 250 mL per hour IVPB every 24 hours [facility], stop 2340 Ceftriaxone Sodium 1 gm Sodium Chloride 100 mL at 200 mL per hour IVPB every 24 hours [facility] Metoprolol Tartrate 50 mg p.o. b.i.d. Nitroglycerine 0.4 mg sublingual ALLERGIES: NO KNOWN DRUG ALLERGIES. REVIEW OF SYSTEMS: GENERAL: Weakness since last admission over a month ago. HEENT: No headache, vision/hearing changes. NECK: No neck pain. CARDIOVASCULAR: Positive for shortness of breath. No palpitations. No chest pain. PULMONARY: Positive for shortness of breath. No cough, hemoptysis. GI: No nausea, vomiting. No diarrhea. : No dysuria or hematuria. ENDOCRINE: Denies diabetes history. HEME : No unexplained bruising or bleeding with the exception of a hematoma on her left knee since her fall. PHYSICAL EXAMINATION: Vital Signs: Temperature 98.2. Pulse 71. Blood pressure 127/64. Pulse ox 95% one liter nasal cannula. ASSESSMENT/PLAN: 1. SHORTNESS OF BREATH, UNCLEAR ETIOLOGY: May be a combination of pneumonia. Her EF has been normal in the past. If her EF is still normal, she may have a component of diastolic dysfunction, especially with her permanent atrial fibrillation. Would recommend continuing diuresis, close monitoring of electrolytes. Will follow-up on her echocardiogram when it's available for review. I would recommend she at least start her home statin dose of Crestor 10 mg, that apparently she is not getting in the hospital currently. 2. HISTORY OF CAROTID ARTERY DISEASE: Again, in 2012, she had a left subtotal occlusion of her proximal left internal carotid artery. It's likely completely occluded now. We can follow-up on this as an outpatient. She still states she wants nothing done with her carotids. 3. PERMANENT ATRIAL FIBRILLATION, NOT ON ANTICOAGULATION: Restart at the discretion of primary care once hematoma issues resolve. If anticoagulation cannot be continued, I did talk to her and her family about the Watchman Device , where we can ligate the left atrial appendage but at this point she doesn't seem interested that procedure, so I would recommend putting her on anticoagulation once her hematoma issues resolve. She may need to be seen by Orthopedic Surgery or someone else if the hematoma is not improving over time. She will likely still be her on Wednesday and I will stop by and see how she is doing at that time. JOB NUMBER: [id number] MTDD
[2017-06-10] MEDS: ALBUTEROL SULFATE (0.083%) 2.5 MG/3 ML NEB INH PRN ×2 (01:35→06:23)
--- NOTE | 2017-06-10 09:41 | Physician Progress Note ---
Subjective - Date Date of Physician Progress Note: 06/10/17 - Subjective Subjective Comment: The patient is awake, alert and oriented t bedside this morning. She did have some difficulty breathing this morning which appears to have improved after respiratory therapy. Objective - Vital Signs Vital Signs: Vital Signs - Last 24 Hrs Temp Pulse Resp BP BP Pulse Ox 06/10/17 07:59 97.1 F L 61 18 120/67 97 06/10/17 04:00 71 18 105/53 93 L 06/10/17 00:00 55 L 18 109/50 98 06/09/17 20:00 96.7 F L 66 16 129/57 97 - General General Appearance: Alert, Oriented x3, Cooperative, No acute distress Limitations: No limitations - Head Head exam: Normal inspection - Eye Eye exam: Normal appearance, PERRL, EOMI Pupils: Normal accommodation - ENT ENT exam: Normal exam, Mucous membranes moist, Normal external ear exam, Normal orophraynx Ear exam: Normal external inspection. negative: External canal tenderness Nasal Exam: Normal inspection. negative: Discharge, Sinus tenderness Mouth exam: Normal external inspection, Tongue normal Teeth exam: Normal inspection. negative: Dental caries Throat exam: Normal inspection. negative: Tonsillar erythema, Tonsillar exudate - Neck Neck exam: Normal inspection, Full ROM. negative: Tenderness - Respiratory Respiratory exam: Normal lung sounds bilaterally, Rhonchi (b/l bases), Wheezes ( bilateral upper and middle lungs ). negative: Respiratory distress - Cardiovascular Cardiovascular Exam: Regular rate, Irregular rhythm. negative: Tachycardia Peripheral Pulses: 2+: Radial (R), Radial (L), Dorsalis Pedis (R), Dorsalis Pedis (L) - GI/Abdominal GI/Abdominal exam: Soft, Normal bowel sounds. negative: Tenderness - Rectal Rectal exam: Deferred - exam: Deferred - Extremities Extremities exam: Full ROM, Normal capillary refill, Pedal edema, Tenderness - Back Back exam: Reports: Normal inspection, Full ROM. Denies: Muscle spasm, Rash noted, Tenderness - Neurological Neurological exam: Alert, CN II-XII intact, Oriented X3 - Psychiatric Psychiatric exam: Normal affect, Normal mood - Skin Skin exam: Abrasion (left lateral knee- open wound, drainage present, packed, 4cm deep, wounds connect), Dry, Erythema (left lateral knee wound), Intact, Warm Type of lesion: Other (b/l LE stasis dermaitits, bulla b/l). negative: Rash Description of rash: negative: Swelling Assessment and Plan - Assessment and Plan (1) Pneumonia Current Visit: Yes Status: Acute Qualifiers: Pneumonia type: due to unspecified organism Laterality: unspecified laterality Lung location: unspecified part of lung Qualified Code(s): J18.9 - Pneumonia, unspecified organism Base Code: J18.9 - PNEUMONIA, UNSPECIFIED ORGANISM Comment: 06/10/17 - CTA notes air space opacities bilaterally. 06/09 - legionella still pending - normal WBC, afebrile - D/C IV Rocephin Q12H change to Cefdinir 300mg PO Q12H until 06/12/17. Azithromycin changed to PO 500 mg daily d/c tomorrow at 5 days. - CXR on 06/13/17 (2) CHF (congestive heart failure) Current Visit: Yes Status: Acute Qualifiers: Heart failure type: unspecified Heart failure chronicity: acute Qualified Code(s): I50.9 - Heart failure, unspecified Base Code: I50.9 - HEART FAILURE, UNSPECIFIED Comment: 06/10/17 - 40 mg of PO Lasix w/ potassium supplemenation - ECHO report pending, cont library monitor, BNP trended down. - monitor Is & Os, weight daily - cardiac, low sodium diet - Cardiology following and will reassess in the morning once echo is available. The patient has refused interventions in the past. (3) Knee contusion Current Visit: No Status: Acute Base Code: S80.00XA - CONTUSION OF UNSPECIFIED KNEE, INITIAL ENCOUNTER Comment: 06/10/17 - large, open, draining left lateral knee wound. - CT of left knee: walled off cutaneous/subcutaneous fluid collection in the lateral soft tissues at the level of the knee measuring 6-7 cm in maximum diameter and 1.8 cm in depth. - cultures of open wound obtained & pending. - Cefdinir 300mg Q12H and Azithromycin on board - daily cleaning, dressing changes - will continue to hold anticoagulation until wound healed. (4) Chronic atrial fibrillation Current Visit: Yes Status: Acute Base Code: I48.2 - CHRONIC ATRIAL FIBRILLATION Comment: 06/10/17 - pt has chronic a fib, rate controlled on BB and CCB. - cont telemetry, CHADSVAC > 3, not on anticogulation due to possible LLE hematoma. On ASA for now. (5) DVT prophylaxis Current Visit: Yes Status: Acute Base Code: [id number] - Comment: 06/10/17 - CHADVASC score >3 noting age, female, likely HF. - holding anticogaulation due to knee wound/hematoma. - cont ASA daily for now - will re-adress retirement anticoagulation with the patient and family. (6) DNR (do not resuscitate) Current Visit: Yes Status: Acute Base Code: Z66 - DO NOT RESUSCITATE Comment: 06/10/17 - DPOA paper in chart. Pt is DNR - Disposition Disposition: Several things to be resolved. Labs, echo and cardiology review. Likely discharge over the weekend or early next week. Results - Labs Result Diagrams: 06/08/17 06:12 06/09/17 06:09 DVT/PE Assessment - Risk for VTE Risk for VTE: No Risk Level: High Risk Assessment Date: 06/07/17 Risk Assessment Time: 10:00 VTE Orders Placed or Will Be Placed: No VTE Reason for No Prophylaxis: Not Indicated (patient with left knee hematoma/ wound) - Active Medicaitons Current Medications: Current Medications Acetaminophen (Tylenol 500mg Tab) 1,000 mg PO Q6H PRN PRN Reason: PAIN/TEMP Albuterol Sulfate () 2.5 mg INH RESP.Q4H.ND PRN PRN Reason: DIFFICULTY IN BREATHING Last Admin: 06/10/17 06:23 Dose: 2.5 mg Albuterol/Ipratropium (Duoneb) 3 ml INH RESP.Q6H.[facility] Aspirin (Ecotrin (Ec)) 325 mg PO DAILY [facility] Last Admin: 06/09/17 09:09 Dose: 325 mg Atorvastatin Calcium (Lipitor) 40 mg PO 1200 [facility] Last Admin: 06/09/17 12:15 Dose: 40 mg Azithromycin (Zithromax) 500 mg PO QHS [facility] Last Admin: 06/09/17 21:11 Dose: 500 mg Cefdinir (Cefdinir) 300 mg PO Q12H [facility] Stop: 06/13/17 23:59 Diltiazem HCl (Cardizem Cd) 180 mg PO 1500 [facility] Last Admin: 06/09/17 15:10 Dose: 180 mg Furosemide (Lasix) 20 mg PO DAILY [facility] Last Admin: 06/09/17 09:10 Dose: 20 mg Guaifenesin (Mucinex) 1,200 mg PO BID [facility] Metoprolol Tartrate (Lopressor) 50 mg PO BID [facility] Last Admin: 06/09/17 21:11 Dose: 50 mg Nitroglycerin (Nitrostat 0.4mg) 0.4 mg SL Q5MIN PRN PRN Reason: CHEST PAIN Potassium Chloride (Klor-Con) 10 meq PO DAILY [facility] Last Admin: 06/09/17 09:10 Dose: 10 meq Temazepam (Restoril) 15 mg PO QHS PRN PRN Reason: INSOMNIA AMI Plan - Labs Result Diagrams: 06/08/17 06:12 06/09/17 06:09
[2017-06-10] MEDS: FUROSEMIDE 20 MG TABLET PO SCH (10:00)
[2017-06-10] MEDS: METOPROLOL TART 50 MG TABLET PO SCH ×2 (10:00→22:20)
[2017-06-10] MEDS: ASPIRIN 325 MG TAB ENTERIC-COATED PO SCH (10:00)
[2017-06-10] MEDS: POTASSIUM CHLORIDE 10 MEQ TAB PO SCH (10:00)
[2017-06-10] MEDS: CEFDINIR 300 MG CAPSULE PO SCH ×2 (10:00→22:20)
[2017-06-10] MEDS: GUAIFENESIN 1,200 MG TABLET PO SCH ×2 (10:01→22:21)
[2017-06-10] MEDS: IPRATROPIUM/ALBUTEROL (0.5MG/3MG) NEB INH SCH ×3 (11:26→22:33)
[2017-06-10] MEDS: ATORVASTATIN 20 MG TABLET PO SCH (12:13)
--- NOTE | 2017-06-10 14:23 | Inpatient Certification ---
Inpatient Certification Admit to inpatient care: Based on my medical assessment, after consideration of patient's risk factors (age, co-morbidities and patient presenting symptoms and acuity), I expect that this patient will remain in the hospital greater than or equal to two midnights and that the services needed warrant inpatient care because: Patient Risk Factors: Bleeding/Fall/A fib Estimated length of stay: 3 days The patient may reasonably be expected to be discharged or transferred to a hospital within 96 hours after admission to [facility]. Services needed: PT/OT Post hospital care (if known): PT/OT I certify that my determination is in accordance with my understanding of Medicare requirements for reasonable and necessary inpatient services. 06/10/17 14:22
--- NOTE | 2017-06-10 15:16 | Physical Therapy Tx Note ---
Physical Therapy Tx Note - Treatment Note Total Time Spent With Patient: 10 Physical Therapy Tx Note: Detail (Pt in bed upon arrival, family present in room , awake/alert. Nrsg reports that pt is getting up with walker without difficulty, is able to get LE's into bed better. Pt states that she is starting to feel better, despite having IV line changed to another site. Has started oral antibiotics. Will check on pt tomorrow to reassess activity tolerance.) Physical Therapy Problem List: Detail (1) Decreased strength in B LEs 2) Complaints of SOB with activity 3) Difficulty with transfers due to weight of LEs) Physical Therapy Goals: 1) Increasing strength in all LE muscle groups to 4+/5 to help the patient lift LEs for bed transfers. 2) The patient will tolerate at least 20 minutes of therapy to increase functional endurance. 3) The patient will be independent with HEP to increase functional strength for transfers and gait activities. Prognosis: Good Physical Therapy Plan: The patient will be seen 1-2x/wk M-F for LE Strengthening , Gait activities, and transfer training.
[2017-06-10] MEDS: DILTIAZEM 180MG CR CAPSULE PO SCH (15:35)
[2017-06-10] MEDS: AZITHROMYCIN 500 MG TABLET PO SCH (22:20)
[2017-06-11] MEDS: ALBUTEROL SULFATE (0.083%) 2.5 MG/3 ML NEB INH PRN (03:08)
[2017-06-11] MEDS: IPRATROPIUM/ALBUTEROL (0.5MG/3MG) NEB INH SCH ×2 (06:15→13:05)
[2017-06-11 06:53] LABS: BASO % 0.2 % (0-6); EOS % 3.6 % (0-6); GRAN % 76.2 % (47-80); HEMOGLOBIN 9.4 gm/dl (11.6-16.0); LYMPH % 10.7 % (16-45); MEAN CELL VOLUME 90.4 fl (81-97); MEAN CORPUSCULAR HGB CONC 28.5 g/dl (32-36); MEAN PLATELET VOLUME 9.5 fl (7.4-10.4); MONO % 9.3 % (0-9); PLATELET COUNT 200 K/uL (130-400); RED BLOOD COUNT 3.65 M/uL (3.80-5.40); RED CELL DISTRIBUTION WIDTH 19.4 % (11.5-14.5)
[2017-06-11 07:02] LABS: MEAN CORPUSCULAR HEMOGLOBIN 25.7 pg (27-33)
[2017-06-11 07:53] LABS: BLOOD UREA NITROGEN 13 mg/dL (8-23); CREATININE 0.8 mg/dL (0.5-0.9); EST GLOMERULAR FILTRATION RATE > 60 mL/min; GLUCOSE,RANDOM 138 mg/dL (74-109)
--- NOTE | 2017-06-11 08:37 | Discharge Summary ---
Providers Discharge Summary Date: 06/11/17 Date of admission: 06/06/17 23:29 Attending physician: SONIA BISHOP Primary care physician: JENNY CACERES D.O. 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 rf design engineer?: TCI Physical Exam - Vital Signs Vital Signs: Vital Signs - Last 24 Hrs Temp Pulse Pulse Pulse Resp BP BP 06/11/17 07:31 97.1 F L 79 20 06/11/17 06:15 70 20 06/11/17 04:00 97.5 F L 75 16 115/63 06/11/17 03:08 64 20 06/11/17 00:00 98.7 F 75 18 108/63 06/10/17 22:33 71 18 06/10/17 21:00 71 69 17 06/10/17 19:53 97.7 F 69 17 115/59 06/10/17 17:17 61 17 06/10/17 17:16 65 17 06/10/17 16:00 97.1 F L 73 16 108/61 06/10/17 11:30 63 15 06/10/17 11:22 97.1 F L 62 16 105/61 06/10/17 10:22 97.1 F L 120/67 06/10/17 09:00 66 62 15 BP Pulse Ox 06/11/17 07:31 135/69 92 L 06/11/17 06:15 91 L 06/11/17 04:00 94 L 06/11/17 03:08 90 L 06/11/17 00:00 92 L 06/10/17 22:33 97 06/10/17 21:00 06/10/17 19:53 92 L 06/10/17 17:17 95 06/10/17 17:16 97 06/10/17 16:00 92 L 06/10/17 11:30 97 06/10/17 11:22 95 06/10/17 10:22 06/10/17 09:00 - General General Appearance: Alert, Oriented x3, Cooperative, No acute distress Limitations: No limitations - Head Head exam: Normal inspection - Eye Eye exam: Normal appearance, PERRL, EOMI Pupils: Normal accommodation - ENT ENT exam: Normal exam, Mucous membranes moist, Normal external ear exam, Normal orophraynx Ear exam: Normal external inspection. negative: External canal tenderness Nasal Exam: Normal inspection. negative: Discharge, Sinus tenderness Mouth exam: Normal external inspection, Tongue normal Teeth exam: Normal inspection. negative: Dental caries Throat exam: Normal inspection. negative: Tonsillar erythema, Tonsillar exudate - Neck Neck exam: Normal inspection, Full ROM. negative: Tenderness - Respiratory Respiratory exam: Normal lung sounds bilaterally, Rhonchi (b/l bases), Wheezes ( bilateral upper and middle lungs ). negative: Respiratory distress - Cardiovascular Cardiovascular Exam: Regular rate, Irregular rhythm. negative: Tachycardia Peripheral Pulses: 2+: Radial (R), Radial (L), Dorsalis Pedis (R), Dorsalis Pedis (L) - GI/Abdominal GI/Abdominal exam: Soft, Normal bowel sounds. negative: Tenderness - Rectal Rectal exam: Deferred - exam: Deferred - Extremities Extremities exam: Full ROM, Normal capillary refill, Pedal edema, Tenderness - Back Back exam: Reports: Normal inspection, Full ROM. Denies: Muscle spasm, Rash noted, Tenderness - Neurological Neurological exam: Alert, CN II-XII intact, Oriented X3 - Psychiatric Psychiatric exam: Normal affect, Normal mood - Skin Skin exam: Abrasion (left lateral knee- open wound, drainage present, packed, 4cm deep, wounds connect), Dry, Erythema (left lateral knee wound), Intact, Warm Type of lesion: Other (b/l LE stasis dermaitits, bulla b/l). negative: Rash Description of rash: negative: Swelling Hospitalization - Hospitalization Admission Diagnosis: chf, pneumonia, sob, hypoxia - Problem List/Discharge Diagnosis (1) Pneumonia Current Visit: Yes Status: Acute Discharge Diagnosis: Pneumonia type: due to unspecified organism Laterality: unspecified laterality Lung location: unspecified part of lung Qualified Code(s): J18.9 - Pneumonia, unspecified organism Base Code: J18.9 - PNEUMONIA, UNSPECIFIED ORGANISM Comment: 06/10/17 - CTA notes air space opacities bilaterally. 06/09 - legionella still pending - normal WBC, afebrile - D/C IV Rocephin Q12H change to Cefdinir 300mg PO Q12H until 06/12/17. Azithromycin changed to PO 500 mg daily d/c tomorrow at 5 days. - CXR on 06/13/17 (2) CHF (congestive heart failure) Current Visit: Yes Status: Acute Discharge Diagnosis: Heart failure type: unspecified Heart failure chronicity: acute Qualified Code(s): I50.9 - Heart failure, unspecified Base Code: I50.9 - HEART FAILURE, UNSPECIFIED Comment: 06/11/17 - 40 mg of PO Lasix w/ potassium supplemenation - ECHO report pending, cont monitoring manager, BNP trended down. - monitor Is & Os, weight daily - cardiac, low sodium diet - Cardiology following and will reassess in the morning once echo is available. The patient has refused interventions in the past. (3) Knee contusion Current Visit: No Status: Acute Base Code: S80.00XA - CONTUSION OF UNSPECIFIED KNEE, INITIAL ENCOUNTER Comment: 06/11/17 - large, open, draining left lateral knee wound. - CT of left knee: walled off cutaneous/subcutaneous fluid collection in the lateral soft tissues at the level of the knee measuring 6-7 cm in maximum diameter and 1.8 cm in depth. - cultures of open wound obtained & pending. - Cefdinir 300mg Q12H and Azithromycin on board - weekly cleaning, dressing changes. Home wound care planned. - will continue to hold anticoagulation until wound healed. (4) Chronic atrial fibrillation Current Visit: Yes Status: Acute Base Code: I48.2 - CHRONIC ATRIAL FIBRILLATION Comment: 06/11/17 - pt has chronic a fib, rate controlled on BB and CCB. - cont telemetry, CHADSVAC > 3, not on anticogulation due to possible LLE hematoma. On ASA for now. (5) DVT prophylaxis Current Visit: Yes Status: Acute Base Code: [id number] - Comment: 06/11/17 - CHADVASC score >3 noting age, female, likely HF. - holding anticogaulation due to knee wound/hematoma. - cont ASA daily for now - will re-adress extermination supervisor anticoagulation with the patient and family. (6) DNR (do not resuscitate) Current Visit: Yes Status: Acute Base Code: Z66 - DO NOT RESUSCITATE Comment: 06/11/17 - DPOA signed but needs to be brought in for records. Pt is DNR (7) Pulmonary hypertension Current Visit: Yes Status: Acute Base Code: I27.20 - PULMONARY HYPERTENSION , UNSPECIFIED Comment: 06/11/17 - 2D echo shows preserved EF @ 65% but severe pulmonary HTN with RVSP 71mmHg. - WHO classification: 2 - patient reluctant to have any intervention for her cardiac disease. - Disposition Several things to be resolved. Labs, echo and cardiology review. Likely discharge over the weekend or early next week. - Hospitalization Course Hospital Course: 81 yo female admitted w/ PNA and fluid overload. Patient presented to our ED after 3-4 days of worsening weakness, shortness of breath and decreased appetite. States she was admitted to Dr. Bain about four weeks ago with influenza. Since patient's previous hospitalization, she's been off her anticoagulation and diuretic therapy. Patient's anticoagulation was stopped due to hematoma of lateral left knee. Prior to her last admission, patient had fallen and hit her left knee. This area has not completely healed and she has continues to have drainage from site. While in the ED, VS's relatively stable aside from O2 of 86% on RA and RR of 26. Blood work obtained and demonstrated normal H/H, glucose 148, d-dimer 0.80 , BNP 7861, trop 0.014, 0.010, CKMB 1.8, EKG: a flutter, and CTA: negative for PE, aneurysm, CMG, interstitial edema, pneumonitis, air space opacities b/l , fibrotic changes of the lung and small B/L pleural effusions. Patient was started on 1 gm of IV Rocephin Q24H, 500 mg of IV Azithromycin daily, 40 mg of IV Lasix, monitoring manager and 2L's of supplemental O2. Patient admitted to the floor for further medical management. 06/07- This morning, patient is lying comfortably in bed with her son at bedside. States she wants to get out of here and go home. She was up all night urination as she received 40 mg of IV Lasix in the ED prior to admission. She admits to frequent urination, weakness, LLE pain where she injured it 4 weeks ago, SOB, cough (non productive), and decreased appetite. She denies CP, heart palpitations, abd pain, n/v, dysuria, hematuria, fever, chills, headache, lightheadedness or dizziness. Patient denies history of CHF. states she has not been taking her Lasix or potassium over the past 4 weeks. She's also been without her anticoagulation since her previous admission. According to In[facility], she saw Dr. Caceres a few weeks ago and he placed her on an antibiotic cream for her left knee wound. No cultures of area have been obtained. She was placed on a regular aspirin and coumadin held. She denies h/o MRSA. She's a patient of Dr. Fierro, though hasn't seen him in 2 years. She denies any additional concerns at this time. 06/10 - The patient is alert and oriented x 3. She is sitting at bedside without new complaint. Labs have come back with one culture reading positive for ana and enterrocococcus of leg wound which are likely contantaminants. The patient has no white count and remains afebrile. She still requires oxygen supplementation and will likely qualify for continuous home O2. Echo has been reviewed and shows preserved cardiac function with EF 65%, however there is severe pulmonary hypertension noted. 06/11 - On morning rounds the patient is awake, and appears to be comfortable w/o any respiratory distress. The patient is to be discharged today with follow up with her primary care doctor (Dr. Caceres.) She is still keen on not having any further workup or intervention regarding her heart or carotid artery. Procedures: Imaging and X-Rays 06/08/17 09:00 LOWER EXTREMITY W CONTRAST [CT] Stat 06/13/17 11:00 CHEST 2 VIEWS [RAD] ONCE Cardiology Procedures 06/07/17 12:02 Echocardiogram 2D - Limited ONCE Abnormal Labs: Abnormal Lab Results 06/08/17 06/08/17 06/09/17 Range/Units 06:12 06:12 06:09 RBC (3.80-5.40) M/uL Hgb 10.8 L (11.6-16.0) gm/dl Hct (35.0-47.0) % MCH 26.0 L (27-33) pg MCHC 29.3 L (32-36) g/dl RDW 19.8 H (11.5-14.5) % Lymphocytes % (16-45) % Monocytes % (0-9) % Monocytes 15.0 H (0-9) % Sodium (136-145) mmol/L Potassium 3.3 L (3.4-4.5) mmol/L Random Glucose 115 H (74-109) mg/dL Calcium 8.2 L 8.0 L (8.8-10.2) mg/dL C-Reactive Protein 5.11 H 4.07 H (<0.5) mg/dL NT-Pro-B Natriuret Pep 3297.00 H 2891.00 H (<450) pg/mL 06/11/17 06/11/17 Range/Units 06:09 06:09 RBC 3.65 L (3.80-5.40) M/uL Hgb 9.4 L (11.6-16.0) gm/dl Hct 33.0 L (35.0-47.0) % MCH 25.7 L (27-33) pg MCHC 28.5 L (32-36) g/dl RDW 19.4 H (11.5-14.5) % Lymphocytes % 10.7 L (16-45) % Monocytes % 9.3 H (0-9) % Monocytes (0-9) % Sodium 135 L (136-145) mmol/L Potassium (3.4-4.5) mmol/L Random Glucose 138 H (74-109) mg/dL Calcium 8.2 L (8.8-10.2) mg/dL C-Reactive Protein (<0.5) mg/dL NT-Pro-B Natriuret Pep (<450) pg/mL Condition at Discharge: (2) Stable Discharge Medications - Discharge Medications Prescriptions: Azithromycin [Zithromax] 500 mg PO QHS 2 Days #2 tab Cefdinir 300 mg PO Q12H 2 Days #4 capsule Home Medications: Ambulatory Orders Albuterol Sulfate [Proair Hfa] 2 puff IH QID PRN #1 inhaler 04/22/17 [Last Taken 1 Day Ago ~04/22/17] Diltiazem HCl [Diltiazem 24Hr ER] 180 mg PO DAILY 04/22/17 [Last Taken 04/22/17] Rosuvastatin Calcium 10 mg PO DAILY 04/22/17 [Last Taken 04/22/17] Metoprolol Tartrate [Lopressor] 50 mg PO BID 04/23/17 [Last Taken 1 Day Ago ~02/27] Albuterol Sulfate [Ventolin Hfa] 2 puff INH RESP.Q4H.NC #1 inhaler 04/25/17 [ Last Taken Unknown] Aspirin 81 mg PO DAILY 06/06/17 [Last Taken Unknown] Azithromycin [Zithromax] 500 mg PO QHS 2 Days #2 tab 06/11/17 [Last Taken Unknown] Cefdinir 300 mg PO Q12H 2 Days #4 capsule 06/11/17 [Last Taken Unknown] Discharge Plan - Discharge Instructions Activity at Discharge: Wear Oxygen At All Times Diet at Discharge: Low Fat, Low Cholesterol, Low Salt Diet Wound Primary Dressing Type: Adhesive Dressing Additional Instructions: Appointments have been scheduled for you as follows: , June 17, 2:00PM with Dr. Caceres. Follow up with Dr. Fierro regarding intervention for carotid stenosis and HF. Abx for another 3 days, Home wound care to follow Continuous home oxygen at 2 liters Quality Measures - Quality Measures Quality Measures: Atrial Fibrillation & Atrial Flutter: Chronic Anticoagulation Therapy, Advance Directives, Documentation of Current Medications in Medical Record, Elder Maltreatment Screen and Follow-Up Plan, Heart Failure, Screening for High Blood Pressure and F/U Documented - Current Medications Quality Measure: Measure #130: Documentation of Current Medications Documentation of Current Medications: <Current Medications Documented/Reviewed> [G8427] - Blood Pressure Screening Quality Measure: Screening for High Blood Pressure and Follow-Up Documented Does Patient Have Any of the Following: Active Dx of HTN Blood Pressure Classification: Pre-Hypertensive BP Reading Systolic Measurement: 120 Diastolic Measurement: 67 Screening for High Blood Pressure: Patient Exclusion, Hx of HTN [G9744] - Atrial Fibrillation and Atrial Flutter Quality Measure: Atrial Fibrillation & Atrial Flutter: Chronic Anticoagulation Therapy Does Patient Have Any of the Following: No CHADS2 Risk Stratification: Age 75 or Greater, Diabetes Mellitus, Heart Failure or Impaired LVSF Risk Stratification Summary: One or more high risk factors OR more than one moderate risk factor exists. [G8972] Anticoagulation Therapy: Not Prescribed for Medical Reason [G8968] Medical Reason for NOT Prescribing Anticoagulant: Risk of Bleeding - Heart Failure (MAGGIE/ARB Therapy) Quality Measure: Heart Failure Left Ventricular Systolic Function: Unknown MAGGIE Inhibitor or ARB Therapy for LVSD: Not Eligible - Heart Failure (Beta-rani Therapy) Quality Measure: Heart Failure Left Ventricular Systolic Function: Unknown Beta-Rani Therapy for LVEF < 40%: Not Eligible - Advance Directives Quality Measure: Measure #47: Care Plan Advance Directives Established: No Advance Directives Information Provided To Patient: No Advance Directives on File: No Living Will: No Power of Grading Clerk: No Advance Care Planning: <Care Plan/Decision Maker Documented; Discussed & Documented> [[id number]] - Elder Abuse Suspicion Index Screening: Elder Abuse Suspicion Index Screening Rely on people for bathing, dressing, shopping, banking, etc: Yes Prevented from getting food, clothes, medication, etc: No Made to feel shamed or threatened by someone: No Forced to sign papers or use money against will: No Feel afraid, touched in ways not wanted or hurt physically: No Poor eye contact, withdrawn, malnourished, cuts or bruises: No Screening Result: Negative result EASI Reference Information: Aleksey MARCUM, Kevin C, Shara D, Coral Varner.Development and validation of a tool to assist physicians identification of elder abuse: The Elder Abuse Suspicion Index (EASI ). Journal of Elder Abuse and Neglect, 2008; 20 (3): 276-300. - Elder Maltreatment Screen Quality Measures: Elder Maltreatment Screen and Follow-Up Plan Elder Maltreatment Screen: <Negative, No Follow-Up Plan Required> [[id number]]
[2017-06-11] MEDS: GUAIFENESIN 1,200 MG TABLET PO SCH (09:18)
[2017-06-11] MEDS: ASPIRIN 325 MG TAB ENTERIC-COATED PO SCH (09:18)
[2017-06-11] MEDS: POTASSIUM CHLORIDE 10 MEQ TAB PO SCH (09:18)
[2017-06-11] MEDS: FUROSEMIDE 20 MG TABLET PO SCH (09:18)
[2017-06-11] MEDS: CEFDINIR 300 MG CAPSULE PO SCH (09:19)
[2017-06-11] MEDS: METOPROLOL TART 50 MG TABLET PO SCH (09:19)
== END 2017-06-11 13:00 | disposition home or self-care (01) | DRG 195 ==
LOC: ER 19:26 → MEDSURG 23:29
PROVIDERS: ADMIT Internal Medicine; ATTEND Internal Medicine
DX: J18.9 Pneumonia, unspecified organism (principal); I50.9 Heart failure, unspecified; R05 Cough; R11.0 Nausea; R53.1 Weakness; M79.669 Pain in unspecified lower leg; I48.91 Unspecified atrial fibrillation; R09.02 Hypoxemia; I48.2 Chronic atrial fibrillation; I10 Essential (primary) hypertension; E11.9 Type 2 diabetes mellitus without complications; Z79.01 Long term (current) use of anticoagulants; S81.002A Unspecified open wound, left knee, initial encounter; I27.20 Pulmonary hypertension, unspecified; E78.00 Pure hypercholesterolemia, unspecified; I65.29 Occlusion and stenosis of unspecified carotid artery; Z66 Do not resuscitate
CPT/HCPCS: 99285 ×2; 96374; 96375; 85025; 80053; 84484; 85379; 83880; 71275; 93005; 93010; Q9967; 80048; 82553; 85027; 85651; 86140; 87070; 90670; 93306; 94620; 94640; 94760; 94761; 97165; 99223; 99233; 99239; J0456; J1940; J7050; J7613

== ENCOUNTER 2019-04-14 21:04 | Inpatient (IN) | payer MEDICARE, BC ==
--- NOTE | 2019-04-14 21:24 | Emergency Department Record ---
History of Present Illness - General Chief complaint: Fatigue and Weakness Stated complaint: WEAKNESS Time Seen by Provider: 04/14/19 21:19 Source: Patient, Family (Son and daughter ) Mode of Arrival: EMS Limitations: No limitations - History of Present Illness Initial comments: Pt from home by EMS for weakness. Pt states she lives in the basement of her sons home and does her own personal care. She is provided with meals by family but otherwise is independent. She is normally ambulatory with the aid of a walker. Tonight at home she attempted to stand from her chair and was unable to stand and "slid to the floor". Pt relates sliding down from the chair to the floor and denies falling or injury. No head or neck injury. She called for her son and attempted to stand again and was unable. She denies CP, JOB, fever, chills, N/V/D. She has had a cough per her son for 2-4 weeks, worse over the past few days. Her daughter relates similar with "allergies". No recent change in meds. No difficulty with speech, vision, or movement of extremities. "I just feel weak allover". Hx of A fib on meds and anticoag with baby ASA. Onset/Timin -: Days(s) Location: Generalized Severity: Moderate Improves with: None Worsens with: None Associated Symptoms: Shortness of breath - [place] Coma Scale Eye Response: (4) Open spontaneously Motor Response: (6) Obeys commands Verbal Response: (5) Oriented Beata Total: 15 - Related Data Home Medications Medication Instructions Recorded Confirmed Last Taken Furosemide [Lasix] 40 mg PO DAILY 04/14/19 04/14/19 Unknown Potassium Chloride 1 packet PO DAILY 04/14/19 04/14/19 Unknown Previous Rx's Medication Instructions Recorded Albuterol Sulfate [Proair Hfa] 2 puff IH QID PRN #1 inhaler 04/22/17 Albuterol Sulfate [Ventolin Hfa] 2 puff INH RESP.[id number].WA #1 inhaler 04/25/17 Allergies Allergy/AdvReac Type Severity Reaction Status Date / Time No Known Drug Allergies Allergy Verified 04/14/19 21:25 Travel Screening - Travel/Exposure Within Last 30 Days Have you traveled within the last 30 days?: No - Travel/Exposure Within Last Year Have you traveled outside the [place] in the last year?: No - Additonal Travel Details Have you been exposed to anyone with a communicable illness?: No - Travel Symptoms Symptom Screening: None Review of Systems Constitutional: Reports: As per HPI, Weakness. Denies: Chills, Fever Eyes: Denies: Eye discharge, Eye pain, Vision change ENT: Denies: Congestion, Ear pain, Throat pain Respiratory: Reports: As per HPI, Cough. Denies: Hemoptysis, Stridor, Wheezes Cardiovascular: Denies: Arrhythmia, Chest pain, Palpitations, Syncope Endocrine: Reports: As per HPI, Fatigue Gastrointestinal: Denies: Abdominal pain, Diarrhea, Nausea, Vomiting Genitourinary: Denies: Dysuria Musculoskeletal: Denies: Back pain Skin: Denies: Rash Neurological: Reports: As per HPI, Weakness. Denies: Headache, Tingling, Tremors Psychiatric: Denies: Anxiety, Suicidal thoughts Hematological/Lymphatic: Denies: Anemia Past Medical History - SOCIAL HISTORY Smoking Status: Never smoker Alcohol Use: None Drug Use: None - RESPIRATORY Hx Respiratory Disorders: Yes Hx Asthma: No Hx Bronchitis: No Hx COPD: Yes Hx Dyspnea: No Hx Pneumonia: Yes Hx Pulmonary Embolism: No Hx Sleep Apnea: No Hx Tuberculosis: No Hx of CPAP: No - CARDIOVASCULAR Hx Cardio Disorders: Yes Hx Abnormal EKG: No Hx Cardiac Cath: No Hx Chest Pain: No Hx CHF: Yes (patient denies CHF) Hx Deep Vein Thrombosis: No Hx Edema: Yes Hx Heart Attack: No Hx Hypertension: No Hx Hypotension: No Hx Irregular Heartbeat: Yes (Atrial fib) Hx Palpitations: No Hx Pacemaker/Defib: No Hx Vascular Disease: No Comment:: high cholesterol - NEURO Hx Neuro Disorders: No Hx Brain Tumor: No Hx CVA: No Hx Dementia: No Hx Dizziness: No Hx Headaches: No Hx Neuropathy: No Hx Parkinson's Disease: No Hx Seizures: No Hx Speech Problem: No Hx TIA: No - GI Hx GI Disorders: No Hx Abdominal Pain: No Hx Celiac Disease: No Hx Crohn's Disease: No Hx Diverticulitis: No Hx GI Bleed: No Hx Reflux: No Hx Hepatitis/Jaundice: No Hx Hiatal Hernia: No Hx Irritable Bowel: No Hx Liver Disease: No Hx Nausea/Vomiting: No Hx Obstructive Bowel: No Hx Pancreatitis: No Hx Rectal Bleeding: No Hx Ulcer: No Hx Wt Loss/Wt Gain: No Hx of Polyps: No - Hx Genitourinary Disorders: No Hx Bladder Problem: No Hx Dialysis: No Hx Kidney Stones: No Hx Renal Disease: No Hx UTI: No - ENDOCRINE Hx Endocrine Disorders: Yes Hx Diabetes: Yes (diet controlled) Hx Thyroid Disease: No - MUSCULOSKELETAL Hx Musculoskeletal Disorders: No Hx Arthritis: No Hx Back Injury: No Hx Fibromyalgia: No Hx Gout: No Hx Musculoskeletal Disease: No Hx Osteoporosis: No - PSYCH Hx Psych Problems: No Hx Anxiety: No Hx Behavior Problems: No Hx Depression: No Hx Emotional Abuse: No Hx Sexual Abuse: No Hx Suicide Attempt: No - HEMATOLOGY/ONCOLOGY Hx Hematology/Oncology Disorders: No Hx Anemia: No Hx Blood Disorders: No Hx Bruising: No Hx Cancer: No Hx Clotting Problems: No Hx Sickle Cell Disease: No Hx Unexplained Bleeding: No Hx Blood Transfusions: No Hx Blood Transfusion Reaction: No Family Medical History Any Significant Family History?: No Hx Diabetes: Mother Hx Heart Disease: Father *Heart Comment: afib Hx Resp Disorders: Grandparents *Resp Comment: TB Physical Exam - General General Appearance: Alert, Oriented x3, Cooperative, No acute distress (Pt is with poor personal care. Daughter states she does not shower but uses a cloth to clean up. ) - Head Head exam: Atraumatic, Normocephalic Head exam detail: negative: Abrasion, Contusion, General tenderness, Hematoma - Eye Eye exam: Normal appearance, PERRL, EOMI - ENT ENT exam: Mucous membranes dry, Normal external ear exam, TM's normal bilaterally Nasal Exam: Normal inspection Mouth exam: Normal external inspection - Neck Neck exam: Normal inspection, Full ROM. negative: Lymphadenopathy, Tenderness - Respiratory Respiratory exam: Normal lung sounds bilaterally. negative: Respiratory distress, Rhonchi, Wheezes - Cardiovascular Cardiovascular Exam: Irregular rhythm. negative: Diastolic murmur, Tachycardia Peripheral Pulses: 2+: Radial (R), Radial (L) - GI/Abdominal GI/Abdominal exam: Soft, Normal bowel sounds. negative: Guarding, Rebound, Tenderness - Extremities Extremities exam: Pedal edema. negative: Tenderness - Back Back exam: Denies: Paraspinal tenderness - Neurological Neurological exam: Alert, Oriented X3 (Pt has motor tone 4/5 bilateral UE and LE. No gross deficits. Will attempt to stand and walk after eval. ) - Psychiatric Psychiatric exam: Normal affect, Normal mood - Skin Skin exam: Other (Pt with thick dry scaled skin to legs without weeping or erythema. Nail fo feet are thick and long, no evidence of infection to feet/toe s. ) Course Vital Signs 04/14/19 21:07 Temperature 97.9 F Pulse Rate 61 Respiratory 26 H Rate Blood Pressure 153/74 Pulse Ox 97 - Reevaluation(s) Reevaluation #1: 04/14/19 21:34 Seen on arrival with EMS. General weakness without liberalizing symptoms. Speech clear. No CP or JOB, vital stable. EKG unchanged and without ST elevations. Family in department and interviewed alone prior to in room, then escorted in to see patient. CT, CXR, labs ordered. After work up with CT we will attempt to have her stand and walk with walker. Family at bedside (son and daughter) 04/14/19 23:00 Pt labs and studies reviewed with pt and family. DNR papers done. Plan is for admission. Procedures - EKG Initial Date: 04/14/19 Time: 21:23 EKG: No Acute Changes (Comp with 06/06/17) Medical Decision Making - Lab Data Result diagrams: 04/14/19 21:34 04/14/19 21:34 Disposition Disposition: Admit Clinical Impression: Weakness generalized, Gait instability, DNR (do not resuscitate) Disposition: Still a Patient at [facility] Decision to Admit: Admit from ER Decision to Admit Date: 04/14/19 Decision to Admit Time: 22:50 Accepting Physician: Casi Time Discussed w/Accepting Physician: 22:50 (Rosita Mittal NP) Condition: (3) Guarded Forms: Patient Portal Access Time of Disposition: 22:51 Quality - Quality Measures Quality Measures: N/A - Blood Pressure Screening Does Patient Have Any of the Following: No, Active Dx of HTN Blood Pressure Classification: Hypertensive Reading Systolic Measurement: 153 Diastolic Measurement: 74 Screening for High Blood Pressure: Patient Exclusion, Hx of HTN [[id number]]
[2019-04-14] MEDS ORDERED: 0.9 % SODIUM CHLORIDE 500ML 500 ML IV ONE (21:40)
[2019-04-14 21:42] LABS: ABSOLUTE NEUTROPHIL COUNT 3.38; BASO % 0.5 % (0-6); EOS % 1.1 % (0-6); GRAN % 77.2 % (47-80); HEMATOCRIT 41.2 % (35.0-47.0); HEMOGLOBIN 12.6 gm/dl (11.6-16.0); LYMPH % 11.2 % (16-45); MEAN CELL VOLUME 96.3 fl (81-97); MEAN CORPUSCULAR HEMOGLOBIN 29.4 pg (27-33); MEAN CORPUSCULAR HGB CONC 30.6 g/dl (32-36); MEAN PLATELET VOLUME 9.4 fl (7.4-10.4); PLATELET COUNT 148 K/uL (130-400); RED BLOOD COUNT 4.28 M/uL (3.80-5.40); RED CELL DISTRIBUTION WIDTH 16.7 % (11.5-14.5); WHITE BLOOD COUNT W/O DIFF 4.4 K/uL (4.2-12.2)
[2019-04-14 21:57] LABS: BILIRUBIN,TOTAL 1.5 mg/dL (0.2-1.0)
[2019-04-14 22:02] LABS: ALB/GLOB RATIO 1.1 (1.1-1.8); ALBUMIN 3.7 g/dL (4.0-5.0)
--- NOTE | 2019-04-14 22:25 | RADIOLOGY REPORT ---
EXAMINATION: Two View Chest Radiographs EXAM DATE: 04/14/2019 10:12 PM TECHNIQUE: Frontal and lateral views INDICATION: Cough COMPARISON: Chest CT 06/06/2017 ENCOUNTER: Not applicable FINDINGS: Extensive diffuse coarse reticular opacity corresponding with fibrosis on prior studies. No superimpo sed airspace disease. Cardiac silhouette is moderately enlarged. Diaphragm is unremarkable. Osteopeni a. IMPRESSION: Cardiomegaly with persistent severe pulmonary fibrosis. No definite acute superimposed infiltrate min ntified. Dictated by: Dhruv Rajput MD on 04/14/2019 10:22 PM. .
--- NOTE | 2019-04-14 22:33 | CT SCAN REPORT ---
EXAMINATION: CT Head without IV Contrast EXAM DATE: 04/14/2019 10:12 PM TECHNIQUE: Standard protocol CT images of the head were obtained without intravenous contrast. Cristina l and sagittal reconstructed images were created. INDICATION: Weakness COMPARISON: None HAND DOMINANCE: Unknown. ENCOUNTER: Not applicable FINDINGS: * There is generalized cerebral atrophy with associated ventriculomegaly and sulcal prominence. * There is hypoattenuation in the deep white matter which is likely microvascular in etiology. * The leonard-white interface is intact. * There is no sulcal effacement. * There is no intracranial hemorrhage. * There is no intracranial mass or shift of midline. * The calvarium is intact. * The subcutaneous tissues are normal. * The mastoid air cells and middle ears are well aerated. * The paranasal sinuses are well aerated. * The orbital contents are normal. IMPRESSION: No evidence of acute intracranial process Dictated by: Yevgeniy Woodward DO on 04/14/2019 10:23 PM. .
[2019-04-14 22:44] LABS: URINE APPEARANCE CLEAR; URINE BILIRUBIN NEGATIVE (NEGATIVE); URINE BLOOD TRACE-I (NEGATIVE); URINE COLOR YELLOW; URINE GLUCOSE (UA) NEGATIVE (NEGATIVE); URINE KETONE NEGATIVE (NEGATIVE); URINE LEUKOCYTE ESTERASE NEGATIVE (NEGATIVE); URINE NITRITE POSITIVE (NEGATIVE); URINE PROTEIN NEGATIVE (NEGATIVE)
[2019-04-14 22:54] LABS: URINE BACTERIA MANY; URINE EPITHELIAL CELLS NONE SEEN (FEW); URINE RBC 0 - 2 (NONE SEEN)
[2019-04-14] MEDS ORDERED: ACETAMINOPHEN 325 MG TAB PO PRN (23:30)
[2019-04-15] MEDS ORDERED: ASPIRIN 81 MG TABEC PO ONE (00:36)
[2019-04-15 05:53] LABS: ABSOLUTE NEUTROPHIL COUNT 3.06; BASO % 0.5 % (0-6); EOS % 1.4 % (0-6); GRAN % 70.8 % (47-80); HEMATOCRIT 40.3 % (35.0-47.0); LYMPH % 15.3 % (16-45); MEAN CELL VOLUME 95.3 fl (81-97); MEAN CORPUSCULAR HEMOGLOBIN 28.4 pg (27-33); MEAN CORPUSCULAR HGB CONC 29.8 g/dl (32-36); MEAN PLATELET VOLUME 9.2 fl (7.4-10.4); PLATELET COUNT 168 K/uL (130-400); RED BLOOD COUNT 4.23 M/uL (3.80-5.40); RED CELL DISTRIBUTION WIDTH 16.6 % (11.5-14.5); WHITE BLOOD COUNT W/O DIFF 4.3 K/uL (4.2-12.2)
[2019-04-15 06:07] LABS: BLOOD UREA NITROGEN 14 mg/dL (8-23); CREATININE 0.8 mg/dL (0.5-0.9); EST GLOMERULAR FILTRATION RATE > 60 mL/min; GLUCOSE,RANDOM 85 mg/dL (74-109)
[2019-04-15] MEDS: CEFTRIAXONE 1GM/50ML BAG 1 GM/50 ML BAG IVPB SCH ×2 (08:25→18:53)
[2019-04-15] MEDS: METOPROLOL TART 50 MG TABLET PO SCH ×2 (09:08→21:31)
[2019-04-15] MEDS ORDERED: FUROSEMIDE IV 40MG/4ML VIAL IVP ONE (10:23)
[2019-04-15] MEDS: POTASSIUM CHLORIDE 20 MEQ TABLET PO SCH (10:41)
--- NOTE | 2019-04-15 10:55 | History & Physical ---
History of Present Illness - Date of Service Date of Service for History & Physical: 04/15/19 - History of Present Illness Admitting Diagnosis: Weakness with gait instability. UTI. CHF exacerbation History of Present Illness: 83 year old female patient presented to ED via EMS for weakness. Patient reports multiple episodes where she "slid to the floor" but was then unable to get up. Patient currently lives with her son but is responsible for performing her own ADLs. Patient reports typically ambulating within the home with a walker. Has noted progressively worsening weakness over the past 2-3 days. Patient denies any chest pain, worsening shortness of breath, change in cough, fever, nausea, vomiting, or urinary symptoms. Patient reports a chronic cough due to pulmonary fibrosis, for which she is also on home oxygen. Patient reports a history of a-fib for which she no longer takes coumadin, just 81mg ASA, CHF, and pulmonary fibrosis. 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 PCP: Dr. Shelby ED Course: CXR: cardiomegaly with persistent severe pulmonary fibrosis; no infiltrates noted Head CT: no acute intracranial process EKG: a-fib rate 54 CBC, CMP unremarkable Trop <0.010 BNP 7601 UA: positive nitrites, WBC 3-5, many bacteria 04/15/19: Patient A&O x 4, resting in bed. Mild tachypnea noted, patient reports per her baseline. Reports infrequent use of her lasix, due to not wanting to have to use the bathroom when leaving the house. Not currently managed by cardiology. Travel Screening - Travel/Exposure Within Last 30 Days Have you traveled within the last 30 days?: No - Travel/Exposure Within Last Year Have you traveled outside the [place] in the last year?: No - Additonal Travel Details Have you been exposed to anyone with a communicable illness?: Yes Exposure Details:: son has cold symptoms - Travel Symptoms Symptom Screening: Weakness Review of Systems Reviewed: No additional complaints except as noted below Constitutional: Reports: As per HPI, Weakness. Denies: Chills, Fever Eyes: Denies: Eye discharge, Eye pain, Vision change ENT: Denies: Congestion, Ear pain, Throat pain Respiratory: Reports: As per HPI, Cough. Denies: Hemoptysis, Stridor, Wheezes Cardiovascular: Denies: Arrhythmia, Chest pain, Palpitations, Syncope Endocrine: Reports: As per HPI, Fatigue Gastrointestinal: Denies: Abdominal pain, Diarrhea, Nausea, Vomiting Genitourinary: Denies: Dysuria Musculoskeletal: Denies: Back pain Skin: Denies: Rash Neurological: Reports: As per HPI, Weakness. Denies: Headache, Tingling, Tremors Psychiatric: Denies: Anxiety, Suicidal thoughts Hematological/Lymphatic: Denies: Anemia Past Medical History - SOCIAL HISTORY Smoking Status: Never smoker Alcohol Use: None Drug Use: None - RESPIRATORY Hx Respiratory Disorders: Yes Hx Asthma: No Hx Bronchitis: No Hx COPD: Yes Hx Dyspnea: No Hx Pneumonia: Yes Hx Pulmonary Embolism: No Hx Sleep Apnea: No Hx Tuberculosis: No Hx of CPAP: No - CARDIOVASCULAR Hx Cardio Disorders: Yes Hx Abnormal EKG: No Hx Cardiac Cath: No Hx Chest Pain: No Hx CHF: Yes (patient denies CHF) Hx Deep Vein Thrombosis: No Hx Edema: Yes Hx Heart Attack: No Hx Hypertension: No Hx Hypotension: No Hx Irregular Heartbeat: Yes (Atrial fib) Hx Palpitations: No Hx Pacemaker/Defib: No Hx Vascular Disease: No Comment:: high cholesterol - NEURO Hx Neuro Disorders: No Hx Brain Tumor: No Hx CVA: No Hx Dementia: No Hx Dizziness: No Hx Headaches: No Hx Neuropathy: No Hx Parkinson's Disease: No Hx Seizures: No Hx Speech Problem: No Hx TIA: No - GI Hx GI Disorders: No Hx Abdominal Pain: No Hx Celiac Disease: No Hx Crohn's Disease: No Hx Diverticulitis: No Hx GI Bleed: No Hx Reflux: No Hx Hepatitis/Jaundice: No Hx Hiatal Hernia: No Hx Irritable Bowel: No Hx Liver Disease: No Hx Nausea/Vomiting: No Hx Obstructive Bowel: No Hx Pancreatitis: No Hx Rectal Bleeding: No Hx Ulcer: No Hx Wt Loss/Wt Gain: No Hx of Polyps: No - Hx Genitourinary Disorders: No Hx Bladder Problem: No Hx Dialysis: No Hx Kidney Stones: No Hx Renal Disease: No Hx UTI: No - ENDOCRINE Hx Endocrine Disorders: Yes Hx Diabetes: Yes (diet controlled) Hx Thyroid Disease: No - MUSCULOSKELETAL Hx Musculoskeletal Disorders: No Hx Arthritis: No Hx Back Injury: No Hx Fibromyalgia: No Hx Gout: No Hx Musculoskeletal Disease: No Hx Osteoporosis: No - PSYCH Hx Psych Problems: No Hx Anxiety: No Hx Behavior Problems: No Hx Depression: No Hx Emotional Abuse: No Hx Sexual Abuse: No Hx Suicide Attempt: No - HEMATOLOGY/ONCOLOGY Hx Hematology/Oncology Disorders: No Hx Anemia: No Hx Blood Disorders: No Hx Bruising: No Hx Cancer: No Hx Clotting Problems: No Hx Sickle Cell Disease: No Hx Unexplained Bleeding: No Hx Blood Transfusions: No Hx Blood Transfusion Reaction: No Family Medical History Any Significant Family History?: No Hx Diabetes: Mother Hx Heart Disease: Father *Heart Comment: afib Hx Resp Disorders: Grandparents *Resp Comment: TB H&P Meds/Allergies - Allergies Allergies: Allergies Allergy/AdvReac Type Severity Reaction Status Date / Time No Known Drug Allergies Allergy Verified 04/14/19 21:25 - Home Medications Home Medications Medication Instructions Recorded Confirmed Last Taken Furosemide [Lasix] 40 mg PO DAILY 04/14/19 04/14/19 Unknown Potassium Chloride 1 packet PO DAILY 04/14/19 04/14/19 Unknown Previous Rx's Medication Instructions Recorded Albuterol Sulfate [Proair Hfa] 2 puff IH QID PRN #1 inhaler 04/22/17 Albuterol Sulfate [Ventolin Hfa] 2 puff INH RESP.Q4H.WA #1 inhaler 04/25/17 - Active Medications Active Medications: Current Medications Acetaminophen (Tylenol 325mg) 650 mg PO Q4H PRN PRN Reason: PAIN - MILD(1-4)/FEVER Aspirin (Ecotrin (Ec)) 81 mg PO QHS [facility] Diltiazem HCl (Cardizem Cd) 180 mg PO DAILY [facility] Enoxaparin Sodium (Lovenox) 40 mg SQ DAILY [facility] Furosemide (Lasix) 40 mg PO DAILY [facility] CEFTRIAXONE 1GM/50ML BAG (Ceftriaxone 1 Gm-D5w Bag) 1 gm in 50 mls @ 100 mls/hr IVPB Q12H [facility] Last Infusion: 04/15/19 08:55 Dose: Infused Documented by: Metoprolol Tartrate (Lopressor) 50 mg PO BID [facility] Last Admin: 04/15/19 09:08 Dose: 50 mg Documented by: Potassium Chloride (Klor-Con) 20 meq PO DAILY [facility] Physical Exam - Vital Signs Vital Signs: Vital Signs - Last 24 Hrs Temp Pulse Pulse Pulse Resp BP BP 04/15/19 08:00 97.8 F 62 16 139/58 04/15/19 04:00 97.9 F 53 L 16 143/66 04/15/19 00:58 57 L 20 04/14/19 23:44 98.1 F 62 20 144/64 04/14/19 23:17 51 L 20 138/61 04/14/19 21:07 97.9 F 61 26 H 153/74 Pulse Ox 04/15/19 08:00 94 L 04/15/19 04:00 96 04/15/19 00:58 04/14/19 23:44 91 L 04/14/19 23:17 98 04/14/19 21:07 97 - General General Appearance: Alert, Oriented x3, Cooperative, No acute distress Limitations: No limitations - Head Head exam: Atraumatic, Normocephalic Head exam detail: negative: Abrasion, Contusion, General tenderness, Hematoma - Eye Eye exam: Normal appearance, PERRL, EOMI - ENT ENT exam: Mucous membranes dry, Normal external ear exam Nasal Exam: Normal inspection Mouth exam: Normal external inspection - Neck Neck exam: Normal inspection, Full ROM. negative: Lymphadenopathy, Tenderness - Respiratory Respiratory exam: Rales, Respiratory distress (conversational dyspnea noted), Wheezes. negative: Rhonchi - Cardiovascular Cardiovascular Exam: Irregular rhythm. negative: Diastolic murmur, Tachycardia Peripheral Pulses: 2+: Radial (R), Radial (L), Dorsalis Pedis (R), Dorsalis Pedis (L) - GI/Abdominal GI/Abdominal exam: Soft, Normal bowel sounds. negative: Guarding, Rebound, Tenderness - Rectal Rectal exam: Deferred - exam: Deferred - Extremities Extremities exam: Pedal edema (2+ right, 1+ left). negative: Tenderness - Back Back exam: Denies: Paraspinal tenderness - Neurological Neurological exam: Alert, Oriented X3 - Psychiatric Psychiatric exam: Normal affect, Normal mood - Skin Skin exam: Other (Pt with thick dry scaled skin to legs without weeping or erythema. ) Results - Labs Result Diagrams: 04/15/19 05:45 04/15/19 05:45 Labs Last 24 Hours: Laboratory Results - last 24 hr 04/14/19 04/14/19 04/14/19 21:34 21:34 21:34 WBC 4.4 RBC 4.28 Hgb 12.6 Hct 41.2 MCV 96.3 MCH 29.4 MCHC 30.6 L RDW 16.7 H Plt Count 148 MPV 9.4 Gran % 77.2 Lymphocytes % 11.2 L Monocytes % 10.0 H Eosinophils % 1.1 Basophils % 0.5 Absolute Neutrophils 3.38 Sodium 134 L Potassium 4.3 Chloride 95 L Carbon Dioxide 23.0 Anion Gap 16.0 BUN 16 Creatinine 1.0 H Estimated GFR 56 Random Glucose 119 H Calcium 8.8 Total Bilirubin 1.50 H AST 23 ALT 8 Alkaline Phosphatase 88 Troponin T NT-Pro-B Natriuret Pep Total Protein 7.0 Albumin 3.7 L Globulin 3.3 Albumin/Globulin Ratio 1.1 TSH 1.48 Urine Color Urine Appearance Urine pH Ur Specific [place] Urine Protein Urine Glucose (UA) Urine Ketones Urine Blood Urine Nitrite Urine Bilirubin Urine Urobilinogen Ur Leukocyte Esterase Urine RBC Urine WBC Ur Epithelial Cells Urine Bacteria 04/14/19 04/14/19 04/14/19 21:34 21:34 22:41 WBC RBC Hgb Hct MCV MCH MCHC RDW Plt Count MPV Gran % Lymphocytes % Monocytes % Eosinophils % Basophils % Absolute Neutrophils Sodium Potassium Chloride Carbon Dioxide Anion Gap BUN Creatinine Estimated GFR Random Glucose Calcium Total Bilirubin AST ALT Alkaline Phosphatase Troponin T < 0.010 NT-Pro-B Natriuret Pep 7601.00 H Cancelled Total Protein Albumin Globulin Albumin/Globulin Ratio TSH Urine Color Yellow Urine Appearance Clear Urine pH 6.5 Ur Specific [place] 1.015 Urine Protein Negative Urine Glucose (UA) Negative Urine Ketones Negative Urine Blood Trace-i Urine Nitrite Positive H Urine Bilirubin Negative Urine Urobilinogen 1.0 Ur Leukocyte Esterase Negative Urine RBC 0 - 2 Urine WBC 3 - 5 Ur Epithelial Cells None seen Urine Bacteria Many 04/15/19 04/15/19 05:45 05:45 WBC 4.3 RBC 4.23 Hgb 12.0 Hct 40.3 MCV 95.3 MCH 28.4 MCHC 29.8 L RDW 16.6 H Plt Count 168 MPV 9.2 Gran % 70.8 Lymphocytes % 15.3 L Monocytes % 12.0 H Eosinophils % 1.4 Basophils % 0.5 Absolute Neutrophils 3.06 Sodium 134 L Potassium 4.2 Chloride 95 L Carbon Dioxide 27.0 Anion Gap 12.0 BUN 14 Creatinine 0.8 Estimated GFR > 60 Random Glucose 85 Calcium 8.6 L Total Bilirubin AST ALT Alkaline Phosphatase Troponin T NT-Pro-B Natriuret Pep Total Protein Albumin Globulin Albumin/Globulin Ratio TSH Urine Color Urine Appearance Urine pH Ur Specific [place] Urine Protein Urine Glucose (UA) Urine Ketones Urine Blood Urine Nitrite Urine Bilirubin Urine Urobilinogen Ur Leukocyte Esterase Urine RBC Urine WBC Ur Epithelial Cells Urine Bacteria - Imaging and Cardiology CT scan - head Status: Report reviewed Chest x-ray Status: Report reviewed VTE H&P Assessment - Risk for VTE Risk for VTE: Yes Risk Level: Moderate Risk Assessment Date: 04/15/19 Risk Assessment Time: 10:57 VTE Orders Placed or Will Be Placed: Yes AMI H&P Plan - EKG Initial Date: 04/14/19 Time: 21:23 EKG: No Acute Changes (Comp with 06/06/17) Plan - Inpatient Certification Inpatient Certification: Admit to inpatient care: Based on my medical assessment, after consideration of patient's risk factors (age, co-morbidities and patient presenting symptoms and acuity), I expect that this patient will remain in the hospital greater than or equal to two midnights and that the services needed warrant inpatient care because: Patient Risk Factors: [age, hospitalization, multiple comorbidities, UTI, CHF exacerbation] Estimated length of stay: The patient may reasonably be expected to be discharg ed or transferred to a hospital within 24-96 hours after admission to [facility]. 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 04/15/19 10:57 - Detailed Diagnosis and Plan (1) Weakness generalized Current Visit: Yes Status: Acute Base Code: R53.1 - WEAKNESS Comment: 04/15/19 - Generalized weakness with no focal deficits - Head CT: no acute intracranial process - Noted worsening symptoms x 2-3 days - Patient declining home PT at this time, also does not want to consider JAME - Likely due to UTI - Nursing to assit up, fall risk precautions in place (2) CHF (congestive heart failure) Current Visit: No Status: Acute Qualifiers: Heart failure type: unspecified Heart failure chronicity: acute Qualified Code(s): I50.9 - Heart failure, unspecified Base Code: I50.9 - HEART FAILURE, UNSPECIFIED Comment: 04/15/19 - BNP 7601 - Patient reports poor compliance with Lasix at home - No current urban gardening specialist, has refused cardiac interventions in the past - ECHO 06/06/17: EF 65%, moderate biatrial enlargement, mild mitral regurg, enlarged right ventricle with mildly reduced function, moderate tricuspid insufficiency - Start gentle diuresis with Lasix 40mg IVP, potassium replacement, and restart lasix 40mg PO tomorrow - Daily weight - I&O q shift - 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
[2019-04-15] MEDS: DILTIAZEM 180MG CR CAPSULE PO SCH (14:11)
[2019-04-15] MEDS: ASPIRIN 81 MG TABEC PO SCH (21:31)
[2019-04-16 06:17] LABS: BASO % 0.5 % (0-6); GRAN % 72.4 % (47-80); HEMATOCRIT 40.3 % (35.0-47.0); LYMPH % 14.9 % (16-45); MEAN CELL VOLUME 94.2 fl (81-97); MEAN CORPUSCULAR HGB CONC 29.8 g/dl (32-36); MEAN PLATELET VOLUME 9.5 fl (7.4-10.4); MONO % 10.2 % (0-9); PLATELET COUNT 165 K/uL (130-400); RED BLOOD COUNT 4.28 M/uL (3.80-5.40); RED CELL DISTRIBUTION WIDTH 16.5 % (11.5-14.5); WHITE BLOOD COUNT W/O DIFF 4.4 K/uL (4.2-12.2)
[2019-04-16 06:33] LABS: BLOOD UREA NITROGEN 15 mg/dL (8-23); CREATININE 0.8 mg/dL (0.5-0.9); EST GLOMERULAR FILTRATION RATE > 60 mL/min; GLUCOSE,RANDOM 86 mg/dL (74-109)
[2019-04-16] MEDS: CEFTRIAXONE 1GM/50ML BAG 1 GM/50 ML BAG IVPB SCH ×2 (07:05→20:24)
[2019-04-16] MEDS ORDERED: FUROSEMIDE IV 40MG/4ML VIAL IVP ONE (09:17)
[2019-04-16] MEDS: METOPROLOL TART 50 MG TABLET PO SCH ×2 (09:49→21:32)
[2019-04-16] MEDS: POTASSIUM CHLORIDE 20 MEQ TABLET PO SCH (09:49)
[2019-04-16] MEDS: ENOXAPARIN 40 MG/0.4 ML SYR SQ SCH ×2 (09:49→10:02)
[2019-04-16] MEDS: DILTIAZEM 180MG CR CAPSULE PO SCH (09:49)
--- NOTE | 2019-04-16 09:50 | Physician Progress Note ---
Subjective - Date Date of Physician Progress Note: 04/16/19 - Subjective Subjective Comment: Mild improvement in SOB after receiving lasix 40mg IVP yesterday. Adequate urine output with some urinary incontinence noted. Patient had 4 pound weight loss noted. Patient agreeable to staying for further diuresis, cardiology consult, ECHO, and PT/OT eval tomorrow. Objective - Vital Signs Vital Signs: Vital Signs - Last 24 Hrs Temp Pulse Resp BP Pulse Ox 04/16/19 08:00 98.8 F 63 20 138/52 94 L 04/16/19 06:00 98.1 F 57 L 20 137/69 92 L 04/16/19 02:00 97.6 F 73 24 142/67 90 L 04/15/19 20:00 97.8 F 57 L 20 144/61 94 L 04/15/19 16:00 98.6 F 55 L 17 134/62 92 L 04/15/19 14:06 60 18 119/63 93 L 04/15/19 12:00 97.8 F 55 L 16 149/58 94 L - General General Appearance: Alert, Oriented x3, Cooperative, No acute distress Limitations: No limitations - Head Head exam: Atraumatic, Normocephalic Head exam detail: negative: Abrasion, Contusion, General tenderness, Hematoma - Eye Eye exam: Normal appearance, PERRL, EOMI - ENT ENT exam: Mucous membranes dry, Normal external ear exam Nasal Exam: Normal inspection Mouth exam: Normal external inspection - Neck Neck exam: Normal inspection, Full ROM. negative: Lymphadenopathy, Tenderness - Respiratory Respiratory exam: Prolonged expiratory, Respiratory distress (conversational dyspnea noted, improved from yesterday), Wheezes. negative: Rhonchi - Cardiovascular Cardiovascular Exam: Irregular rhythm. negative: Diastolic murmur, Tachycardia Peripheral Pulses: 2+: Radial (R), Radial (L), Dorsalis Pedis (R), Dorsalis Pedis (L) - GI/Abdominal GI/Abdominal exam: Soft, Normal bowel sounds. negative: Guarding, Rebound, Tenderness - Rectal Rectal exam: Deferred - exam: Deferred - Extremities Extremities exam: Pedal edema (2+ right, 1+ left). negative: Tenderness - Back Back exam: Denies: Paraspinal tenderness - Neurological Neurological exam: Alert, Oriented X3 - Psychiatric Psychiatric exam: Normal affect, Normal mood - Skin Skin exam: Other (Pt with thick dry scaled skin to legs without weeping or erythema. ) Assessment and Plan - Assessment and Plan (1) Weakness generalized Current Visit: Yes Status: Acute Base Code: R53.1 - WEAKNESS Comment: 04/16/19 - Generalized weakness with no focal deficits - Head CT: no acute intracranial process - Noted worsening symptoms x 2-3 days - Patient declining home PT at this time, also does not want to consider JAME at this time - Likely due to UTI - Nursing to assit up, fall risk precautions in place - PT/OT to evaluate tomorrow (2) CHF (congestive heart failure) Current Visit: No Status: Acute Qualifiers: Heart failure type: unspecified Heart failure chronicity: acute Qualified Code(s): I50.9 - Heart failure, unspecified Base Code: I50.9 - HEART FAILURE, UNSPECIFIED Comment: 04/16/19 - BNP 7601 on admission - Patient reports poor compliance with Lasix at home - 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, 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 cardiac interventions in the past - ECHO 06/06/17: EF 65%, moderate biatrial enlargement, mild mitral regurg, enlarged right ventricle with mildly reduced function, moderate tricuspid insufficiency - Start gentle diuresis with Lasix 40mg IVP, potassium replacement - Daily weight, down 4 pounds since admission - I&O q shift - Fluid restrictions - library monitor - BMP unremarkable today - Continue Lasix 40mg IVP daily - Cardiology consult and ECHO to be completed tomorrow (3) UTI (urinary tract infection) Current Visit: Yes Status: Acute Base Code: N39.0 - URINARY TRACT INFECTION, SITE NOT SPECIFIED Comment: 04/16/19 - UA positive for nitrites, WBC 3-5, many bacteria - Starting Rocephin 1gm IVPB q12h (4) Chronic atrial fibrillation Current Visit: No Status: Acute Base Code: I48.2 - CHRONIC ATRIAL FIBRILLAT ION * DO NOT USE * Comment: 04/16/19 - Chronic a-fib, rate controlled on metoprolol and diltiazem - No current anticoagulation outside of ASA 81mg daily. Family reports patient stopped taking Warfarin several years ago - CHADSVASC of 5; patient refused anticoagulation in the past, reports PCP is aware. Cardiology consult tomorrow to further discuss need for anticoagulant - library monitor (5) DVT prophylaxis Current Visit: No Status: Acute Base Code: [id number] - Comment: 04/16/19 - Continue ASA 81mg daily - Adding Lovenox 40mg SQ daily while hospitalized (6) DNR (do not resuscitate) Current Visit: Yes Status: Acute Base Code: Z66 - DO NOT RESUSCITATE Comment: 04/16/19 - Pt is DNR Results - Labs Result Diagrams: 04/16/19 06:00 04/16/19 06:00 Labs Last 24 Hours: Laboratory Results - last 24 hr 04/16/19 04/16/19 06:00 06:00 WBC 4.4 RBC 4.28 Hgb 12.0 Hct 40.3 MCV 94.2 MCH 28.0 MCHC 29.8 L RDW 16.5 H Plt Count 165 MPV 9.5 Gran % 72.4 Lymphocytes % 14.9 L Monocytes % 10.2 H Eosinophils % 2.0 Basophils % 0.5 Absolute Neutrophils 3.20 Sodium 136 Potassium 4.0 Chloride 98 Carbon Dioxide 24.0 Anion Gap 14.0 BUN 15 Creatinine 0.8 Estimated GFR > 60 Random Glucose 86 Calcium 8.5 L DVT/PE Assessment - Risk for VTE Risk for VTE: No Risk Level: Moderate Risk Assessment Date: 04/15/19 Risk Assessment Time: 10:57 VTE Orders Placed or Will Be Placed: Yes - Active Medicaitons Current Medications: Current Medications Acetaminophen (Tylenol 325mg) 650 mg PO Q4H PRN PRN Reason: PAIN - MILD(1-4)/FEVER Aspirin (Ecotrin (Ec)) 81 mg PO QHS [facility] Last Admin: 04/15/19 21:31 Dose: 81 mg Documented by: Diltiazem HCl (Cardizem Cd) 180 mg PO DAILY [facility] Last Admin: 04/15/19 14:11 Dose: 180 mg Documented by: Enoxaparin Sodium (Lovenox) 40 mg SQ DAILY [facility] Furosemide (Lasix) 40 mg PO DAILY [facility] CEFTRIAXONE 1GM/50ML BAG (Ceftriaxone 1 Gm-D5w Bag) 1 gm in 50 mls @ 100 mls/hr IVPB Q12H [facility] Last Infusion: 04/16/19 07:40 Dose: Infused Documented by: Metoprolol Tartrate (Lopressor) 50 mg PO BID [facility] Last Admin: 04/15/19 21:31 Dose: 50 mg Documented by: Potassium Chloride (Klor-Con) 20 meq PO DAILY [facility] Last Admin: 04/15/19 10:41 Dose: 20 meq Documented by: AMI Plan - Labs Result Diagrams: 04/16/19 06:00 04/16/19 06:00
[2019-04-16] MEDS ORDERED: FUROSEMIDE 40 MG TABLET PO SCH (10:00)
[2019-04-16] MEDS: ASPIRIN 81 MG TABEC PO SCH (21:32)
[2019-04-17 06:41] LABS: BLOOD UREA NITROGEN 15 mg/dL (8-23); CREATININE 0.8 mg/dL (0.5-0.9); EST GLOMERULAR FILTRATION RATE > 60 mL/min; GLUCOSE,RANDOM 108 mg/dL (74-109)
[2019-04-17] MEDS: CEFTRIAXONE 1GM/50ML BAG 1 GM/50 ML BAG IVPB SCH (07:50)
--- NOTE | 2019-04-17 09:32 | Rehab Evaluation ---
Patient Information - Patient Information Diagnosis: UTI,CHF exacerbation, weakness, gait instability Ordered Treatment: PT Evaluate and Treat Status: Initial Evaluation History: Detail (The patient presented in ER on 04/14 after sliding out of chair to floor and with complaints of increased weakness.) Past Medical/Surgical Hx: PAST MEDICAL/SURGICAL HISTORY Past Surgical History hyst breast biopsy PMH - Respiratory Hx Respiratory Disorders Yes Hx Asthma No Hx Bronchitis No Hx Chronic Obstructive Yes Pulmonary Disease (COPD) Hx Dyspnea No Hx Pneumonia Yes Hx Pulmonary Embolism No Hx Sleep Apnea No Hx Tuberculosis No Hx of CPAP No PMH - Cardiovascular Hx Cardiovascular Disorders Yes Hx Abnormal EKG No Hx Cardiac Catheterization No Hx Chest Pain No Hx Congestive Heart Failure Yes: patient denies CHF Hx Deep Vein Thrombosis No Hx Edema Yes Hx Heart Attack No Hx Hypertension No Hx Hypotension No Hx Irregular Heartbeat Yes: Atrial fib Hx Palpitations No Hx Pacemaker/Defibrillator No Hx Vascular Disease No Hx Transient Ischemic Attacks No (TIA) Comment: high cholesterol PMH - Neuro Hx Neurological Disorders No Hx Brain Tumor No Hx Cerebrovascular Accident No Hx Dementia No Hx Dizziness No Hx Headaches No Hx Neuropathy No Hx Parkinson's Disease No Hx Seizures No Hx Speech Problem No Hx Syncope No Hx Transient Ischemic Attacks No (TIA) PMH - GI Hx Gastrointestinal Disorders No Hx Abdominal Pain No Hx Celiac Disease No Hx Crohn's Disease No Hx Diverticulitis No Hx Gastrointestinal Bleed No Hx Gastroesophageal Reflux No Hx Hepatitis/Jaundice No Hx Hiatal Hernia No Hx Irritable Bowel No Hx Liver Disease No Hx Nausea/Vomiting No Hx Obstructive Bowel No Hx Pancreatitis No Hx Rectal Bleeding No Hx Ulcer No Hx Weight Loss/Weight Gain No PMH - Hx Genitourinary Disorders No Hx Bladder Problem No Hx Dialysis No Hx Kidney Stones No Hx Renal Disease No Hx Urinary Tract Infection No PMH - Endocrine Hx Endocrine Disorders Yes Hx Diabetes Yes: diet controlled Hx Thyroid Disease No PMH - Musculoskeletal Hx Musculoskeletal Disorders No Hx Arthritis No Hx Back Injury No Hx Fibromyalgia No Hx Gout No Hx Musculoskeletal Disease No Hx Osteoporosis No PMH - Psych Hx Psychiatric Problems No Hx Anxiety No Hx Behavior Problems No Hx Depression No Hx Emotional Abuse No Hx Sexual Abuse No Hx Suicide Attempt No PMH - Hematology/Oncology Hx Hematology/Oncology No Disorders Hx Anemia No Hx Blood Disorders No Hx Bruising No Hx Cancer No Hx Clotting Problems No Hx Sickle Cell Disease No Hx Unexplained Bleeding No Hx Blood Transfusion Reaction No Premorbid Status: Detail (The patient prior to admission was ambulatory with 4 wheeled walker with use of 4L of O2. The patient per her report was independent with showering and dressing except for her shoes and socks which son helps her with. The patient's son and daughter bring her meals. The patient also has assistance with all psychologist experimental including laundry.) Social History: Detail (The patient lives in the basement of her son's house with no steps at the enterance. The bathroom is equipped with: a walk in shower with a seat, hand held shower and an elevated toilet. Grab bars are present by the toilet and tub. The patient has home O2, a 4 wheeled walker, bed with elevated head and wheelchair.) Precautions: [place], Fall - Time With Patient Total Time Spent With Patient (Min): 30 Treatment Procedures: Detail (Initial evaluation, low complexity) Subjective Information - Subjective Information Per Patient (The patient had no complaints of pain.) Objective Data - Mental Status Patient Orientation: Oriented x3 - Visual Perception Deficit (The patient stated she has blurry vision.) - ROM Within normal limits (LE AROM is WNL.) - Strength/Tone Not within normal limits (The patient's LE strength is as follows: bilateral hip flexor 4-/5, hip abductors and adductors 4/5, knee extensors 4+/5, knee flexors 4/5, ankle flexors 4+/5.) - Bed Mobility Independent (The patient was independent with supine to and from sit transfer.) - Transfers Independent (The patient was independent with sit to and from stand transfer.) - Balance Balance Sitting: Good Balance Standing: Fair (The patient was able to stand without support. Balance was not tested objectively due to fatigue.) - Gait Detail (The patient ambulated with front wheeled walker independently with 4 L of O2 a distance of 40 feet x1. The patient exhibited shortness of breath after ambulating.) - Special Tests Yes (Increased bilateral LE edema was noted.) Therapy Assessment - Therapy Assessment Detail (The patient was independent with bed mobility, ambulation and transfers. The patient was short of breath with ambulation and activity and decreased LE strength. Due to LE weakness and decreased endurance the patient would benefit from ongoing PT to increase strength and endurance. Patient declined home services and was reluctant to have continuing inpt. PT. The patient has all necessary assistive devices at home.) Problem List - Problem List Physical Therapy Problem List: Detail (1) Decreased bilateral LE strength 2) Shortness of breath with ambulation and physical activity) Goals - Goals Physical Therapy Goals: 1) The patient will ambulate household distance with minimal to no shortness of breath. 2) Increase LE strength 1/3 muscle grade to increase stability of gait. 3) Assess the patient's balance using an objective balance test. Plan - Plan Physical Therapy Plan: Ongoing PT was recommended, however pt. declined. Will monitor patient's status while an inpt. at [facility] for gait training to increase endurance and LE strengthening exercises.
[2019-04-17] MEDS: DILTIAZEM 180MG CR CAPSULE PO SCH (09:45)
[2019-04-17] MEDS: POTASSIUM CHLORIDE 20 MEQ TABLET PO SCH (09:45)
[2019-04-17] MEDS: METOPROLOL TART 50 MG TABLET PO SCH (09:45)
[2019-04-17] MEDS: ENOXAPARIN 40 MG/0.4 ML SYR SQ SCH (09:46)
--- NOTE | 2019-04-17 10:42 | Rehab Evaluation ---
Patient Information - Patient Information Diagnosis: UTI, CHF, weakness with gait instability Ordered Treatment: OT Evaluate and Treat Status: Initial Evaluation Surgery: No History: Detail (The patient presented in ER on 04/14/19 after sliding out of chair to floor and with complaints of increased weakness.) Past Medical/Surgical Hx: PAST MEDICAL/SURGICAL HISTORY Past Surgical History hyst breast biopsy PMH - Respiratory Hx Respiratory Disorders Yes Hx Asthma No Hx Bronchitis No Hx Chronic Obstructive Yes Pulmonary Disease (COPD) Hx Dyspnea No Hx Pneumonia Yes Hx Pulmonary Embolism No Hx Sleep Apnea No Hx Tuberculosis No Hx of CPAP No PMH - Cardiovascular Hx Cardiovascular Disorders Yes Hx Abnormal EKG No Hx Cardiac Catheterization No Hx Chest Pain No Hx Congestive Heart Failure Yes: patient denies CHF Hx Deep Vein Thrombosis No Hx Edema Yes Hx Heart Attack No Hx Hypertension No Hx Hypotension No Hx Irregular Heartbeat Yes: Atrial fib Hx Palpitations No Hx Pacemaker/Defibrillator No Hx Vascular Disease No Hx Transient Ischemic Attacks No (TIA) Comment: high cholesterol PMH - Neuro Hx Neurological Disorders No Hx Brain Tumor No Hx Cerebrovascular Accident No Hx Dementia No Hx Dizziness No Hx Headaches No Hx Neuropathy No Hx Parkinson's Disease No Hx Seizures No Hx Speech Problem No Hx Syncope No Hx Transient Ischemic Attacks No (TIA) PMH - GI Hx Gastrointestinal Disorders No Hx Abdominal Pain No Hx Celiac Disease No Hx Crohn's Disease No Hx Diverticulitis No Hx Gastrointestinal Bleed No Hx Gastroesophageal Reflux No Hx Hepatitis/Jaundice No Hx Hiatal Hernia No Hx Irritable Bowel No Hx Liver Disease No Hx Nausea/Vomiting No Hx Obstructive Bowel No Hx Pancreatitis No Hx Rectal Bleeding No Hx Ulcer No Hx Weight Loss/Weight Gain No PMH - Hx Genitourinary Disorders No Hx Bladder Problem No Hx Dialysis No Hx Kidney Stones No Hx Renal Disease No Hx Urinary Tract Infection No PMH - Endocrine Hx Endocrine Disorders Yes Hx Diabetes Yes: diet controlled Hx Thyroid Disease No PMH - Musculoskeletal Hx Musculoskeletal Disorders No Hx Arthritis No Hx Back Injury No Hx Fibromyalgia No Hx Gout No Hx Musculoskeletal Disease No Hx Osteoporosis No PMH - Psych Hx Psychiatric Problems No Hx Anxiety No Hx Behavior Problems No Hx Depression No Hx Emotional Abuse No Hx Sexual Abuse No Hx Suicide Attempt No PMH - Hematology/Oncology Hx Hematology/Oncology No Disorders Hx Anemia No Hx Blood Disorders No Hx Bruising No Hx Cancer No Hx Clotting Problems No Hx Sickle Cell Disease No Hx Unexplained Bleeding No Hx Blood Transfusion Reaction No Premorbid Status: Detail (The patient prior to admission was ambulatory with 4 wheeled walker with use of 4L of O2. The patient per her report was independent with showering and dressing except for her shoes and socks which son helps her with. The patient's son and daughter bring her meals. The patient also has assistance with all special needs child caregiver including laundry and home mgmt tasks.) Social History: Detail (The patient lives in the basement of her son's house with no steps at the entrance. The bathroom is equipped with: a walk in shower with a seat, hand held shower and an elevated toilet. Grab bars are present by the toilet and tub. The patient has home O2, a 4 wheeled walker, bed with elevated head and wheelchair.) Precautions: [place], Fall - Time With Patient Total Time Spent With Patient (Min): 30 Treatment Procedures: Detail (OT eval low complexity) Subjective Information - Subjective Information Per Patient Objective Data - Pain Pain Present: No - Mental Status Patient Orientation: Oriented x3 - Visual Perception Deficit (Pt reports a history of blurred vision.) - ROM Not within normal limits (Sean shoulder flexion limited to approx. 110 degrees, sean elbow and hand AROM WNL.) - Strength/Tone Within normal limits (Sean UE strength 4/5 throughout.) - Coordination Appears within normal limits for therapeutic activities - Bed Mobility Independent (Ind with supine to sit) - Transfers Independent (Ind with sit to stand from EOB) - Balance Balance Sitting: Good Balance Standing: Good - Sensation Intact - Gait Detail (Pt ambulating household distances with 2 wheeled walker and using 4 liters of oxygen. She was very slow but Ind.) - ADL's/IADL's Detail (Pt able to demonstrate Ind with doffing and donning slipper socks. She reports no concern about caring for her needs at home as her son and daughter assist as needed.) Therapy Assessment - Therapy Assessment Detail (Pt presents with decreased overall endurance but she was Ind with all assessed activities. She reports she is not interested in home OT and she is reluctant to continue on with IP OT as she feels she is fine.) Problem List - Problem List Physical Therapy Problem List: Detail (1) Decreased bilateral LE strength 2) Shortness of breath with ambulation and physical activity) Occupational Therapy Problem List: Detail (1. Decreased activity tolerance noted with ambulation and eval tasks.) Goals - Goals Physical Therapy Goals: 1) The patient will ambulate household distance with minimal to no shortness of breath. 2) Increase LE strength 1/3 muscle grade to increase stability of gait. 3) Assess the patient's balance using an objective balance test. Occupational Therapy Goals: 1. Pt will demonstrate improved overall endurance to ensure safety and Ind with ADLs. Prognosis - Prognosis Good Plan - Plan Physical Therapy Plan: Ongoing PT was recommended, however pt. declined. Will monitor patient's status while an inpt. at [facility] for gait training to increase endurance and LE strengthening exercises. Occupational Therapy Plan: Pt declined home OT and was reluctant to have IP OT. Will follow pt daily to assess further needs.
--- NOTE | 2019-04-17 13:14 | Discharge Summary ---
Providers Discharge Summary Date: 04/17/19 Date of admission: 04/14/19 23:28 Expected Date of Discharge: 04/17/19 Attending physician: SONIA BISHOP Primary care physician: Feliciano Shelby D.O. 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 Bautista Physical Exam - Vital Signs Vital Signs: Vital Signs - Last 24 Hrs Temp Pulse Pulse Resp BP Pulse Ox 04/17/19 09:43 97.7 F 65 16 132/69 96 04/17/19 09:00 65 65 16 04/17/19 04:00 98.9 F 65 53 L 16 129/53 95 04/16/19 21:00 65 60 18 04/16/19 20:00 98.1 F 65 60 18 148/66 96 04/16/19 16:00 97.6 F 55 L 16 146/55 90 L - General General Appearance: Alert, Oriented x3, Cooperative, No acute distress Limitations: No limitations - Head Head exam: Atraumatic, Normocephalic Head exam detail: negative: Abrasion, Contusion, General tenderness, Hematoma - Eye Eye exam: Normal appearance, PERRL, EOMI - ENT ENT exam: Mucous membranes dry, Normal external ear exam Nasal Exam: Normal inspection Mouth exam: Normal external inspection - Neck Neck exam: Normal inspection, Full ROM. negative: Lymphadenopathy, Tenderness - Respiratory Respiratory exam: Prolonged expiratory, Respiratory distress (mild conversation al dyspnea noted, continues to improve), Wheezes. negative: Rhonchi - Cardiovascular Cardiovascular Exam: Irregular rhythm. negative: Diastolic murmur, Tachycardia Peripheral Pulses: 2+: Radial (R), Radial (L), Dorsalis Pedis (R), Dorsalis Pedis (L) - GI/Abdominal GI/Abdominal exam: Soft, Normal bowel sounds. negative: Guarding, Rebound, Tenderness - Rectal Rectal exam: Deferred - exam: Deferred - Extremities Extremities exam: Pedal edema (2+ right, 1+ left). negative: Tenderness - Back Back exam: Denies: Paraspinal tenderness - Neurological Neurological exam: Alert, Oriented X3 - Psychiatric Psychiatric exam: Normal affect, Normal mood - Skin Skin exam: Other (Pt with thick dry scaled skin to legs without weeping or erythema; chronic skin changes) Hospitalization - Hospitalization Admission Diagnosis: Weakness with gait instability. UTI. CHF exacerbation - Problem List/Discharge Diagnosis (1) Weakness generalized Current Visit: Yes Status: Acute Base Code: R53.1 - WEAKNESS Comment: 04/17/19 - Generalized weakness with no focal deficits on admission - Head CT: no acute intracranial process - Noted worsening symptoms x 2-3 days [facility] - Patient declining home PT at this time, also does not want to consider [facility] at this time - Likely due to UTI - PT/OT evaluated - Weakness improved since admission (2) CHF (congestive heart failure) Current Visit: No Status: Acute Discharge Diagnosis: Heart failure type: unspecified Heart failure chronicity: acute Qualified Code(s): I50.9 - Heart failure, unspecified Base Code: I50.9 - HEART FAILURE, UNSPECIFIED Comment: 04/17/19 - BNP 7601 on admission - Patient reports poor compliance with Lasix at home - 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, has refused cardiac interventions in the past - ECHO 06/06/17: EF 65%, moderate biatrial enlargement, mild mitral regurg, enlarged right ventricle with mildly reduced function, moderate tricuspid insufficiency - Start gentle diuresis with Lasix 40mg IVP, potassium replacement, continue with Lasix 40mg PO at discharge - Daily weight, down 4 pounds since admission - I&O q shift - Fluid restrictions - bus monitor - BMP unremarkable - Cardiology consult with Ghanshyam Wong, ECHO to be completed outpatient (3) UTI (urinary tract infection) Current Visit: Yes Status: Acute Base Code: N39.0 - URINARY TRACT INFECTION, SITE NOT SPECIFIED Comment: 04/17/19 - UA positive for nitrites, WBC 3-5, many bacteria - Starting Rocephin 1gm IVPB q12h - Culture positive for e coli - DC with Macrobid 100mg BID at discharge for 3 additional days (4) Chronic atrial fibrillation Current Visit: No Status: Acute Base Code: I48.2 - CHRONIC ATRIAL FIBRILLATION * DO NOT USE * Comment: 04/17/19 - Chronic a-fib, rate controlled on metoprolol and diltiazem - No current anticoagulation outside of ASA 81mg daily. Family reports patient stopped taking Warfarin several years ago - CHADSVASC of 5; patient refused anticoagulation in the past, reports PCP is aware. Cardiology consult tomorrow to further discuss need for anticoagulant - bus monitor (5) DVT prophylaxis Current Visit: No Status: Acute Base Code: [id number] - Comment: 04/17/19 - Continue ASA 81mg daily - Adding Lovenox 40mg SQ daily while hospitalized (6) DNR (do not resuscitate) Current Visit: Yes Status: Acute Base Code: Z66 - DO NOT RESUSCITATE Comment: 04/17/19 - Pt is DNR - Hospitalization Course Disposition: Home, Self-Care Hospital Course: 83 year old female patient presented to ED via EMS for weakness. Patient reports multiple episodes where she "slid to the floor" but was then unable to get up. Patient currently lives with her son but is responsible for performing her own ADLs. Patient reports typically ambulating within the home with a walker. Has noted progressively worsening weakness over the past 2-3 days. Patient denies any chest pain, worsening shortness of breath, change in cough, fever, nausea, vomiting, or urinary symptoms. Patient reports a chronic cough due to pulmonary fibrosis, for which she is also on home oxygen. Patient reports a history of a-fib for which she no longer takes coumadin, just 81mg ASA, CHF, and pulmonary fibrosis. 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 PCP: Dr. Shelby ED Course: CXR: cardiomegaly with persistent severe pulmonary fibrosis; no infiltrates noted Head CT: no acute intracranial process EKG: a-fib rate 54 CBC, CMP unremarkable Trop <0.010 BNP 7601 UA: positive nitrites, WBC 3-5, many bacteria 04/15/19: Patient A&O x 4, resting in bed. Mild tachypnea noted, patient reports per her baseline. Reports infrequent use of her lasix, due to not wanting to have to use the bathroom when leaving the house. Not currently managed by cardiology. 04/17/19: Patient A&O x 4, respiratory effort improved with diuresis. Weakness has also improved. Continue with Macrobid on dc due to culture results of e coli. Cardiology consult, patient to have ECHO outpatient and continue following with cardiology for CHF and a-fib. Continue Lasix 40mg daily on dc. Procedures: Imaging and X-Rays 04/14/19 21:20 CHEST 2 VIEWS [RAD] Stat HEAD WO CONTRAST [CT] Stat Cardiology Procedures 04/14/19 21:20 Rn New Grad NOW EKG NOW 04/17/19 08:00 Echo W/CF & Cardiac Doppler ONCE Abnormal Labs: Abnormal Lab Results 04/14/19 04/14/19 04/14/19 Range/Units 21:34 21:34 21:34 MCHC 30.6 L (32-36) g/dl RDW 16.7 H (11.5-14.5) % Lymphocytes % 11.2 L (16-45) % Monocytes % 10.0 H (0-9) % Sodium 134 L (136-145) mmol/L Chloride 95 L (98-107) mmol/L Creatinine 1.0 H (0.5-0.9) mg/dL Random Glucose 119 H (74-109) mg/dL Calcium (8.8-10.2) mg/dL Total Bilirubin 1.50 H (0.2-1.0) mg/dL NT-Pro-B Natriuret Pep 7601.00 H (<450) pg/mL Albumin 3.7 L (4.0-5.0) g/dL Urine Nitrite (NEGATIVE) 04/14/19 04/15/19 04/15/19 Range/Units 22:41 05:45 05:45 MCHC 29.8 L (32-36) g/dl RDW 16.6 H (11.5-14.5) % Lymphocytes % 15.3 L (16-45) % Monocytes % 12.0 H (0-9) % Sodium 134 L (136-145) mmol/L Chloride 95 L (98-107) mmol/L Creatinine (0.5-0.9) mg/dL Random Glucose (74-109) mg/dL Calcium 8.6 L (8.8-10.2) mg/dL Total Bilirubin (0.2-1.0) mg/dL NT-Pro-B Natriuret Pep (<450) pg/mL Albumin (4.0-5.0) g/dL Urine Nitrite Positive H (NEGATIVE) 04/16/19 04/16/19 04/17/19 Range/Units 06:00 06:00 06:12 MCHC 29.8 L (32-36) g/dl RDW 16.5 H (11.5-14.5) % Lymphocytes % 14.9 L (16-45) % Monocytes % 10.2 H (0-9) % Sodium 134 L (136-145) mmol/L Chloride 96 L (98-107) mmol/L Creatinine (0.5-0.9) mg/dL Random Glucose (74-109) mg/dL Calcium 8.5 L 8.5 L (8.8-10.2) mg/dL Total Bilirubin (0.2-1.0) mg/dL NT-Pro-B Natriuret Pep (<450) pg/mL Albumin (4.0-5.0) g/dL Urine Nitrite (NEGATIVE) Condition at Discharge: (3) Guarded Discharge Medications - Discharge Medications Prescriptions: Nitrofurantoin Monohyd/M-Cryst [Macrobid 100 mg Capsule] 100 mg PO BID #6 capsule Home Medications: Ambulatory Orders Albuterol Sulfate [Proair Hfa] 2 puff IH QID PRN #1 inhaler 04/22/17 [Last Taken 1 Day Ago ~04/22/17] Diltiazem HCl [Diltiazem 24Hr ER] 180 mg PO DAILY 04/22/17 [Last Taken 04/22/17] Metoprolol Tartrate [Lopressor] 50 mg PO BID 04/23/17 [Last Taken 1 Day Ago ~04/22/17] Albuterol Sulfate [Ventolin Hfa] 2 puff INH RESP.Q4H.WA #1 inhaler 04/25/17 [Last Taken Unknown] Aspirin 81 mg PO DAILY 06/06/17 [Last Taken Unknown] Furosemide [Lasix] 40 mg PO DAILY 04/14/19 [Last Taken Unknown] Potassium Chloride 1 packet PO DAILY 04/14/19 [Last Taken Unknown] Nitrofurantoin Monohyd/M-Cryst [Macrobid 100 mg Capsule] 100 mg PO BID #6 capsule 04/17/19 [Last Taken Unknown] Discharge Plan - Discharge Instructions Activity at Discharge: Increase Activity as Tolerated Diet at Discharge: Advance to Usual Diet Instructions: Heart Failure (DC), Urinary Tract Infection in Women (DC) Additional Instructions: -Continue the antibiotics, Macrobid, for your urinary tract infection. Take 1 tab twice a day, your next dose is due tonight -Continue taking lasix every day -Follow-up with cardiology as scheduled. They will be setting up an outpatient ECHO for you. Schedule one week follow up appointment with Dr. Shelby. Quality Measures - Quality Measures Quality Measures: Atrial Fibrillation & Atrial Flutter: Chronic Anticoagulation Therapy, Advance Directives, Documentation of Current Medications in Medical Record, Elder Maltreatment Screen and Follow-Up Plan, Heart Failure, Screening for High Blood Pressure and F/U Documented - Current Medications Quality Measure: Measure #130: Documentation of Current Medications Documentation of Current Medications: <Current Medications Documented/Reviewed> [[id number]] - Blood Pressure Screening Quality Measure: Screening for High Blood Pressure and Follow-Up Documented Does Patient Have Any of the Following: Active Dx of HTN Blood Pressure Classification: Hypertensive Reading Systolic Measurement: 153 Diastolic Measurement: 74 Screening for High Blood Pressure: Patient Exclusion, Hx of HTN [Y2037] - Atrial Fibrillation and Atrial Flutter Quality Measure: Atrial Fibrillation & Atrial Flutter: Chronic Anticoagulation Therapy Does Patient Have Any of the Following: No CHADS2 Risk Stratification: Age 75 or Greater, Diabetes Mellitus, Heart Failure or Impaired LVSF Risk Stratification Summary: One or more high risk factors OR more than one moderate risk factor exists. [G8972] Anticoagulation Therapy: Not Prescribed for Patient Reason [G8969] Patient Reason for NOT Prescribing Anticoagulant: Non-compliance, Patient Refusal - Heart Failure (MAGGIE/ARB Therapy) Quality Measure: Heart Failure Left Ventricular Systolic Function: Unknown MAGGIE Inhibitor or ARB Therapy for LVSD: Not Eligible - Heart Failure (Beta-rani Therapy) Quality Measure: Heart Failure Left Ventricular Systolic Function: Unknown Beta-Rani Therapy for LVEF < 40%: Not Eligible - Advance Directives Quality Measure: Measure #47: Care Plan Advance Directives Established: No Advance Directives Information Provided To Patient: No Advance Directives on File: No Living Will: No Power of Application Development Specialist: No Advance Care Planning: <Care Plan/Decision Maker Not Decided; Discussed & Documented> [[id number]] - Elder Abuse Suspicion Index Screening: Elder Abuse Suspicion Index Screening Rely on people for bathing, dressing, shopping, banking, etc: Yes Prevented from getting food, clothes, medication, etc: No Made to feel shamed or threatened by someone: No Forced to sign papers or use money against will: No Feel afraid, touched in ways not wanted or hurt physically: No Poor eye contact, withdrawn, malnourished, cuts or bruises: No Screening Result: Negative result EASI Reference Information: Aleksey MARCUM, Kevin C, Shara D, Coral Varner.Development and validation of a tool to assist physicians identification of elder abuse: The Elder Abuse Suspicion Index (EASI ). Journal of Elder Abuse and Neglect, 2008; 20 (3): 276-300. - Elder Maltreatment Screen Quality Measures: Elder Maltreatment Screen and Follow-Up Plan Elder Maltreatment Screen: <Negative, No Follow-Up Plan Required> [G8734]
--- NOTE | 2019-04-17 13:24 | Consult ---
Consult Order Detail - Reason for Consult Consult Date: 04/17/19 Consult Order Detail: Cardiology Consultation - Chief Complaint Chief Complaint: WEAKNESS HPI Consult - History of Present Illness Admitting Diagnosis: Weakness with gait instability. UTI. CHF exacerbation History of Present Illness: Ms. Carrera is an 83 yo female with past medical history of permanent atrial fibrillation, pulmonary fibrosis on home oxygen, and congestive heart failure. She previously followed with [facility]. Echocardiogram in May 2017 demonstrated preserved LV EF of 65% with mild biatrial enlargement, mild MR, increased RV size with reduced function, and moderate TR. She is unsure of her last stress test or cardiac catheterization but denies history of CAD. She presented to [facility] with complaint of weakness and shortness of breath. She has been diagnosed with a UTI and is currently on antibiotics. Chest x-ray did not demonstrate any acute cardiopulmonary process but did demonstrate an enlarged cardiac silhouette and severe pulmonary fibrosis. proBNP was elevated at 7,600. troponin WNL x1. Renal function stable with BUN of 15 and creatinine of 0.8. She normally takes lasix at home and does have chronic peripheral edema. She has been receiving IV lasix here. Blood pressure is stable at 132/69 mmhg. Telemetry demonstrates atrial fibrillation with controlled rates. Her shortness of breath has improved today and she has worked with physical therapy. Plans for discharge today. Cardiology was consulted for further management of CHF. ROS Constitutional: Reports: As per HPI, Weakness. Denies: Chills, Fever Eyes: Denies: Eye discharge, Eye pain, Vision change - ENT ENT: Denies: Congestion, Ear pain, Throat pain - Respiratory Respiratory: Reports: As per HPI, Cough. Denies: Hemoptysis, Stridor, Wheezes - Cardiovascular Cardiovascular: Denies: Arrhythmia, Chest pain, Palpitations, Syncope - Endocrine Endocrine: Reports: As per HPI, Fatigue - Gastrointestinal Gastrointestinal: Denies: Abdominal pain, Diarrhea, Nausea, Vomiting - Genitourinary Genitourinary: Denies: Dysuria - Musculoskeletal Musculoskeletal: Denies: Back pain - Skin Skin: Denies: Rash - Neurological Neurological: Reports: As per HPI, Weakness. Denies: Headache, Tingling, Tremors - Psychiatric Psychiatric: Denies: Anxiety, Suicidal thoughts - Hematological/Lymphatic Hematological/Lymphatic: Denies: Anemia Past Medical History - SOCIAL HISTORY Smoking Status: Never smoker Alcohol Use: None Drug Use: None - RESPIRATORY Hx Respiratory Disorders: Yes Hx Asthma: No Hx Bronchitis: No Hx COPD: Yes Hx Dyspnea: No Hx Pneumonia: Yes Hx Pulmonary Embolism: No Hx Sleep Apnea: No Hx Tuberculosis: No Hx of CPAP: No - CARDIOVASCULAR Hx Cardio Disorders: Yes Hx Abnormal EKG: No Hx Cardiac Cath: No Hx Chest Pain: No Hx CHF: Yes (patient denies CHF) Hx Deep Vein Thrombosis: No Hx Edema: Yes Hx Heart Attack: No Hx Hypertension: No Hx Hypotension: No Hx Irregular Heartbeat: Yes (Atrial fib) Hx Palpitations: No Hx Pacemaker/Defib: No Hx Vascular Disease: No Comment:: high cholesterol - NEURO Hx Neuro Disorders: No Hx Brain Tumor: No Hx CVA: No Hx Dementia: No Hx Dizziness: No Hx Headaches: No Hx Neuropathy: No Hx Parkinson's Disease: No Hx Seizures: No Hx Speech Problem: No Hx TIA: No - GI Hx GI Disorders: No Hx Abdominal Pain: No Hx Celiac Disease: No Hx Crohn's Disease: No Hx Diverticulitis: No Hx GI Bleed: No Hx Reflux: No Hx Hepatitis/Jaundice: No Hx Hiatal Hernia: No Hx Irritable Bowel: No Hx Liver Disease: No Hx Nausea/Vomiting: No Hx Obstructive Bowel: No Hx Pancreatitis: No Hx Rectal Bleeding: No Hx Ulcer: No Hx Wt Loss/Wt Gain: No Hx of Polyps: No - Hx Genitourinary Disorders: No Hx Bladder Problem: No Hx Dialysis: No Hx Kidney Stones: No Hx Renal Disease: No Hx UTI: No - ENDOCRINE Hx Endocrine Disorders: Yes Hx Diabetes: Yes (diet controlled) Hx Thyroid Disease: No - MUSCULOSKELETAL Hx Musculoskeletal Disorders: No Hx Arthritis: No Hx Back Injury: No Hx Fibromyalgia: No Hx Gout: No Hx Musculoskeletal Disease: No Hx Osteoporosis: No - PSYCH Hx Psych Problems: No Hx Anxiety: No Hx Behavior Problems: No Hx Depression: No Hx Emotional Abuse: No Hx Sexual Abuse: No Hx Suicide Attempt: No - HEMATOLOGY/ONCOLOGY Hx Hematology/Oncology Disorders: No Hx Anemia: No Hx Blood Disorders: No Hx Bruising: No Hx Cancer: No Hx Clotting Problems: No Hx Sickle Cell Disease: No Hx Unexplained Bleeding: No Hx Blood Transfusions: No Hx Blood Transfusion Reaction: No Family Medical History Any Significant Family History?: No Hx Diabetes: Mother Hx Heart Disease: Father *Heart Comment: afib Hx Resp Disorders: Grandparents *Resp Comment: TB H&P Meds - Home Medications and Allergies Home Medications Medication Instructions Recorded Confirmed Last Taken Furosemide [Lasix] 40 mg PO DAILY 04/14/19 04/14/19 Unknown Potassium Chloride 1 packet PO DAILY 04/14/19 04/14/19 Unknown Previous Rx's Medication Instructions Recorded Albuterol Sulfate [Proair Hfa] 2 puff IH QID PRN #1 inhaler 04/22/17 Albuterol Sulfate [Ventolin Hfa] 2 puff INH [id number] #1 inhaler 04/25/17 Allergies Allergy/AdvReac Type Severity Reaction Status Date / Time No Known Drug Allergies Allergy Verified 04/14/19 21:25 Physical Exam - Vital Signs Vital Signs: Vital Signs - Last 24 Hrs Temp Pulse Pulse Resp BP Pulse Ox 04/17/19 12:00 66 16 127/57 100 04/17/19 09:43 97.7 F 65 16 132/69 96 04/17/19 09:00 65 65 16 04/17/19 04:00 98.9 F 65 53 L 16 129/53 95 04/16/19 21:00 65 60 18 04/16/19 20:00 98.1 F 65 60 18 148/66 96 04/16/19 16:00 97.6 F 55 L 16 146/55 90 L - General General Appearance: Alert, Oriented x3, Cooperative, No acute distress Limitations: No limitations - Head Head exam: Atraumatic, Normocephalic Head exam detail: negative: Abrasion, Contusion, General tenderness, Hematoma - Eye Eye exam: Normal appearance, PERRL, EOMI - ENT ENT exam: Mucous membranes dry, Normal external ear exam Nasal Exam: Normal inspection Mouth exam: Normal external inspection - Neck Neck exam: Normal inspection, Full ROM. negative: Lymphadenopathy, Tenderness - Respiratory Respiratory exam: Prolonged expiratory. negative: Rhonchi - Cardiovascular Cardiovascular Exam: Irregular rhythm. negative: Diastolic murmur, Tachycardia Peripheral Pulses: 2+: Radial (R), Radial (L), Dorsalis Pedis (R), Dorsalis Pedis (L) - GI/Abdominal GI/Abdominal exam: Soft, Normal bowel sounds. negative: Guarding, Rebound, Tenderness - Rectal Rectal exam: Deferred - exam: Deferred - Extremities Extremities exam: Pedal edema (2+ right, 1+ left). negative: Tenderness - Back Back exam: Denies: Paraspinal tenderness - Neurological Neurological exam: Alert, Oriented X3 - Psychiatric Psychiatric exam: Normal affect, Normal mood - Skin Skin exam: Other (Pt with thick dry scaled skin to legs without weeping or erythema; chronic skin changes) Results - Labs Result Diagrams: 04/16/19 06:00 04/17/19 06:12 Labs Last 24 Hours: Laboratory Results - last 24 hr 04/17/19 06:12 Sodium 134 L Potassium 4.1 Chloride 96 L Carbon Dioxide 24.0 Anion Gap 14.0 BUN 15 Creatinine 0.8 Estimated GFR > 60 Random Glucose 108 Calcium 8.5 L - Imaging and Cardiology EKG Status: Image reviewed (atrial fibrillation with controlled rates ) CXR Status: Report reviewed (enlarged cardiac silhouette and severe pulmonary fibros is ) echo 05/2017 Status: Report reviewed (preserved LV EF 65% with mild biatrial enlargement, mild MR, increased RV size and decreased RV function, moderate TR ) Assessment and Plan - Disposition Disposition: 1. Weakness 2. HFpEF 3. UTI 4. Chronic Atrial Fibrillation 5. Pulmonary Fibrosis 6. CHF Ms. Carrera is an 83 yo female with past medical history of permanent atrial fibrillation, pulmonary fibrosis on home oxygen, hypertension, and congestive heart failure. She previously followed with [facility]. Echocardiogram in May 2017 demonstrated preserved LV EF of 65% with mild biatrial enlargement, mild MR, increased RV size with reduced function, and moderate TR. She is unsure of her last stress test or cardiac catheterization but denies history of CAD. She presented to [facility] with complaint of weakness and shortness of breath. She has been diagnosed with a UTI and is currently on antibiotics. Chest x-ray did not demonstrate any acute cardiopulmonary process but did demonstrate an enlarged cardiac silhouette and severe pulmonary fibrosis. proBNP was elevated at 7,600. troponin WNL x1. Renal function stable with BUN of 15 and creatinine of 0.8. She normally takes lasix at home and does have chronic peripheral edema. She has been receiving IV lasix here. Blood pressure is stable at 132/69 mmhg. Telemetry demonstrates atrial fibrillation with controlled rates. Her shortness of breath has improved today and she has worked with physical therapy. Plans for discharge today. Cardiology was consulted for further management of CHF. At this time I agree with diuresis. Echocardiogram can be performed as an outpatient. Discussed risk of stroke with atrial fibrillation in detail. [id number] score is elevated at at least 5 (female, age, HTN, CHF). Patient has declined anticoagulation at this time. She was taken off Coumadin years ago by her previous physicians. She deneies frequent falls or history of bleeding. Recommend follow up with cardiology after discharge.
== END 2019-04-17 16:20 | disposition home or self-care (01) | DRG 948 ==
LOC: ER 21:04 → MEDSURG 23:28
PROVIDERS: ADMIT Internal Medicine; ATTEND Internal Medicine
DX: R53.1 Weakness (principal); N39.0 Urinary tract infection, site not specified; R26.2 Difficulty in walking, not elsewhere classified; J44.9 Chronic obstructive pulmonary disease, unspecified; I50.9 Heart failure, unspecified; Z79.01 Long term (current) use of anticoagulants; I48.91 Unspecified atrial fibrillation; R05 Cough; R60.9 Edema, unspecified; J84.10 Pulmonary fibrosis, unspecified; E78.00 Pure hypercholesterolemia, unspecified; Z99.81 Dependence on supplemental oxygen; E11.9 Type 2 diabetes mellitus without complications; Z66 Do not resuscitate
CPT/HCPCS: 70450; 71046; 80048; 80053; 81001; 83880; 84443; 84484; 85025; 93005; 93010; 99223; 99233; 99239; 99285; J0696; J1650; J1940; J7040